=== PATIENT | male | born 1960 | race Caucasian/White ===

== ENCOUNTER 2019-04-23 14:38 | Emergency (ER) | payer OTHER, SELFPAY ==
[2019-04-23 14:41] VITALS: BP 154/104; PULSE 109; RESP 16; TEMP 37.1; O2SAT 97; BMI 34.8
--- NOTE | 2019-04-23 14:55 | CT_ITS ---
STUDY: CT ABDOMEN AND PELVIS WITH CONTRAST REASON FOR EXAM: Male, 58 years old. PT STATED LEFT SIDE PAIN RADIATION DOSAGE (If Supplied By Facility): CTDIvol = ( 17.02 ) mGy, DLP = ( 1579.19 ) mGycm TECHNIQUE: Transaxial images were obtained from the dome of the diaphragm to the symphysis pubis without oral contrast. IV 100mL Isovue-300 was administered. Sagittal and coronal images were reconstructed. Individualized dose optimization techniques were used for this CT. COMPARISON: None. FINDINGS: The visualized lung bases are unremarkable. The visualized portions of the heart are within normal limits. Normal liver. Normal gallbladder and extrahepatic biliary system. Normal spleen. Normal pancreas. Normal bilateral adrenal glands. Normal right kidney. Normal left kidney. Normal visualized stomach. Normal small intestine. There is diverticulosis, with thickening of the colon wall, and pericolonic inflammation changes consistent with acute diverticulitis. The appendix is visualized and appears normal. Normal abdominal aorta. Normal inferior vena cava. Normal retroperitoneum. Normal urinary bladder. Normal abdominal wall. Levoscoliosis of the lumbar spine with degenerative disc disease. CT/Abdomen/Pelvis W IV Cont ONLY IMPRESSION: Diverticulitis the proximal sigmoid colon without abscess or perforation. Electronically Signed: Lucio Sun MD at 16:45 EST Tel , Service support ,
--- NOTE | 2019-04-23 15:02 | ED.VIS.GEN ---
History of Present Illness Chief Complaint: Abd Pain Informant: Patient Onset: Yesterday Context: Gradual Onset Timing: Continuous Current Severity: Moderate Maximum Severity: Moderate Narrative: Patient is an otherwise healthy male who presents to the emergency department with left lower quadrant pain. He states pain began last night. He states it felt like a dull ache in his left lower quadrant. Overnight throughout the morning, the pain is worsened. He states if he bends or twists, the patient is more significant. He denies fever but does admit to chills. He is been moving his bowels without issue. He denies any other systemic complaints. He states he never had pain like this before. He has no prior history of abdominal surgery. He is otherwise been in his normal state of health. Prior similar symptoms: No Recent Illness/Hospitalization: No Past Medical History - Allergies and Home Meds Allergies/Adverse Reactions: Allergies No Known Allergies Allergy (Verified 04/23/19 14:40) Primary Care Physician: Pawel Juares MD [NON-STAFF] - Prior records reviewed: Yes Past Medical History: None Surgical History: no surgical history Smoking Status: Never smoker Review of Systems General: Reports: Chills. Denies: Fever, Sweats Eyes: Denies: Visual changes - bilaterally, Diplopia ENT: Denies: Rhinorrhea, Sore throat Cardiovascular: Denies: Chest pain, Palpitations Respiratory: Denies: Dyspnea, Cough, Dyspnea on exertion Gastrointestinal: Reports: Abdominal pain. Denies: Nausea, Vomiting, Diarrhea, Melena, Hematochezia Genitourinary: Denies: Dysuria, Hematuria, Frequency Musculoskeletal: Denies: Back pain, Extremity Pain Skin: Denies: Rash, Wounds Neurological: Denies: Headache, Weakness, Numbness Physical Exam Vital Signs/Narrative: Vital Signs Temp Pulse Resp BP Pulse Ox 04/23/19 14:41 98.8 F 109 H 16 154/104 H 97 Inital Vital Signs reviewed: Yes General: Well nourished, Well developed, No Acute Distress Head: Normocephalic, Atraumatic Eyes: Perrl, EOMI ENT: Moist mucous membranes, No rhinorrhea Neck: Supple, Nontender Cardiovascular: Regular rate, Regular rhythm, No murmurs Respiratory: No distress, CTA bilaterally, Chest nontender Abdomen: Soft, Nondistended, Normal bowel sounds, Tender. Negative for: Guarding, Rebound tenderness, Hyperactive bowel sounds Back: Nontender, Normal Inspection Extremities: Nontender, No edema Skin: Normal color, No rash Neurological: Alert, Oriented x3, Cranial nerves II-XII grossly intact, Normal Strength, Normal Sensation Psychological: Normal affect, Normal Mood Diagnostic/Tx/Re-eval Clinical Impression(s) from Imaging Studies Abdomen/Pelvis CT 04/23/19 14:55 IMPRESSION: Diverticulitis the proximal sigmoid colon without abscess or perforation. Electronically Signed: Lucio Sun MD at 16:45 EST Tel , Service support , - Medical Decision Making Laboratory Results 04/23/19 15:15: WBC 20.9 H, RBC 5.36, Hgb 15.4, Hct 46.2, MCV 86.2, MCH 28.7, MCHC 33.3, RDW Std Deviation 44.0 H, RDW Coeff of Inga 14.0, Plt Count 308, MPV 10.3, Immature Gran % (Auto) 0.500, Neut % (Auto) 83.7 H, Lymph % (Auto) 8.0 L, [place] % (Auto) 7.5, Eos % (Auto) 0.0, Baso % (Auto) 0.3, Absolute Neuts (auto) 17.5 H, Absolute Lymphs (auto) 1.67, Nucleated RBC % 0, Differential Comment SCANNED 04/23/19 15:15: Sodium 134 L, Potassium 3.7, Chloride 102, Carbon Dioxide 26.0, Anion Gap 6, BUN 26 H, Creatinine 1.13, Estim Creat Clear Calc 74.04, Est GFR (MDRD) Af Amer 85, Est GFR (MDRD) Non-Af 70, BUN/Creatinine Ratio 23.0 H, Glucose 120 H, Calcium 9.0, Total Bilirubin 1.30 H, AST 14 L, ALT 28, Alkaline Phosphatase 84, Total Protein 8.4 H, Albumin 4.2, Globulin 4.2, Albumin/Globulin Ratio 1.0 The patient presents to the emergency department left lower quadrant pain. He also admits to chills. IV was established. He declined any analgesics but was given Toradol with some improvement. Screening labs do show leukocytosis. Patient is afebrile with normal heart rate. Patient underwent CT imaging which does demonstrate diverticulitis without perforation or abscess. I did discuss options with him. He states he is feeling fine. He wants to attempt outpatient therapy. I do feel that this is reasonable. The patient is given a dose of IV Zosyn will be continued on Augmentin stool softeners. He is comfortable with this plan of care. He was also counseled to be reevaluated within the next 24 hours or if the symptoms worsen in any way to return to the emergency department. He will be discharged home. Impression 1. Acute diverticulitis ED Disposition - Plan for ED Patient: Instructions: Diverticulitis Prescriptions: Amox/Clavulanate Tablet [Augmentin Tablet] 875 mg PO Q12H #20 tab Prescription Printed Docusate Sodium [Colace] 100 mg PO DAILY #20 cap Prescription Printed Referrals: Pawel Juares MD [NON-STAFF] - 1 Day for another exam
[2019-04-23] MEDS: Ketorolac 30 MG/ML Syringe 15 MG IV (15:15)
[2019-04-23] MEDS: 0.9% Normal Saline 1,000 ML 1000 ML IV (15:18)
[2019-04-23 15:33] LABS: Absolute Lymphocyte Count 1.67 X10^3/uL (0.83-4.51); Absolute Neutrophil Count 17.5 X10^3/uL (2.0-7.7); Basophil# 0.06 X10^3/uL; Basophil% 0.3 % (0-1); Hematocrit 46.2 % (40-54); Hemoglobin 15.4 g/dL (13.0-16.5); Lymphocyte # 1.67 X10^3/ul (4.0); Mean Corp Hgb Conc 33.3 g/dL (32-36); Mean Corpuscular Hgb 28.7 pg (27.0-32.0); Mean Corpuscular Volume 86.2 fL (80-94); Mean Platelet Vol. 10.3 fl (6.2-12.0); Monocyte# 1.56 X10^3/uL; Monocyte% 7.5 % (0-10); NRBC Flagged by Analyzer 0 % (0-5); Neutrophil # 17.47 X10^3/uL (2.7-7.7); Neutrophil % 83.7 % (47-70); POSITIVE DIFFERENTIAL YES; Platelet Count 308 K/mm3 (150-450); Red Blood Count 5.36 M/mm3 (4.6-6.2); White Blood Count 20.9 K/mm3 (4.4-11.0)
[2019-04-23 15:36] LABS: Differential Indicated SCAN CRITERIA MET
[2019-04-23 15:58] LABS: Differential Comment SCANNED
[2019-04-23 16:19] LABS: AST(SGOT) 14 U/L (15-37); Alanine Aminotransfer ALT/SGPT 28 U/L (16-61); Albumin, Serum 4.2 g/dL (3.2-5.0); Alkaline Phosphatase 84 U/L (45-117); Anion Gap 6 (5-15); BUN 26 mg/dL (7-18); Chloride 102 mmol/L (98-107); Creatinine, Serum 1.13 mg/dL (0.70-1.30); EST Glomerular Filtration Rate 70 mL/min (>60); Est Glom Filt Rate - Afr Amer 85 mL/min (>60); Estimated Creatinine Clearance 74.04 ml/min; Globulin 4.2 g/dL (2.2-4.2); Glucose 120 mg/dL (74-106); Potassium 3.7 mmol/L (3.5-5.1); Protein, Total 8.4 g/dL (6.4-8.2); Sodium Level 134 mmol/L (136-145)
[2019-04-23 16:39] VITALS: BP 149/79; PULSE 94; RESP 16; O2SAT 98
[2019-04-23 17:03] LABS: Bacteria 0 SEEN /hpf (None Seen); Mucous, Urine 0 SEEN /hpf (<or=2+)
[2019-04-23 17:05] LABS: Glucose, Dipstick Normal (Normal); Ketone-Dipstick Negative (Negative); Leukocyte Esterase-Dipstick Negative /ul (Negative); Nitrite-Dipstick Negative (Negative); Occult Blood-Urine 10 /ul (Negative); Protein-Dipstick Negative (Negative); Urine Bilirubin Dipstick Negative (Negative); Urine Clarity Clear (Clear); Urine Urobilinogen Normal (Normal)
[2019-04-23 17:06] LABS: Color, Urine YELLOW (Yellow)
[2019-04-23 17:12] LABS: Squamous Epithelial Cells - UA 0-5 SEEN /hpf (0-5)
[2019-04-23 17:13] LABS: Transitional Epithelial - Ur 0-5 SEEN /hpf (0-5); White Blood Cells 0-5 SEEN /hpf (0-5)
[2019-04-23 17:14] LABS: Red Blood Cells-Urine 0-5 SEEN /hpf (0-5)
[2019-04-23 18:15] VITALS: BP 140/89; PULSE 87; RESP 16; TEMP 36.7; O2SAT 99
== END 2019-04-23 18:25 | disposition home or self-care (01) ==
LOC: ED 15:27
PROVIDERS: Emergency Provider Emergency Medicine
DX: K57.32 Diverticulitis of large intestine without perforation or abscess without bleeding (principal)
CPT/HCPCS: 74177; 80053; 81001; 85025; 96361; 96365; 96375; 99283; J7030; Q9967; A4216

== ENCOUNTER → 2019-06-05 09:28 | Outpatient (CLI) | payer OTHER, SELFPAY ==
[2019-06-05 12:27] LABS: Absolute Lymphocyte Count 2.69 X10^3/uL (0.83-4.51); Absolute Neutrophil Count 4.9 X10^3/uL (2.0-7.7); Basophil# 0.06 X10^3/uL; Basophil% 0.7 % (0-1); Eosinophil# 0.39 X10^3/uL; Eosinophils% 4.4 % (0-5); Hematocrit 47.3 % (40-54); Lymphocyte # 2.69 X10^3/ul (4.0); Lymphocyte % 30.5 % (19-41); Mean Corp Hgb Conc 33.8 g/dL (32-36); Mean Corpuscular Hgb 29.3 pg (27.0-32.0); Mean Corpuscular Volume 86.5 fL (80-94); Mean Platelet Vol. 10.7 fl (6.2-12.0); Monocyte# 0.72 X10^3/uL; Monocyte% 8.2 % (0-10); NRBC Flagged by Analyzer 0 % (0-5); Neutrophil # 4.93 X10^3/uL (2.7-7.7); Platelet Count 333 K/mm3 (150-450); RBC Distribution Width CV 14.1 % (11.6-14.6); RBC Distribution Width SD 45.1 fl (35.1-43.9); Red Blood Count 5.47 M/mm3 (4.6-6.2); White Blood Count 8.8 K/mm3 (4.4-11.0)
[2019-06-05 12:30] LABS: ALB/GLOB Ratio 1.2 RATIO (0.9-2.4); AST(SGOT) 25 U/L (15-37); Alanine Aminotransfer ALT/SGPT 42 U/L (16-61); Albumin, Serum 4.4 g/dL (3.2-5.0); Alkaline Phosphatase 90 U/L (45-117); Anion Gap 9 (5-15); BUN 28 mg/dL (7-18); BUN/Creat Ratio 25.7 RATIO (10-20); Calcium,Total 8.8 mg/dL (8.5-10.1); Chloride 103 mmol/L (98-107); Cholesterol 215 mg/dL (200); Creatinine, Serum 1.09 mg/dL (0.70-1.30); EST Glomerular Filtration Rate 73 mL/min (>60); Est Glom Filt Rate - Afr Amer 89 mL/min (>60); Globulin 3.8 g/dL (2.2-4.2); Glucose 97 mg/dL (74-106); High Density Lipoprotein 41 mg/dL; Magnesium 2.3 mg/dL (1.6-2.6); Potassium 4.1 mmol/L (3.5-5.1); Protein, Total 8.2 g/dL (6.4-8.2); Sodium Level 138 mmol/L (136-145); Thyroid Stim Hormone (TSH) 2.01 uIU/mL (0.358-3.74); Triglycerides 120 mg/dL; Very Low Density Lipoprotein 24 mg/dL (5-40)
== END ==
PROVIDERS: PCP Family Medicine; Visit Provider Family Medicine
DX: I49.9 Cardiac arrhythmia, unspecified (principal); K57.92 Diverticulitis of intestine, part unspecified, without perforation or abscess without bleeding; R17 Unspecified jaundice
CPT/HCPCS: 36415; 80053; 80061; 83735; 84439; 84443; 85025

== ENCOUNTER 2019-12-19 15:41 | Inpatient (IN) | payer OTHER, SELFPAY ==
[2019-12-19] VITALS (9 sets, daily range): BP systolic 138–163; BP diastolic 72–88; PULSE 91–99; RESP 16–18; TEMP 36.6–37.3; O2SAT 92–100; BMI 36.6
--- NOTE | 2019-12-19 14:12 | PCM.HP.BLA ---
History and Physical Date of Admission: 12/19/19 [facility] [address] [place], [place] [id number] OFFICE VISIT Date of Service: 12/19/19 MR#: [id number] Acct: [id number] Name: EDDIE KLINE Rep #: [id number] : 1960 Provider: Dr. Mirza Jama MD Age/Sex: 59/M Location: [facility] Status: Signed Intake Vital Signs 12/19/19 Height 5 ft 10 in 12/19/19 Weight: 255 lb 7 oz 12/19/19 BMI 36.6 12/19/19 BP 141/83 H 12/19/19 Blood Pressure Location Rt brachial 12/19/19 Position Sitting 12/19/19 Respiration 20 H 12/19/19 Pulse 90 12/19/19 Pulse Source NIBP 12/19/19 Temp 97.5 F L 12/19/19 Temp Source Temporal 12/19/19 Pulse Oximetry (%) 96 12/19/19 Oxygen Delivery Method room air 12/19/19 BMI 34.8 Intake Visit Reasons: Diverticulitis flare Chief Complaint: RLQ pain Maintenance Helper Required: No Is patient in pain?: No Allergies No Known Allergies Allergy (Verified 12/19/19 12:38) Medications Loratadine 10 mg PO DAILY 04/23/19 [History Confirmed 12/19/19] Naproxen Sodium [Aleve] 220 mg PO DAILY 04/23/19 [History Confirmed 12/19/19] lactobacillus combination no.9 4 billion cell capsule 4,000 mmu cells PO DAILY 06/19/19 [History Confirmed 12/19/19] valacyclovir 1 gram tablet 1,000 mg PO Q12H PRN 06/19/19 [History Confirmed 12/19/19] PFSH Medical History Arthritis (Acute) PVC (premature ventricular contraction) (Acute) Cervical radicular pain (Acute) Diverticulitis (Acute) Surgical History History of arthroscopy of both knees (Acute) Family History Son Heart disease Social History (Updated 12/19/19 @ 13:[address] Mirza Jama MD) Smoking Status: Never smoker second hand exposure: No alcohol intake: current alcohol intake frequency: holidays/special occasions only Alcohol type: beer substance use type: does not use caffeine: Yes what type of physical activity do you participate in: none frequency: does not exercise HPI HPI HPI: EDDIE KLINE, is a 59 M who presents to the office today for HPI HPI Surgical H&P: Yes HPI: EDDIE KLINE, is a 59 M who presents to the office today for Evaluation of right lower quadrant abdominal pain. Patient states that he started to develop some right sided abdominal pain that got quite severe to the point where he took some Percocet at home went to bed and now he has localized tenderness at McBurney's point. He is not complaining of any fevers nausea or vomiting. He has had episodes of diverticulitis in the past initially thought that this was a another episode. ROS General General: Yes appetite and fatigue; no weight change, colon cancer, breast cancer or weakness HEENT HEENT: No difficulty swallowing, eye injury, eye surgery, swollen glands or hoarseness Endo Endocrine: No thyroid disease, diabetes mellitus, thyroid cancer, Hair loss, heat intolerance or cold intolerance Cardio Cardiovascular: No murmur, pacemaker, heart disease, atrial fibrillation, high blood pressure, heart attack, heart stent, palpitations, shortness of breat with exertion or chest pain Psych Psychiatric: No depression, anxiety or hearing voices Resp Respiratory: No shortness of breath, No sleep apnea, No cough, No COPD, No asthma, No emphysema, No wheezing Gastro Gastrointestinal: Yes abdominal pain, No nausea or vomiting, No diarrhea, Yes constipation, No blood in stool, No acid reflux, No hemorrhoids, No ulcers, No gallbladder problem, No black,tarry stools Anjum Hematologic: No blood thinners, No blood disorders, No bleeding, No anemia, No blood clots Neuro Neurologic: No weakness Exam Const General: no acute distress, well developed, well hydrated Orientation: oriented to person, oriented to place, oriented to time [facility] Head: normocephalic, atraumatic Ears: external ears normal Mouth: moist mucous membranes Eyes Sclera: sclerae normal Pupils: normal by confrontation Neck Neck: no lymphadenopathy noted Neck mass: No Thyroid: thyroid normal, symmetrical Chest Chest palpation & inspection: normal inspection of the chest Resp Effort & Inspection: normal respiratory effort Auscultation: clear to auscultation bilaterally Percussion: percussion normal Cardio Rate: regular rate Rhythm: regular rhythm Heart Sounds: no murmurs GI Palpation: soft, no hepatosplenomegaly, no masses, tender in the RLQ and at McBurney's point Rectal Exam: other Other: Rectal exam deferred. Extrem General: normal to inspection, no clubbing, cyanosis or edema Assessment & Plan Problems 1. Acute appendicitis with localized peritonitis, unspecified whether abscess present, unspecified whether gangrene present, unspecified whether perforation present K35.30 Plan My plan is to perform a laparoscopic appendectomy. Risk benefits to include bleeding infection possible delayed abscess formation which could require further surgery have been reviewed with the patient. Patient also understands that he may need to have a drain placed if this is ruptured which I do not think that it is. We reviewed the pre-operative plans with the patient. Risks and benefits of the procedure were fully explained, including but not limited to infection, neurovascular injury, continued pain, arthritis, stiffness, need for further surgery, re-injury, DVT, PE, general risks of anesthesia, and loss of the limb or life. The patient understands all the risks and does wish to proceed with written consent. Coding Level of Care Code Off vis,est,level 3 Diagnoses Acute appendicitis with localized peritonitis, unspecified whether abscess present, unspecified whether gangrene present, unspecified whether perforation present K35.30 ??Acute appendicitis type: with localized peritonitis ??Appendicitis gangrene presence: unspecified whether gangrene present ??Appendicitis perforation presence: unspecified whether perforation present ??Appendicitis abscess presence: unspecified whether abscess present Comment Modifier 57 12/19/19 1305 <Electronically signed by Mirza Jama MD> Date Mirza Jama MD Cosigner Signature: Date (if applicable) CC: Dr. Pawel Juares MD ~
[2019-12-19] MEDS: Lactated Ringers 1,000 ML 100 ML IV ×2 (14:23→16:30)
--- NOTE | 2019-12-19 14:36 | EKG12_ITS ---
Test Reason : PREOP Blood Pressure : / mmHG Vent. Rate : 083 BPM Atrial Rate : 083 BPM P-R Int : 166 ms QRS Dur : 102 ms QT Int : 386 ms P-R-T Axes : 052 -21 036 degrees QTc Int : 453 ms Sinus rhythm with occasional Premature ventricular complexes Otherwise normal ECG No previous ECGs available Confirmed by ROSIE CLARK, ANITHA ([id number]), editor city CELESTINE RIOJAS ([id number]) on 12/25/2019 11:44:14 AM Referred By: Mirza Jama Confirmed By:DANUTA VELEZ MD
[2019-12-19 15:05] LABS: Absolute Lymphocyte Count 1.27 X10^3/uL (0.83-4.51); Absolute Neutrophil Count 16.7 X10^3/uL (2.0-7.7); Basophil# 0.05 X10^3/uL; Basophil% 0.3 % (0-1); Eosinophil# 0.01 X10^3/uL; Eosinophils% 0.1 % (0-5); Hematocrit 43.7 % (40-54); Hemoglobin 14.7 g/dL (13.0-16.5); Lymphocyte # 1.27 X10^3/ul (4.0); Lymphocyte % 6.6 % (19-41); Mean Corp Hgb Conc 33.6 g/dL (32-36); Mean Corpuscular Hgb 29.8 pg (27.0-32.0); Mean Corpuscular Volume 88.6 fL (80-94); Monocyte# 1.07 X10^3/uL; Monocyte% 5.6 % (0-10); NRBC Flagged by Analyzer 0 % (0-5); Neutrophil # 16.74 X10^3/uL (2.7-7.7); Platelet Count 288 K/mm3 (150-450); RBC Distribution Width CV 14.2 % (11.6-14.6); RBC Distribution Width SD 45.9 fl (35.1-43.9); Red Blood Count 4.93 M/mm3 (4.6-6.2); White Blood Count 19.2 K/mm3 (4.4-11.0)
[2019-12-19 15:22] LABS: Anion Gap 6 (5-15); BUN 18 mg/dL (7-18); Calcium,Total 9.1 mg/dL (8.5-10.1); Chloride 101 mmol/L (98-107); EST Glomerular Filtration Rate 81 mL/min (>60); Est Glom Filt Rate - Afr Amer 98 mL/min (>60); Glucose 99 mg/dL (74-106); Potassium 3.4 mmol/L (3.5-5.1); Sodium Level 136 mmol/L (136-145)
--- NOTE | 2019-12-19 15:39 | PCM.OPRPT ---
Problem List (1) Acute appendicitis Status: Acute Qualifiers: Acute appendicitis type: with localized peritonitis Appendicitis gangrene presence: without gangrene Appendicitis perforation presence: without perforation Appendicitis abscess presence: without abscess Qualified Code(s): K35.30 - Acute appendicitis with localized peritonitis, without perforation or gangrene Report of Operation Date of Procedure: 12/19/19 Pre-Operative Diagnosis: Acute appendicitis Post-Operative Diagnosis: Same Surgery/Procedure Performed:: Laparoscopic appendectomy Type of Anesthesia:: General Anesthesiologist: Jack Cook Specimen's removed: Appendix Drains: 15 round Vernon-Doyle Estimated Blood Loss (mL): < 25 cc Description of Procedure: Patient was brought into the operating room. Placed in the supine position. Under excellent general trach intubation abdomen was sterilely prepped and draped in usual fashion. Local was injected infraumbilically dissection was carried down to the fascia the fascia grasped with a [place] varies needle was placed inside the abdomen the abdomen was insufflated to 15 torr. A 10/12 trocar was placed without difficulty. Suprapubic #5 trocar was placed and a left lower quadrant #5 trocar was placed both of these under direct visualization without injury to underlying structures. Purulent material was identified in the right lower quadrant I dissected the small intestines free from the right lower quadrant the appendix was resting up against the sigmoid colon which was actually plastered to the right pelvic wall. I dissected this free with the Enseal. I came down on the mesoappendix with the Enseal I had excellent hemostasis I transected the base of the appendix with a 45 linear cutter. I had excellent hemostasis placed a specimen in a specimen bag and I delivered through the umbilical port. I reinflated the abdomen I inspected the sigmoid colon it was abnormally plastered to the right pelvic sidewall. There was no pus coming from it it seems somewhat firm but the anterior aspect was very pliable and soft I did not think that it was appropriate for me to try to dissect further back there because I was not prepared to do a sigmoid colon resection on him if I were to get into the sigmoid colon itself.. I am really not sure whether or not the appendix caused inflammation of the colon or if the colon because the inflammation of the appendix. At this point I thought the best thing to do was irrigate out the area and place a drain into the pelvis area. I placed the trocar in the right upper quadrant I brought the drain in through the left lower quadrant and brought it out through the right upper quadrant. I sutured it to the skin with a 3-0 nylon. I placed a second 3-0 nylon on the skin to close this defect completely. I placed it at the base of where the appendix was and down to where the inflamed area of the cecum was located. Once again I inspected I saw no stool or undrained abscesses I removed the trochars under direct visualization. Fascia the umbilical port was closed with a [id number] stitch of 0 Vicryl. Skin incisions were closed with subcuticular stitches of 4-0 Monocryl. Steri-Strips were applied sterile dressings were applied and the patient tolerated the procedure well. I am going to keep him on a clear liquid diet. I am going to obtain a CAT scan of his abdomen and pelvis with IV and p.o. contrast tomorrow. Will remain on IV antibiotics. - Admit VTE Documentation VTE Present on Admission: No VTE Mechan Device Prophylaxis: SCD's VTE Pharm Prophylaxis ordered?: No Reason prophylaxis not ordered:: Treatment Not Indicated [id number]: [id number] Laparoscopy appendectomy
--- NOTE | 2019-12-19 16:20 | APP_PTH ---
PATIENT: EDDIE KLINE LOC: [facility] U#:[id number] AGE/SX: 59/M ROOM: MS318 RE12/19/[address]: Dr. Mirza Jama MD : 1960 BED: 1 DIS: 12/24/2019 SPEC #: [id number] RECD: 12/20/19 07:28 STATUS: TAMMY REQ #: [id number] KRYSTA: 12/19/19 16:[address]: Mirza Jama DEPT: SURGICAL PATHOLOGY RECD BY: Randall Brand ENTERED: 12/20/19 07:59 SP TYPE: APPENDIX OTHR DR: Dr. Pawel Juares MD Tissues: Appendix, NOS Procedures: Surgery Specimen Level III HEADER OPERATION: Laparoscopic appendectomy PRE-OP DIAGNOSIS: Acute appendicitis TISSUE SUBMITTED: Appendix MICROSCOPIC DIAGNOSIS Appendix, appendectomy: Acute periappendicitis. See comment. ANALIA:richardson 12/23/19 COMMENT The entire appendix is examined. The acute inflammation predominantly is noted in the periappendiceal adipose tissue and adjacent muscularis propria of appendix. Luminal and mucosal inflammation is not seen. Clinical correlation and appropriate follow up are necessary. Case has been reviewed in consultation with Dr. Romeo who concurs with the above diagnosis. IDC:AM MICROSCOPIC DESCRIPTION Slides are reviewed. GROSS DESCRIPTION Received in fixative is one container labeled with the patient's name and designated appendix. The specimen consists of an L-shaped appendix measuring 5 cm in length and up to 0.7 cm in diameter. The attached periappendiceal adipose tissue measures up to 1.5 cm in width. The serosa is congested. No obvious perforation is identified. The lumen does not contain any fecalith. The entire appendix is submitted in two cassettes as follows: 1 - tip and proximal portion, 2 - rest of the appendix. / SJ:rg 12/20/19 TC:2 CPT: 50475
[2019-12-19] MEDS: Bupivacaine Mpf 0.5% 30 ML VIAL (16:36)
[2019-12-19] MEDS: 0.9% Saline Lock 10 ML Syringe IV (22:06)
[2019-12-20 02:00] VITALS: BP 133/71; PULSE 75; RESP 16; TEMP 36.6; O2SAT 96
[2019-12-20] MEDS: oxyCODONE 5 MG Tablet PO (02:13)
[2019-12-20 05:54] VITALS: BP 120/63; PULSE 65; RESP 16; TEMP 36.9; O2SAT 95
[2019-12-20 06:56] LABS: Absolute Lymphocyte Count 1.02 X10^3/uL (0.83-4.51); Absolute Neutrophil Count 17.7 X10^3/uL (2.0-7.7); Basophil# 0.02 X10^3/uL; Basophil% 0.1 % (0-1); Hematocrit 43.5 % (40-54); Hemoglobin 14.4 g/dL (13.0-16.5); Lymphocyte # 1.02 X10^3/ul (4.0); Lymphocyte % 5.2 % (19-41); Mean Corp Hgb Conc 33.1 g/dL (32-36); Mean Corpuscular Hgb 29.4 pg (27.0-32.0); Mean Corpuscular Volume 88.8 fL (80-94); Mean Platelet Vol. 10.7 fl (6.2-12.0); Monocyte# 0.68 X10^3/uL; Monocyte% 3.5 % (0-10); NRBC Flagged by Analyzer 0 % (0-5); Neutrophil # 17.72 X10^3/uL (2.7-7.7); Neutrophil % 90.7 % (47-70); POSITIVE MORPHOLOGY YES; Platelet Count 349 K/mm3 (150-450); RBC Distribution Width CV 14.4 % (11.6-14.6); RBC Distribution Width SD 46.7 fl (35.1-43.9); White Blood Count 19.5 K/mm3 (4.4-11.0)
[2019-12-20 06:58] LABS: Differential Indicated SCAN CRITERIA MET
[2019-12-20 07:22] LABS: Anion Gap 8 (5-15); BUN 19 mg/dL (7-18); BUN/Creat Ratio 18.1 RATIO (10-20); Calcium,Total 9.1 mg/dL (8.5-10.1); Chloride 105 mmol/L (98-107); Creatinine, Serum 1.05 mg/dL (0.70-1.30); EST Glomerular Filtration Rate 76 mL/min (>60); Est Glom Filt Rate - Afr Amer 92 mL/min (>60); Estimated Creatinine Clearance 76.28 ml/min; Glucose 126 mg/dL (74-106); Potassium 3.9 mmol/L (3.5-5.1); Sodium Level 138 mmol/L (136-145)
[2019-12-20 07:43] VITALS: BP 131/77; PULSE 75; RESP 18; TEMP 36.6; O2SAT 95
--- NOTE | 2019-12-20 08:30 | CT_ITS ---
STUDY: CT ABDOMEN AND PELVIS WITH CONTRAST REASON FOR EXAM: Male, 59 years old. APPENDECTOMY YESTERDAY. DRAIN IN PLACE RADIATION DOSAGE (If Supplied By Facility): CTDIvol = ( 11.38 ) mGy, DLP = ( 1433.68 ) mGycm TECHNIQUE: Transaxial images were obtained from the dome of the diaphragm to the symphysis pubis without oral contrast. 100mL Isovue-300 was administered. Sagittal and coronal images were reconstructed. Individualized dose optimization techniques were used for this CT. COMPARISON: April 23, 2019. FINDINGS: There is lower lung consolidation. The visualized portions of the heart are within normal limits. There is hepatomegaly with diffuse hepatic enlargement. Normal gallbladder and extrahepatic biliary system. Normal spleen. Normal pancreas. Normal bilateral adrenal glands. Normal right kidney. Normal left kidney. Normal visualized stomach. Mild fluid and gaseous distention of small intestine. There are multiple colonic diverticula consistent with diverticulosis. There are surgical clips in the region of the appendix consistent with a prior appendectomy. There is a surgical drain in the abdomen. There is no fluid collection. There is mild infiltrative change. There is mild free intraperitoneal air in the abdomen. Normal abdominal aorta. Normal inferior vena cava. Normal retroperitoneum. Normal urinary bladder. Normal abdominal wall. There is levoscoliosis with degenerative change of the spine. There is sacroiliac spurring and partial ankylosis. CT/Abdomen/Pelvis WITH Contrast IMPRESSION: Status post appendectomy. There is drain in place. No abscess or fluid collection. Pneumoperitoneum consistent with recent postoperative status. Small bowel distention with fluid and air suggesting ileus. Colonic diverticulosis. Lower lung atelectasis or infiltrates. Electronically Signed: Clinton Jung MD at 10:28 EDT , Service support ,
[2019-12-20] MEDS: 0.9% Saline Lock 10 ML Syringe IV (10:28)
--- NOTE | 2019-12-20 11:24 | PN.SURG_ITS ---
Patient Problems: Active and Suspected Problems (Last Reviewed 12/19/19 @ 13:[address] Mirza Jama MD) Acute appendicitis (Acute) Subjective: Patient is feeling significantly better today. Has appropriate incisional pain. Has passed some slight flatus but no bowel movements he is not experiencing any nausea or vomiting. Objective: Dressings are dry. Fluid in ZIGGY drain is serous in nature. - Physical Exam Vitals/I&O's: Vital Signs Temp Pulse Resp BP Pulse Ox 97.8 F 75 18 131/77 H 95 12/20/19 07:43 12/20/19 07:43 12/20/19 07:43 12/20/19 07:43 12/20/19 07:43 Oxygen Flow Rate (L/min) 2 Oxygen Delivery Method Room Air Weight: 255 lb Body Mass Index (BMI) 36.6 Intake and Output for Last 24 Hours 12/18/19 12/19/19 12/20/19 23:59 23:59 23:59 Intake Total 1350.34 / 1650.34 1180.83 / 1180.83 Output Total 210 / 1445 1635 / 1635 Balance 1140.34 / 205.34 -454.17 / -454.17 Laboratory Results 12/19/19 14:57: WBC 19.2 H, RBC 4.93, Hgb 14.7, Hct 43.7, MCV 88.6, MCH 29.8, M CHC 33.6, RDW Std Deviation 45.9 H, RDW Coeff of Inga 14.2, Plt Count 288, MPV 10.0, Immature Gran % (Auto) 0.400, Neut % (Auto) 87.0 H, Lymph % (Auto) 6.6 L, [place] % (Auto) 5.6, Eos % (Auto) 0.1, Baso % (Auto) 0.3, Absolute Neuts (auto) 16.7 H, Absolute Lymphs (auto) 1.27, Nucleated RBC % 0 12/19/19 14:57: Sodium 136, Potassium 3.4 L, Chloride 101, Carbon Dioxide 29.0, Anion Gap 6, BUN 18, Creatinine 1.00, Estim Creat Clear Calc 80.10, Est GFR ( RD) Af Amer 98, Est GFR (MDRD) Non-Af 81, BUN/Creatinine Ratio 18.0, Glucose 99, Calcium 9.1 10/09/20 05:53: WBC 19.5 H, RBC 4.90, Hgb 14.4, Hct 43.5, MCV 88.8, MCH 29.4, MCHC 33.1, RDW Std Deviation 46.7 H, RDW Coeff of Inga 14.4, Plt Count 349, MPV 10.7, Immature Gran % (Auto) 0.500, Neut % (Auto) 90.7 H, Lymph % (Auto) 5.2 L, [place] % (Auto) 3.5, Eos % (Auto) 0.0, Baso % (Auto) 0.1, Absolute Neuts (auto) 17.7 H, Absolute Lymphs (auto) 1.02, Nucleated RBC % 0 12/20/19 05:53: Sodium 138, Potassium 3.9, Chloride 105, Carbon Dioxide 25.0, Anion Gap 8, BUN 19 H, Creatinine 1.05, Estim Creat Clear Calc 76.28, Est GFR (MDRD) Af Amer 92, Est GFR (MDRD) Non-Af 76, BUN/Creatinine Ratio 18.1, Glucose 126 H, Calcium 9.1 Current Medications Hydromorphone HCl (Dilaudid Inj) 0.5 - 1 mg IV Q2H PRN PRN PRN Reason: Pain Score 1-10 Piperacillin Sod/Tazobactam (Sod 3.375 gm/ Sodium Chloride) 50 mls @ 12.5 mls/hr IV Q8 [facility] Last Infusion: 12/20/19 10:29 Dose: 12.5 mls/hr Documented by: Sodium Chloride () 250 mls @ 15 mls/hr IV .[id number] PRN PRN Reason: Saline Flush Sodium Chloride () 250 mls @ 15 mls/hr IV .[id number] PRN PRN Reason: Additional IVPB Infusion Potassium Chloride/Sodium Chloride () 1,000 mls @ 100 mls/hr IV .Q10H [facility] Last Infusion: 12/20/19 06:01 Dose: 0 mls/hr Documented by: Ondansetron HCl (Zofran) 4 mg IV Q8H PRN PRN PRN Reason: NAUSEA Oxycodone HCl (Oxyir) 5 - 10 mg PO Q4H PRN PRN PRN Reason: Pain Score 1-10 Last Admin: 12/20/19 02:13 Dose: 5 mg Documented by: Sodium Chloride () 10 - 40 ml IV UD PRN PRN Reason: SALINE FLUSH Last Admin: 12/20/19 10:28 Dose: 10 ml Documented by: Medical Necessity - Tobacco Use Smoking Status: Never smoker Assessment/Plan All Active Problems (Last Reviewed 12/19/19 @ 13:[address] Mirza Jama MD) Acute appendicitis (Acute) Arthritis (Acute) PVC (premature ventricular contraction) (Acute) Cervical radicular pain (Acute) Diverticulitis (Acute) Postoperative day #1 White count really has not come down much with less than a full day of IV antibiotics. We will continue the IV antibiotics. We will leave the drain in place. Will encourage the patient to ambulate. And chew gum. We will see the patient tomorrow morning likely remove his drain. The CAT scan that I obtained showed only diverticulosis no signs of diverticulitis and no signs of any undrained abscesses. ZIGGY drain appears to be in appropriate place and the swelling of the small intestine that is identified is pretty appropriate for what I saw during his case. Hopefully will show continued improvement with IV antibiotics.
--- NOTE | 2019-12-20 13:39 | CASEMGMT ---
RN CM Assessment. Intro role of CM to patient in room. The patient is awake, alert and able to participate in assessment. He states he is independent, has been in [facility] visiting with his son who is hospitalized. He spoke at length regarding his son's condition. the patient plans to return home with family support. PCP: Dr. Pawel Juares Specialist: Dr. Jama Pharmacy: [facility] Retail [facility] [place]: , Rhianna Robert Living arrangements: Lives independently with his . No care needs identified. HHC/SNF: none Transportation: drives, or can drive Patient's dc goals: home on dc DC PLAN: Home on discharge. No needs identified. RN CM let patiient know to contac cm if concerns or needs re: dc arise. Padmaja DON RN ACM
[2019-12-20 14:07] VITALS: BP 137/81; PULSE 74; RESP 18; TEMP 36.8; O2SAT 95
[2019-12-20 20:29] VITALS: BP 139/80; PULSE 65; RESP 16; TEMP 36.8; O2SAT 96
[2019-12-21 02:31] VITALS: BP 135/70; PULSE 71; RESP 16; TEMP 36.8; O2SAT 100
[2019-12-21] MEDS: oxyCODONE 5 MG Tablet PO (07:26)
[2019-12-21 07:34] LABS: Absolute Lymphocyte Count 1.87 X10^3/uL (0.83-4.51); Absolute Neutrophil Count 15.1 X10^3/uL (2.0-7.7); Basophil# 0.03 X10^3/uL; Basophil% 0.2 % (0-1); Eosinophil# 0.15 X10^3/uL; Eosinophils% 0.8 % (0-5); Hematocrit 45.5 % (40-54); Hemoglobin 14.7 g/dL (13.0-16.5); Lymphocyte # 1.87 X10^3/ul (4.0); Lymphocyte % 10.1 % (19-41); Mean Corp Hgb Conc 32.3 g/dL (32-36); Mean Corpuscular Hgb 28.6 pg (27.0-32.0); Mean Corpuscular Volume 88.5 fL (80-94); Mean Platelet Vol. 10.6 fl (6.2-12.0); Monocyte# 1.32 X10^3/uL; Monocyte% 7.1 % (0-10); NRBC Flagged by Analyzer 0 % (0-5); Neutrophil # 15.06 X10^3/uL (2.7-7.7); Neutrophil % 81.2 % (47-70); Platelet Count 397 K/mm3 (150-450); RBC Distribution Width CV 14.5 % (11.6-14.6); RBC Distribution Width SD 47.2 fl (35.1-43.9); Red Blood Count 5.14 M/mm3 (4.6-6.2); White Blood Count 18.5 K/mm3 (4.4-11.0)
[2019-12-21 07:52] LABS: Anion Gap 9 (5-15); BUN 27 mg/dL (7-18); BUN/Creat Ratio 26.7 RATIO (10-20); Calcium,Total 8.7 mg/dL (8.5-10.1); Chloride 107 mmol/L (98-107); Creatinine, Serum 1.01 mg/dL (0.70-1.30); EST Glomerular Filtration Rate 80 mL/min (>60); Est Glom Filt Rate - Afr Amer 97 mL/min (>60); Glucose 89 mg/dL (74-106); Potassium 3.8 mmol/L (3.5-5.1); Sodium Level 140 mmol/L (136-145)
[2019-12-21 08:15] VITALS: BP 137/76; PULSE 68; RESP 16; TEMP 36.6; O2SAT 97
--- NOTE | 2019-12-21 08:20 | PN.SURG_ITS ---
Patient Problems: Active and Suspected Problems (Last Reviewed 12/19/19 @ 13:[address] Mirza Jama MD) Acute appendicitis (Acute) Subjective: Patient's pain is slowly improving. He has had small amounts of flatus but no bowel movements as of yet. He is complaining of significant reflux Objective: ZIGGY drain is putting out a lot. All yellow a serous nature power press tender somewhat in the right lower quadrant. Very hypoactive bowel sounds - Physical Exam Vitals/I&O's: Vital Signs Temp Pulse Resp BP Pulse Ox 98.3 F 71 16 135/70 H 100 12/21/19 02:31 12/21/19 02:31 12/21/19 02:31 12/21/19 02:31 12/21/19 02:31 Oxygen Flow Rate (L/min) 2 Oxygen Delivery Method Nasal Cannula Weight: 255 lb Body Mass Index (BMI) 36.6 Intake and Output for Last 24 Hours 12/19/19 12/20/19 12/21/19 23:59 23:59 23:59 Intake Total 1350.34 / 1650.34 2948.33 / 2948.33 433.33 / 433.33 Output Total 210 / 1445 2875 / 3075 770 / 770 Balance 1140.34 / 205.34 73.33 / -126.67 -336.67 / -336.67 Laboratory Results 12/21/19 06:28: WBC 18.5 H, RBC 5.14, Hgb 14.7, Hct 45.5, MCV 88.5, MCH 28.6, MCHC 32.3, RDW Std Deviation 47.2 H, RDW Coeff of Inga 14.5, Plt Count 397, MPV 10.6, Immature Gran % (Auto) 0.600, Neut % (Auto) 81.2 H, Lymph % (Auto) 10.1 L, [place] % (Auto) 7.1, Eos % (Auto) 0.8, Baso % (Auto) 0.2, Absolute Neuts (auto) 15.1 H, Absolute Lymphs (auto) 1.87, Nucleated RBC % 0 12/21/19 06:28: Sodium 140, Potassium 3.8, Chloride 107, Carbon Dioxide 24.0, Anion Gap 9, BUN 27 H, Creatinine 1.01, Estim Creat Clear Calc 79.30, Est GFR (MDRD) Af Amer 97, Est GFR (MDRD) Non-Af 80, BUN/Creatinine Ratio 26.7 H, Glucose 89, Calcium 8.7 Current Medications Acetaminophen (Tylenol) 650 mg PO Q6H PRN PRN PRN Reason: Pain Score 1-10 Al Hydroxide/Mg Hydroxide (Mylanta Ii) 30 ml PO Q6H PRN PRN PRN Reason: INDIGESTION Docusate Sodium (Colace) 200 mg PO BID [facility] Hydromorphone HCl (Dilaudid Inj) 0.5 - 1 mg IV Q2H PRN PRN PRN Reason: Pain Score 1-10 Piperacillin Sod/Tazobactam (Sod 3.375 gm/ Sodium Chloride) 50 mls @ 12.5 mls/hr IV Q8 [facility] Last Admin: 12/21/19 05:12 Dose: 12.5 mls/hr Documented by: Sodium Chloride () 250 mls @ 15 mls/hr IV .[id number] PRN PRN Reason: Saline Flush Sodium Chloride () 250 mls @ 15 mls/hr IV .[id number] PRN PRN Reason: Additional IVPB Infusion Potassium Chloride/Sodium Chloride () 1,000 mls @ 100 mls/hr IV .Q10H [facility] Last Infusion: 12/21/19 05:12 Dose: 0 mls/hr Documented by: Ondansetron HCl (Zofran) 4 mg IV Q8H PRN PRN PRN Reason: NAUSEA Oxycodone HCl (Oxyir) 5 - 10 mg PO Q4H PRN PRN PRN Reason: Pain Score 1-10 Last Admin: 12/21/19 07:26 Dose: 5 mg Documented by: Pantoprazole Sodium (Protonix) 40 mg PO DAILY [facility] Sodium Chloride () 10 - 40 ml IV UD PRN PRN Reason: SALINE FLUSH Last Admin: 12/20/19 10:28 Dose: 10 ml Documented by: Medical Necessity - Tobacco Use Smoking Status: Never smoker Assessment/Plan All Active Problems (Last Reviewed 12/19/19 @ 13:[address] Mirza Jama MD) Acute appendicitis (Acute) Arthritis (Acute) PVC (premature ventricular contraction) (Acute) Cervical radicular pain (Acute) Diverticulitis (Acute) White count has not budged much. Not ready to go home today needs more IV antibiotics and a tincture more time before I will be able to send him home. I will see him again tomorrow I will leave the drain in again tonight and will make a determination if he will be ready to go home by tomorrow.
[2019-12-21] MEDS: Docusate Sodium 100 MG Capsule 200 MG PO ×2 (08:26→22:13)
[2019-12-21] MEDS: Pantoprazole Sodium 40 MG Tablet PO (08:26)
[2019-12-21 14:15] VITALS: BP 145/86; PULSE 73; RESP 16; TEMP 36.4; O2SAT 97
[2019-12-21] MEDS: Acetaminophen 325 MG Tablet 650 MG PO (17:29)
[2019-12-21 20:17] VITALS: BP 152/70; PULSE 82; RESP 16; TEMP 36.9; O2SAT 94
[2019-12-22] MEDS: Acetaminophen 325 MG Tablet 650 MG PO ×3 (01:20→20:05)
[2019-12-22 02:22] VITALS: BP 136/77; PULSE 74; RESP 18; TEMP 36.9; O2SAT 95
[2019-12-22 08:15] VITALS: BP 137/93; PULSE 80; RESP 18; TEMP 36.7; O2SAT 97
[2019-12-22] MEDS: Pantoprazole Sodium 40 MG Tablet PO (08:52)
[2019-12-22] MEDS: Docusate Sodium 100 MG Capsule 200 MG PO ×2 (08:52→21:17)
--- NOTE | 2019-12-22 10:29 | PCM.PN.SRG ---
Patient Problems: Active and Suspected Problems (Last Reviewed 12/19/19 @ 13:[address] Mirza Jama MD) Acute appendicitis (Acute) Subjective: Patient had one small bowel movement really is not that hungry yet. Objective: Dressings are dry. I remove the drain today. - Physical Exam Vitals/I&O's: Vital Signs Temp Pulse Resp BP Pulse Ox 98.0 F 80 18 137/93 H 97 12/22/19 08:15 12/22/19 08:15 12/22/19 08:15 12/22/19 08:15 12/22/19 08:15 Oxygen Flow Rate (L/min) 2 Oxygen Delivery Method Room Air Weight: 255 lb 1.197 oz Body Mass Index (BMI) 36.6 Intake and Output for Last 24 Hours 12/20/19 12/21/19 12/22/19 23:59 23:59 23:59 Intake Total 2948.33 / 2948.33 1787.50 / 1787.50 2733.58 / 2733.58 Output Total 2875 / 3075 1010 / 1010 390 / 390 Balance 73.33 / -126.67 777.50 / 777.50 2343.58 / 2343.58 Current Medications Acetaminophen (Tylenol) 650 mg PO Q6H PRN PRN PRN Reason: Pain Score 1-10 Last Admin: 12/22/19 08:51 Dose: 650 mg Documented by: Al Hydroxide/Mg Hydroxide (Mylanta Ii) 30 ml PO Q6H PRN PRN PRN Reason: INDIGESTION Docusate Sodium (Colace) 200 mg PO BID [facility] Last Admin: 12/22/19 08:52 Dose: 200 mg Documented by: Hydromorphone HCl (Dilaudid Inj) 0.5 - 1 mg IV Q2H PRN PRN PRN Reason: Pain Score 1-10 Piperacillin Sod/Tazobactam (Sod 3.375 gm/ Sodium Chloride) 50 mls @ 12.5 mls/hr IV Q8 [facility] Last Infusion: 12/22/19 09:19 Dose: Infused Documented by: Sodium Chloride () 250 mls @ 15 mls/hr IV .[id number] PRN PRN Reason: Saline Flush Last Infusion: 12/22/19 05:31 Dose: 0 mls/hr Documented by: Sodium Chloride () 250 mls @ 15 mls/hr IV .[id number] PRN PRN Reason: Additional IVPB Infusion Potassium Chloride/Sodium Chloride () 1,000 mls @ 100 mls/hr IV .Q10H [facility] Last Admin: 12/22/19 10:05 Dose: 100 mls/hr Documented by: Ondansetron HCl (Zofran) 4 mg IV Q8H PRN PRN PRN Reason: NAUSEA Oxycodone HCl (Oxyir) 5 - 10 mg PO Q4H PRN PRN PRN Reason: Pain Score 1-10 Last Admin: 12/21/19 07:26 Dose: 5 mg Documented by: Pantoprazole Sodium (Protonix) 40 mg PO DAILY [facility] Last Admin: 12/22/19 08:52 Dose: 40 mg Documented by: Sodium Chloride () 10 - 40 ml IV UD PRN PRN Reason: SALINE FLUSH Last Admin: 12/20/19 10:28 Dose: 10 ml Documented by: Medical Necessity - Tobacco Use Smoking Status: Never smoker Assessment/Plan All Active Problems (Last Reviewed 12/19/19 @ 13:[address] Mirza Jama MD) Acute appendicitis (Acute) Arthritis (Acute) PVC (premature ventricular contraction) (Acute) Cervical radicular pain (Acute) Diverticulitis (Acute) Postop day 3 status post ruptured appendix Waiting on labs this morning. Really do not think he is ready to get home just as of yet. We will more than likely keep him another day and hopefully be able to discharge him tomorrow.
[2019-12-22 10:46] LABS: Absolute Lymphocyte Count 1.64 X10^3/uL (0.83-4.51); Absolute Neutrophil Count 14.8 X10^3/uL (2.0-7.7); Basophil# 0.08 X10^3/uL; Basophil% 0.4 % (0-1); Eosinophil# 0.38 X10^3/uL; Eosinophils% 2.1 % (0-5); Hematocrit 45.4 % (40-54); Hemoglobin 14.9 g/dL (13.0-16.5); Lymphocyte # 1.64 X10^3/ul (4.0); Lymphocyte % 8.9 % (19-41); Mean Corp Hgb Conc 32.8 g/dL (32-36); Mean Corpuscular Hgb 29.4 pg (27.0-32.0); Mean Corpuscular Volume 89.7 fL (80-94); Mean Platelet Vol. 10.1 fl (6.2-12.0); Monocyte# 1.56 X10^3/uL; Monocyte% 8.4 % (0-10); NRBC Flagged by Analyzer 0 % (0-5); Neutrophil # 14.76 X10^3/uL (2.7-7.7); Neutrophil % 79.7 % (47-70); POSITIVE DIFFERENTIAL YES; Platelet Count 375 K/mm3 (150-450); RBC Distribution Width CV 14.6 % (11.6-14.6); RBC Distribution Width SD 47.8 fl (35.1-43.9); Red Blood Count 5.06 M/mm3 (4.6-6.2); White Blood Count 18.5 K/mm3 (4.4-11.0)
[2019-12-22 10:49] LABS: Differential Indicated SCAN CRITERIA MET
[2019-12-22 10:57] LABS: Anion Gap 6 (5-15); BUN 19 mg/dL (7-18); BUN/Creat Ratio 19.8 RATIO (10-20); Calcium,Total 8.2 mg/dL (8.5-10.1); Chloride 105 mmol/L (98-107); Creatinine, Serum 0.96 mg/dL (0.70-1.30); EST Glomerular Filtration Rate 84 mL/min (>60); Est Glom Filt Rate - Afr Amer 102 mL/min (>60); Estimated Creatinine Clearance 83.43 ml/min; Glucose 120 mg/dL (74-106); Potassium 3.5 mmol/L (3.5-5.1); Sodium Level 135 mmol/L (136-145)
--- NOTE | 2019-12-22 11:19 | NURSING ---
LATE ENTRY - ZIGGY DRAIN R ABD REMOVED PER .
[2019-12-22 11:27] LABS: Differential Comment SCANNED
[2019-12-22 13:50] VITALS: BP 135/71; PULSE 82; RESP 18; TEMP 36.9; O2SAT 96
[2019-12-22] MEDS: oxyCODONE 5 MG Tablet PO ×2 (18:15→22:14)
[2019-12-22 20:00] VITALS: BP 152/78; PULSE 87; RESP 18; TEMP 37.1; O2SAT 97
[2019-12-23 02:00] VITALS: BP 154/77; PULSE 79; RESP 18; TEMP 36.9; O2SAT 95
[2019-12-23] MEDS: oxyCODONE 5 MG Tablet PO ×3 (02:14→20:25)
[2019-12-23 08:00] VITALS: BP 136/71; PULSE 65; RESP 18; TEMP 36.4; O2SAT 98
[2019-12-23 08:05] LABS: Absolute Neutrophil Count 12.1 X10^3/uL (2.0-7.7); Basophil# 0.07 X10^3/uL; Basophil% 0.4 % (0-1); Eosinophil# 0.66 X10^3/uL; Eosinophils% 3.9 % (0-5); Hematocrit 42.1 % (40-54); Hemoglobin 13.8 g/dL (13.0-16.5); Lymphocyte % 14.2 % (19-41); Mean Corp Hgb Conc 32.8 g/dL (32-36); Mean Corpuscular Hgb 29.4 pg (27.0-32.0); Mean Corpuscular Volume 89.6 fL (80-94); Mean Platelet Vol. 10.2 fl (6.2-12.0); Monocyte# 1.52 X10^3/uL; NRBC Flagged by Analyzer 0 % (0-5); Neutrophil # 12.11 X10^3/uL (2.7-7.7); Neutrophil % 71.8 % (47-70); POSITIVE DIFFERENTIAL YES; Platelet Count 376 K/mm3 (150-450); RBC Distribution Width CV 14.5 % (11.6-14.6); RBC Distribution Width SD 47.9 fl (35.1-43.9); White Blood Count 16.9 K/mm3 (4.4-11.0)
[2019-12-23 08:24] LABS: Anion Gap 5 (5-15); BUN 17 mg/dL (7-18); BUN/Creat Ratio 19.9 RATIO (10-20); Calcium,Total 8.3 mg/dL (8.5-10.1); Chloride 108 mmol/L (98-107); Creatinine, Serum 0.85 mg/dL (0.70-1.30); EST Glomerular Filtration Rate 97 mL/min (>60); Est Glom Filt Rate - Afr Amer 117 mL/min (>60); Estimated Creatinine Clearance 94.23 ml/min; Glucose 91 mg/dL (74-106); Potassium 3.7 mmol/L (3.5-5.1); Sodium Level 138 mmol/L (136-145)
[2019-12-23 08:38] LABS: Differential Indicated SCAN CRITERIA MET
[2019-12-23] MEDS: Pantoprazole Sodium 40 MG Tablet PO (08:42)
[2019-12-23] MEDS: Docusate Sodium 100 MG Capsule 200 MG PO ×2 (08:43→21:36)
[2019-12-23 08:52] LABS: Differential Comment SCANNED
--- NOTE | 2019-12-23 10:44 | PN.SURG_ITS ---
Patient Problems: Active and Suspected Problems (Last Reviewed 12/19/19 @ 13:[address] Mirza Jama MD) Acute appendicitis (Acute) Subjective: Patient denies abdominal discomfort, fever, nausea, vomiting. He notes yesterday that his left knee filled with fluid. He notes having to take IV pain medication for the pain in the knee. He states he has a history of knee aspirations by Dr. Ovalles. He notes less pressure on the knee today and feels improved. His white count continues to be elevated. He was switched to a different antibiotic yesterday. He is urinating well and having bowel movements. - Physical Exam Vitals/I&O's: Vital Signs Temp Pulse Resp BP Pulse Ox 97.6 F L 65 18 136/71 H 98 12/23/19 08:00 12/23/19 08:00 12/23/19 08:00 12/23/19 08:00 12/23/19 08:00 Oxygen Flow Rate (L/min) 2 Oxygen Delivery Method Room Air Weight: 255 lb 1.197 oz Body Mass Index (BMI) 36.6 Intake and Output for Last 24 Hours 12/21/19 12/22/19 12/23/19 23:59 23:59 23:59 Intake Total 1787.50 / 1787.50 5309.91 / 5309.91 1164.25 / 1164.25 Output Total 1010 / 1010 740 / 740 400 / 400 Balance 777.50 / 777.50 4569.91 / 4569.91 764.25 / 764.25 General: Alert, Oriented x3, Cooperative Abdomen: Soft, Non Tender, Obese, - - Incisions c/d/i. No erythema or infection noted. ZIGGY drain site intact. No drainage noted. Extremities: - - Left knee- swollen, tender with palpation. No calf tenderness. Laboratory Results 12/22/19 10:34: WBC 18.5 H, RBC 5.06, Hgb 14.9, Hct 45.4, MCV 89.7, MCH 29.4, MCHC 32.8, RDW Std Deviation 47.8 H, RDW Coeff of Inga 14.6, Plt Count 375, MPV 10.1, Immature Gran % (Auto) 0.500, Neut % (Auto) 79.7 H, Lymph % (Auto) 8.9 L, [place] % (Auto) 8.4, Eos % (Auto) 2.1, Baso % (Auto) 0.4, Absolute Neuts (auto) 14.8 H, Absolute Lymphs (auto) 1.64, Nucleated RBC % 0, Differential Comment SCANNED, Diff Path Review [facility] 12/22/19 10:34: Sodium 135 L, Potassium 3.5, Chloride 105, Carbon Dioxide 24.0, Anion Gap 6, BUN 19 H, Creatinine 0.96, Estim Creat Clear Calc 83.43, Est GFR (MDRD) Af Amer 102, Est GFR (MDRD) Non-Af 84, BUN/Creatinine Ratio 19.8, Glucose 120 H, Calcium 8.2 L 12/23/19 07:35: WBC 16.9 H, RBC 4.70, Hgb 13.8, Hct 42.1, MCV 89.6, MCH 29.4, MCHC 32.8, RDW Std Deviation 47.9 H, RDW Coeff of Inga 14.5, Plt Count 376, MPV 10.2, Immature Gran % (Auto) 0.700, Neut % (Auto) 71.8 H, Lymph % (Auto) 14.2 L, [place] % (Auto) 9.0, Eos % (Auto) 3.9, Baso % (Auto) 0.4, Absolute Neuts (auto) 12.1 H, Absolute Lymphs (auto) 2.40, Nucleated RBC % 0, Differential Comment SCANNED, Diff Path Review [facility] 12/23/19 07:35: Sodium 138, Potassium 3.7, Chloride 108 H, Carbon Dioxide 25.0, Anion Gap 5, BUN 17, Creatinine 0.85, Estim Creat Clear Calc 94.23, Est GFR (MDRD) Af Amer 117, Est GFR (MDRD) Non-Af 97, BUN/Creatinine Ratio 19.9, Glucose 91, Calcium 8.3 L Current Medications Acetaminophen (Tylenol) 650 mg PO Q6H PRN PRN PRN Reason: Pain Score 1-10 Last Admin: 12/22/19 20:05 Dose: 650 mg Documented by: Al Hydroxide/Mg Hydroxide (Mylanta Ii) 30 ml PO Q6H PRN PRN PRN Reason: INDIGESTION Docusate Sodium (Colace) 200 mg PO BID [facility] Last Admin: 12/23/19 08:43 Dose: 200 mg Documented by: Hydromorphone HCl (Dilaudid Inj) 0.5 - 1 mg IV Q2H PRN PRN PRN Reason: Pain Score 1-10 Sodium Chloride () 250 mls @ 15 mls/hr IV .[id number] PRN PRN Reason: Saline Flush Last Infusion: 12/23/19 02:18 Dose: Infused Documented by: Sodium Chloride () 250 mls @ 15 mls/hr IV .[id number] PRN PRN Reason: Additional IVPB Infusion Potassium Chloride/Sodium Chloride () 1,000 mls @ 100 mls/hr IV .Q10H [facility] Last Admin: 12/23/19 05:03 Dose: 100 mls/hr Documented by: Meropenem 1 gm/ Sodium (Chloride) 120 mls @ 97 mls/hr IV Q8 [facility] Last Infusion: 12/23/19 06:51 Dose: Infused Documented by: Ondansetron HCl (Zofran) 4 mg IV Q8H PRN PRN PRN Reason: NAUSEA Oxycodone HCl (Oxyir) 5 - 10 mg PO Q4H PRN PRN PRN Reason: Pain Score 1-10 Last Admin: 12/23/19 02:14 Dose: 10 mg Documented by: Pantoprazole Sodium (Protonix) 40 mg PO DAILY [facility] Last Admin: 12/23/19 08:42 Dose: 40 mg Documented by: Sodium Chloride () 10 - 40 ml IV UD PRN PRN Reason: SALINE FLUSH Last Admin: 12/20/19 10:28 Dose: 10 ml Documented by: Medical Necessity - Tobacco Use Smoking Status: Never smoker Assessment/Plan All Active Problems (Last Reviewed 12/19/19 @ 13:[address] Mirza Jama MD) Acute appendicitis (Acute) Arthritis (Acute) PVC (premature ventricular contraction) (Acute) Cervical radicular pain (Acute) Diverticulitis (Acute) I am following this patient in conjunction with Dr. Jama - Will discuss ortho referral inpatient versus outpatient - Continued increase in WBC - ?Infectious disease consult - Probable discharge tomorrow with oral antibiotics Inpatient E&M: 70768 Subs Hosp L1 - No charge/post-op
[2019-12-23 12:05] LABS: Pathologist Review Reviewed
[2019-12-23 14:00] VITALS: BP 152/71; PULSE 82; RESP 18; TEMP 37.4; O2SAT 96
--- NOTE | 2019-12-23 14:11 | PCM.HP.ID ---
Problem List (1) Acute appendicitis Status: Acute Qualifiers: Acute appendicitis type: with localized peritonitis Appendicitis gangrene presence: without gangrene Appendicitis perforation presence: without perforation Appendicitis abscess presence: without abscess Qualified Code(s): K35.30 - Acute appendicitis with localized peritonitis, without perforation or gangrene Reason for Consult: leukocytosis Consulted by: Dr. Jama History of Present Illness: The patient is a 59 year old M, presented 12/19/19 with several days of progressive RLQ pain. Pain became severe, sent to hospital, taken to OR 12/19/[address] Jama for lap appy for appendicitis. Since surgery, feeling ok, no fever, had 2 BM yesterday. Minimal abd pain. Does have L knee swelling, pain which has happened in the past and required aspiration sometime steroids. No n/v/d. No cough or SOB. Abd drain removed yesterday. No issues with incisions. Son recently with prolonged hospital stay for prosthetic valve endocarditis complicated by cdiff and stroke. Pt slept in hospital chair for a month. Due to persistent leukocytosis, zosyn changed to meropenem 12/21. Full ROS performed and neg except as noted above. - Medical History Surgical History: reviewed Allergies/Adverse Reactions: Allergies No Known Allergies Allergy (Verified 12/19/19 13:52) Home Medications: Ambulatory Orders Medication Instructions Recorded Loratadine 10 mg PO DAILY 04/23/19 Naproxen Sodium [Aleve] 220 mg PO DAILY 04/23/19 - Social History Tobacco Use: non-smoker Vital Signs Temp Pulse Resp BP Pulse Ox 97.6 F L 65 18 136/71 H 98 12/23/19 08:00 12/23/19 08:00 12/23/19 08:00 12/23/19 08:00 12/23/19 08:00 Oxygen Flow Rate (L/min) 2 Oxygen Delivery Method Room Air Weight: 115.7 kg Body Mass Index (BMI) 36.6 Laboratory Tests Past 24 Hrs 12/22/19 12/23/19 12/23/19 10:34 07:35 07:35 WBC 16.9 H RBC 4.70 Hgb 13.8 Hct 42.1 MCV 89.6 MCH 29.4 MCHC 32.8 RDW Std Deviation 47.9 H RDW Coeff of Inga 14.5 Plt Count 376 MPV 10.2 Immature Gran % (Auto) 0.700 Neut % (Auto) 71.8 H Lymph % (Auto) 14.2 L [place] % (Auto) 9.0 Eos % (Auto) 3.9 Baso % (Auto) 0.4 Absolute Neuts (auto) 12.1 H Absolute Lymphs (auto) 2.40 Nucleated RBC % 0 Differential Comment SCANNED Diff Path Review Reviewed July foll Sodium 138 Potassium 3.7 Chloride 108 H Carbon Dioxide 25.0 Anion Gap 5 BUN 17 Creatinine 0.85 Estim Creat Clear Calc 94.23 Est GFR (MDRD) Af Amer 117 Est GFR (MDRD) Non-Af 97 BUN/Creatinine Ratio 19.9 Glucose 91 Calcium 8.3 L - Other Studies Radiology: [] reviewed Other Studies: [] Route of nutrition/ use of supplements: [] Nutritional Intake: [] IV Site: [] Leos Catheter: [] - Physical Exam General: Alert, Oriented x3, Cooperative, No apparent distress HEENT: Atraumatic, PERRLA, EOMI Neck: Supple, No Nodes Lungs: Clear to auscultation, Normal air movement Cardiovascular: Regular rate, Regular Rhythm, No murmurs Abdomen: Soft, Non Tender, Non-Distended Extremities: No edema Skin: No rashes, Incision - abd incisions with no redness or drainage IV Site: Peripheral, without redness Musculoskeletal: - - L knee with some warmth, swelling, tenderness Neurological: Cranial nerves II-XII grossly intact - Assessment/Plan Antibiotics: [] Assessment/Plan: [] Active and Suspected Problems (Last Reviewed 12/19/19 @ 13:[address] Mirza Jama MD) Acute appendicitis (Acute) Now s/p OR lap appy 12/19/[address] Jama. Has had persistent leukocytosis since the surgery. CT 12/19 showed no residual abscess or inflammation. Zosyn changed to meropenem 12/21. Wbc slightly improved today. Pt clinically stable and feeling ok ever since the surgery. It is hard to tell if the meropenem is making a difference or not. Overall low suspicion of residual infection in his abd at this point but difficult to rule out completely. Wbc may be related to his resolving abd infection, trauma/stress from the surgery, and pain/inflammation from his knee. If knee worsens, would get ortho eval. If wbc continues to improve and he is still feeling well overall, agree with plan for home with po abx in next 1-2 days, likely cipro/flagyl. Will follow, thank you, d/w Dr. Jama yesterday.
[2019-12-23] MEDS: Acetaminophen 325 MG Tablet 650 MG PO (14:15)
--- NOTE | 2019-12-23 15:32 | RAD_ITS ---
STUDY: X-RAY - RIGHT KNEE REASON FOR EXAM: Male, 59 years old. KNEE PAIN TECHNIQUE: 3 view(s) of the knee. COMPARISON: 06/17/2013 FINDINGS: Normal visualized distal femur. Normal visualized proximal tibia and fibula. Normal proximal tibiofibular articulation. Degenerative spurring or increasing narrowing of the medial femorotibial compartment. Degenerative spurring at the lateral femorotibial compartment. Degenerative spurring and narrowing at the patellofemoral articulation. Moderate effusion with calcifications. The soft tissue structures are unremarkable. RAD/Knee 3 Views IMPRESSION: Increasing degenerative changes of the knee. Moderate effusion. Electronically Signed: Alvaro Lowery DO at 23:16 EDT Tel [phone], Service support ,
--- NOTE | 2019-12-23 15:35 | RAD_ITS ---
STUDY: X-RAY - LEFT KNEE REASON FOR EXAM: Male, 59 years old. KNEE PAIN TECHNIQUE: 3 view(s) of the knee. COMPARISON: 06/17/2013 FINDINGS: Normal visualized distal femur. Normal visualized proximal tibia and fibula. Normal proximal tibiofibular articulation. Degenerative spurring with increasing narrowing at the medial femorotibial compartment. Degenerative spurring with increasing narrowing lateral femorotibial compartment. The lateral shifting of the tibia is noted in relation to the femur. Degenerative spurring at the patellofemoral articulation. Large effusion is noted. The soft tissue structures are unremarkable. RAD/Knee 3 Views IMPRESSION: Degenerative change with increasing joint space narrowing. Large effusion of the knee. Electronically Signed: Alvaro Lowery DO at 16:09 EDT Tel [phone], Service support ,
--- NOTE | 2019-12-23 17:11 | PCM.CONS.GEN ---
Reason for Consult Date of Consultation: 12/23/19 Reason for Consultation: b/l knee pain History of Present Illness: The patient is a 59 year old M severe bilateral knee DJD and obesity recently admitted for ruptured appendicitis with elevated white blood cell count patient states his knee symptoms have not changed acutely recently, pain has been getting severe again it has not changed in quality. Has some limitations with ambulation and with range of motion secondary to pain which is ongoing Past Medical History Medical History: Medical History (Last Reviewed 12/19/19 @ 13:[address] Mirza Jama MD) Arthritis (Acute) M19.90 PVC (premature ventricular contraction) (Acute) I49.3 Cervical radicular pain (Acute) M54.12 Diverticulitis (Acute) K57.92 Allergies No Known Allergies Allergy (Verified 12/19/19 13:52) Home Medications: Ambulatory Orders Medication Instructions Recorded Loratadine 10 mg PO DAILY 04/23/19 Naproxen Sodium [Aleve] 220 mg PO DAILY 04/23/19 Surgical History: Surgical History (Last Reviewed 12/19/19 @ 13:[address] Mirza Jama MD) History of arthroscopy of both knees Z98.890 Surgical History: no surgical history, - - History of bilateral knee arthroscopy Smoking Status: Never smoker Patient Problems: Active and Suspected Problems (Last Reviewed 12/19/19 @ 13:[address] Mirza Jama MD) Acute appendicitis (Acute) - Physical Exam Vitals/I&O's: Vital Signs Temp Pulse Resp BP Pulse Ox 99.4 F H 82 18 152/71 H 96 12/23/19 14:00 12/23/19 14:00 12/23/19 14:00 12/23/19 14:00 12/23/19 14:00 Oxygen Flow Rate (L/min) 2 Oxygen Delivery Method Room Air Weight: 255 lb 1.197 oz Body Mass Index (BMI) 36.6 Intake and Output for Last 24 Hours 12/21/19 12/22/19 12/23/19 23:59 23:59 23:59 Intake Total 1787.50 / 1787.50 5309.91 / 5309.91 2284.25 / 2284.25 Output Total 1010 / 1010 740 / 740 400 / 400 Balance 777.50 / 777.50 4569.91 / 4569.91 1884.25 / 1884.25 General: Alert, Oriented x3, Cooperative, No apparent distress Extremities: - - Bilateral knee joint effusions there is no erythema or increased warmth he does have a limited range of motion of the knees however he does have a active arc of motion about 30 degrees without pain. Straight or collateral instability no open wounds no sign of cellulitis or abscess Laboratory Results 12/22/19 10:34: Diff Path Review Reviewed 12/23/19 07:35: WBC 16.9 H, RBC 4.70, Hgb 13.8, Hct 42.1, MCV 89.6, MCH 29.4, MCHC 32.8, RDW Std Deviation 47.9 H, RDW Coeff of Inga 14.5, Plt Count 376, MPV 10.2, Immature Gran % (Auto) 0.700, Neut % (Auto) 71.8 H, Lymph % (Auto) 14.2 L, [place] % (Auto) 9.0, Eos % (Auto) 3.9, Baso % (Auto) 0.4, Absolute Neuts (auto) 12.1 H, Absolute Lymphs (auto) 2.40, Nucleated RBC % 0, Differential Comment SCANNED, Diff Path Review May 12/23/19 07:35: Sodium 138, Potassium 3.7, Chloride 108 H, Carbon Dioxide 25.0, Anion Gap 5, BUN 17, Creatinine 0.85, Estim Creat Clear Calc 94.23, Est GFR (MDRD) Af Amer 117, Est GFR (MDRD) Non-Af 97, BUN/Creatinine Ratio 19.9, Glucose 91, Calcium 8.3 L Current Medications Acetaminophen (Tylenol) 650 mg PO Q6H PRN PRN PRN Reason: Pain Score 1-10 Last Admin: 12/23/19 14:15 Dose: 650 mg Documented by: Al Hydroxide/Mg Hydroxide (Mylanta Ii) 30 ml PO Q6H PRN PRN PRN Reason: INDIGESTION Docusate Sodium (Colace) 200 mg PO BID [facility] Last Admin: 12/23/19 08:43 Dose: 200 mg Documented by: Hydromorphone HCl (Dilaudid Inj) 0.5 - 1 mg IV Q2H PRN PRN PRN Reason: Pain Score 1-10 Sodium Chloride () 250 mls @ 15 mls/hr IV .[id number] PRN PRN Reason: Saline Flush Last Infusion: 12/23/19 02:18 Dose: Infused Documented by: Sodium Chloride () 250 mls @ 15 mls/hr IV .[id number] PRN PRN Reason: Additional IVPB Infusion Potassium Chloride/Sodium Chloride () 1,000 mls @ 100 mls/hr IV .Q10H [facility] Last Admin: 12/23/19 14:31 Dose: 100 mls/hr Documented by: Meropenem 1 gm/ Sodium (Chloride) 120 mls @ 97 mls/hr IV Q8 [facility] Last Infusion: 12/23/19 15:30 Dose: Infused Documented by: Ondansetron HCl (Zofran) 4 mg IV Q8H PRN PRN PRN Reason: NAUSEA Oxycodone HCl (Oxyir) 5 - 10 mg PO Q4H PRN PRN PRN Reason: Pain Score 1-10 Last Admin: 12/23/19 16:24 Dose: 10 mg Documented by: Pantoprazole Sodium (Protonix) 40 mg PO DAILY [facility] Last Admin: 12/23/19 08:42 Dose: 40 mg Documented by: Sodium Chloride () 10 - 40 ml IV UD PRN PRN Reason: SALINE FLUSH Last Admin: 12/20/19 10:28 Dose: 10 ml Documented by: Assessment/Plan All Active Problems (Last Reviewed 12/19/19 @ 13:[address] Mirza Jama MD) Acute appendicitis (Acute) Arthritis (Acute) PVC (premature ventricular contraction) (Acute) Cervical radicular pain (Acute) Diverticulitis (Acute) b/l knee severe tricompartmental knee with varus deformity knee effusions b/l Aspirated 165 cc of slightly cloudy yellow synovial fluid left knee and 90cc right knee. Does not have appearance or odor of infection, consistant with arthritic flare. fluid sent for synovial fluid analysis/cx including crystals in light if his recent elevated WBC however low suspicion of infection. bonnie wraps/ice applied.
[2019-12-23 17:26] LABS: Pathologist Comment May follow
[2019-12-23 17:31] LABS: Pathologist Comment May follow
[2019-12-23 17:56] LABS: Synovial Fld Mononuclear WBC % 7.8 %; Synovial Fld Polynuclear WBC % 92.2 %
[2019-12-23 18:10] LABS: Synovial Fld Mononuclear WBC % 16.5 %; Synovial Fld Polynuclear WBC # 2.788 10^3/uL; Synovial Fld Polynuclear WBC % 83.5 %
[2019-12-23 18:58] LABS: RBC /Synovial Fluid 0.003 10^6/uL (0)
[2019-12-23 20:00] VITALS: BP 139/73; PULSE 87; RESP 18; TEMP 37.3; O2SAT 96
[2019-12-23 20:24] LABS: Lymph 6 %; Neutrophil 92 % (0-25); Other Cell /Synovial Fluid 2 %
[2019-12-23 20:25] LABS: Lymph 1 %; Monocyte /Synovial Fluid 8 %; Neutrophil 88 % (0-25); Other Cell /Synovial Fluid 3 %
[2019-12-23 20:26] LABS: AUTO B FLUID DILUENT BKGD CT WBC <0.1 RBC <0.01 (W<.1,R<.01); Appearance /Synovial Fluid Cloudy (CLEAR); Color / Synovial Fluid Yellow (Pale Yellow); Source / Synovial Fluid LEFT KNEE; Source- Body Fluid SYNOVIAL; Synovial Fld Mononuclear WBC # 1.072 10^3/ul
[2019-12-23 20:27] LABS: AUTO B FLUID DILUENT BKGD CT WBC <0.1 RBC <0.01 (W<.1,R<.01); Appearance /Synovial Fluid Sl Cl (CLEAR); Color / Synovial Fluid Yellow (Pale Yellow); Source / Synovial Fluid RIGHT KNEE; Source- Body Fluid SYNOVIAL
[2019-12-23 20:27] LABS: Body Fluid QC Type(s) BF1Q,BF2Q
[2019-12-23 20:28] LABS: Body Fluid QC Type(s) BF1Q,BF2Q; RBC /Synovial Fluid 79 /mm3 (0)
[2019-12-24 02:00] VITALS: BP 152/86; PULSE 83; RESP 18; TEMP 36.4; O2SAT 97
[2019-12-24] MEDS: Acetaminophen 325 MG Tablet 650 MG PO ×2 (02:35→10:21)
[2019-12-24 06:55] LABS: Absolute Neutrophil Count 14.1 X10^3/uL (2.0-7.7); Basophil# 0.06 X10^3/uL; Basophil% 0.3 % (0-1); Eosinophil# 0.43 X10^3/uL; Eosinophils% 2.4 % (0-5); Hematocrit 42.9 % (40-54); Lymphocyte % 10.7 % (19-41); Mean Corp Hgb Conc 32.6 g/dL (32-36); Mean Corpuscular Hgb 29.1 pg (27.0-32.0); Mean Corpuscular Volume 89.2 fL (80-94); Mean Platelet Vol. 9.8 fl (6.2-12.0); Monocyte# 1.23 X10^3/uL; Monocyte% 6.9 % (0-10); NRBC Flagged by Analyzer 0 % (0-5); Neutrophil # 14.07 X10^3/uL (2.7-7.7); Neutrophil % 78.9 % (47-70); Platelet Count 417 K/mm3 (150-450); RBC Distribution Width CV 14.5 % (11.6-14.6); RBC Distribution Width SD 47.6 fl (35.1-43.9); Red Blood Count 4.81 M/mm3 (4.6-6.2); White Blood Count 17.8 K/mm3 (4.4-11.0)
[2019-12-24 07:39] LABS: Anion Gap 7 (5-15); BUN 13 mg/dL (7-18); BUN/Creat Ratio 15.6 RATIO (10-20); Calcium,Total 8.4 mg/dL (8.5-10.1); Chloride 102 mmol/L (98-107); Creatinine, Serum 0.83 mg/dL (0.70-1.30); EST Glomerular Filtration Rate 100 mL/min (>60); Est Glom Filt Rate - Afr Amer 121 mL/min (>60); Glucose 99 mg/dL (74-106); Potassium 3.8 mmol/L (3.5-5.1); Sodium Level 134 mmol/L (136-145)
[2019-12-24 08:00] VITALS: BP 139/74; PULSE 87; RESP 18; TEMP 36.8; O2SAT 97
--- NOTE | 2019-12-24 10:17 | PN.ID_ITS ---
Patient Problems: Active and Suspected Problems (Last Reviewed 12/19/19 @ 13:[address] Mirza Jama MD) Acute appendicitis (Acute) Subjective: Knee tapped, no fever, no abd pain - Physical Exam Vitals/I&O's: Vital Signs Temp Pulse Resp BP Pulse Ox 97.5 F L 83 18 152/86 H 97 12/24/19 02:00 12/24/19 02:00 12/24/19 02:00 12/24/19 02:00 12/24/19 02:00 Oxygen Flow Rate (L/min) 2 Oxygen Delivery Method Room Air Weight: 115.7 kg Body Mass Index (BMI) 36.6 Intake and Output for Last 24 Hours 12/22/19 12/23/19 12/24/19 23:59 23:59 23:59 Intake Total 5309.91 / 5309.91 2284.25 / 2284.25 2810 / 2810 Output Total 740 / 740 400 / 400 1000 / 1000 Balance 4569.91 / 4569.91 1884.25 / 1884.25 1810 / 1810 General: Alert, Cooperative, No apparent distress Lungs: Clear to auscultation, Normal air movement Cardiovascular: Regular rate, Regular Rhythm Abdomen: Soft, Non Tender, Non-Distended Skin: No rashes Musculoskeletal: - - knee swelling Microbiology Past 72 Hours 12/23/19 17:08 Fluid - Synovial (joint) Gram Stain - Final 12/23/19 17:00 Fluid - Synovial (joint) Gram Stain - Final Laboratory Results 12/22/19 10:34: Diff Path Review Reviewed 12/23/19 17:00: Synovial Glucose Pending 12/23/19 17:00: Fluid Crystals SEE PATH REV, Fluid Crystal Source SYNOVIAL, Fl Crystal Path Review Will follow, Synovial Source RIGHT KNEE, Synovial Color Yellow, Synovial Appearance Sl Cl, Synovial WBC 3.3380 H, Synovial RBC 79 H, Synovial Tot Cell Ct 3.3500 H, Synov Polynuclear WBCs 2.788, Synov Mononuclear WBCs 0.550, Synovial Neutrophils 88 H, Synovial Lymphocytes 1, Synovial Monocytes 8, Synovial Other Cells 3, Synovial Polynuclear % 83.5, Synovial Mononuclear % 16.5, Synovial Path Comment May follow 12/23/19 17:00: Synovial Glucose Pending 12/23/19 17:05: Fluid Crystals SEE PATH REV, Fluid Crystal Source SYNOVIAL, Fl Crystal Path Review Will follow, Synovial Source LEFT KNEE, Synovial Color Yellow, Synovial Appearance Cloudy, Synovial WBC 13.7160 H, Synovial RBC 0.003 H , Synovial Tot Cell Ct 13.7440 H, Synov Polynuclear WBCs 12.644, Synov Mononuclear WBCs 1.072, Synovial Neutrophils 92 H, Synovial Lymphocytes 6, Synovial Other Cells 2, Synovial Polynuclear % 92.2, Synovial Mononuclear % 7.8, Synovial Path Comment May follow 12/24/19 06:40: WBC 17.8 H, RBC 4.81, Hgb 14.0, Hct 42.9, MCV 89.2, MCH 29.1, MCHC 32.6, RDW Std Deviation 47.6 H, RDW Coeff of Inga 14.5, Plt Count 417, MPV 9.8, Immature Gran % (Auto) 0.800, Neut % (Auto) 78.9 H, Lymph % (Auto) 10.7 L, [place] % (Auto) 6.9, Eos % (Auto) 2.4, Baso % (Auto) 0.3, Absolute Neuts (auto) 14.1 H, Absolute Lymphs (auto) 1.90, Nucleated RBC % 0 12/24/19 06:40: Sodium 134 L, Potassium 3.8, Chloride 102, Carbon Dioxide 25.0, Anion Gap 7, BUN 13, Creatinine 0.83, Estim Creat Clear Calc 96.50, Est GFR (MDRD) Af Amer 121, Est GFR (MDRD) Non-Af 100, BUN/Creatinine Ratio 15.6, Glucose 99, Calcium 8.4 L Current Medications Acetaminophen (Tylenol) 650 mg PO Q6H PRN PRN PRN Reason: Pain Score 1-10 Last Admin: 12/24/19 02:35 Dose: 650 mg Documented by: Al Hydroxide/Mg Hydroxide (Mylanta Ii) 30 ml PO Q6H PRN PRN PRN Reason: INDIGESTION Docusate Sodium (Colace) 200 mg PO BID [facility] Last Admin: 12/23/19 21:36 Dose: 200 mg Documented by: Hydromorphone HCl (Dilaudid Inj) 0.5 - 1 mg IV Q2H PRN PRN PRN Reason: Pain Score 1-10 Sodium Chloride () 250 mls @ 15 mls/hr IV .[id number] PRN PRN Reason: Saline Flush Last Infusion: 12/23/19 02:18 Dose: Infused Documented by: Sodium Chloride () 250 mls @ 15 mls/hr IV .[id number] PRN PRN Reason: Additional IVPB Infusion Potassium Chloride/Sodium Chloride () 1,000 mls @ 100 mls/hr IV .Q10H [facility] Last Infusion: 12/24/19 10:13 Dose: Infused Documented by: Meropenem 1 gm/ Sodium (Chloride) 120 mls @ 97 mls/hr IV Q8 [facility] Last Infusion: 12/24/19 09:36 Dose: Infused Documented by: Ondansetron HCl (Zofran) 4 mg IV Q8H PRN PRN PRN Reason: NAUSEA Oxycodone HCl (Oxyir) 5 - 10 mg PO Q4H PRN PRN PRN Reason: Pain Score 1-10 Last Admin: 12/23/19 20:25 Dose: 10 mg Documented by: Pantoprazole Sodium (Protonix) 40 mg PO DAILY [facility] Last Admin: 12/23/19 08:42 Dose: 40 mg Documented by: Sodium Chloride () 10 - 40 ml IV UD PRN PRN Reason: SALINE FLUSH Last Admin: 12/20/19 10:28 Dose: 10 ml Documented by: Medical Necessity - Tobacco Use Smoking Status: Never smoker Route of nutrition/ use of supplements: [] Nutritional Intake: [] IV Site: [] Leos Catheter: [] - Assessment/Plan Antibiotics: [] Assessment/Plan: [] Active and Suspected Problems (Last Reviewed 12/19/19 @ 13:[address] Mirza Jama MD) Acute appendicitis (Acute) Now s/p OR lap appy 12/19/[address] Jama. Has had persistent leukocytosis since the surgery. CT 12/19 showed no residual abscess or inflammation. Zosyn changed to meropenem 12/21. Wbc slightly worse today. Pt clinically stable and feeling ok ever since the surgery. It is hard to tell if the meropenem is making a difference or not. Overall low suspicion of residual infection in his abd at this point but difficult to rule out completely. Wbc may be related to his resolving abd infection, trauma/stress from the surgery, and pain/inflammation from his knee. Ortho has seen, aspiration done which showed purulence but neg gram stain. Ok for home from ID perspective with short course po cipro/flagyl. Will follow, d/w primary team
[2019-12-24] MEDS: Docusate Sodium 100 MG Capsule 200 MG PO (10:19)
[2019-12-24] MEDS: Pantoprazole Sodium 40 MG Tablet PO (10:19)
--- NOTE | 2019-12-24 10:33 | DCINST_ITS ---
Discharge Diet: Light diet - advance as tolerated Discharge Activity: May not drive while taking narcotic pain medications. May shower in (days): 1 Call your doctor if your incision/area has: Continuous Slow Oozing, Sudden Increased Bleeding, Increased Pain/ Swelling, Increased Redness, Foul Smelling Discharge Call your doctor if you observe: Fever of 101 or Higher Suture Line Care: Avoid Pulling/Pushing, Avoid Pinching/Bending Cleanse incision/area with: Soap & Water Additional Dressing/Incision Instructions:: Keep dressing clean and dry. Remove dressing in 2 days. Leave steri strips for 1 week. May protect with a gauze bandaid. Medications to take at Discharge Loratadine 10 mg PO DAILY 04/23/19 Naproxen Sodium [Aleve] 220 mg PO DAILY 04/23/19 Ciprofloxacin [Cipro] 500 mg PO BID #6 tab 12/24/19 Metronidazole [Flagyl] 500 mg PO TID #9 tab 12/24/19 Oxycodone [Oxyir] 10 mg PO Q6H PRN PRN 3 Days #18 tab 12/24/19 Allergies/Adverse Reactions: Allergies No Known Allergies Allergy (Verified 12/19/19 13:52) The following prescriptions were given: Ciprofloxacin [Cipro] 500 mg PO BID #6 tab Transmission Status: Received by [facility] Metronidazole [Flagyl] 500 mg PO TID #9 tab Transmission Status: Received by [facility] Oxycodone [Oxyir] 10 mg PO Q6H PRN PRN 3 Days #18 tab PRN Reason: Pain Score 1-10 Transmission Status: Received by [facility] Primary Care Physician: Pawel Juares MD [Primary Care Provider] - Test Results: Test results from this visit will be discussed in further detail at your follow- up appointment, if applicable. Please Follow Up With: Natalie Craven PA-C - [phone] When: 10 days Proposed Discharge Date: 12/24/19
--- NOTE | 2019-12-24 10:35 | DS.PCM_ITS ---
Discharge Date and Diagnosis - Problem List Patient Problems: Active and Suspected Problems (Last Reviewed 12/19/19 @ 13:[address] Mirza Jama MD) Acute appendicitis (Acute) Date of Admission: 12/19/19 Date of Discharge: 12/24/19 - Primary Discharge Diagnosis Acute Problems: Active Problems (Last Reviewed 12/19/19 @ 13:[address] Mirza Jama MD) Acute appendicitis (Acute) Hospital Course and Treatment Operations: appendectomy Summary of Care Provided: The patient is a 59 year old M who presented with severe abdominal pain, positive McBurney's point. Dr. Jama performed a laparoscopic appendectomy with ZIGGY drain placement on 12/19/19. Patient tolerated the procedure well. Patient had a ruptured appendicitis. CT scan of the abdomen/pelvis was obtained POD #1 which demonstrated no residual fluid/abscess collection. Patient had ZIGGY drain removed on 12/21. Patient was noted to have elevated WBC and was switched form Zosyn to Meropenem on Monday. ID was consulted and recommended continued oral antibiotics at discharge. Patient also noted swelling of left knee with a history of knee aspirations. Ortho was consulted and performed bilateral knee aspirations on 12/23/19. Purulent fluid was noted and sent for analysis. Upon discharge, patient denies abdominal pain, nausea, vomiting, fever. He notes good appetite. Urinating well and having normal bowel movements. Patient notes soreness of knees bilaterally. Patient will be sent home on oral antibiotics and small course of pain medication. Patient Problems: Active and Suspected Problems (Last Reviewed 12/19/19 @ 13:[address] Mirza Jama MD) Acute appendicitis (Acute) - Physical Exam Vitals/I&O's: Vital Signs Temp Pulse Resp BP Pulse Ox 98.2 F 87 18 139/74 H 97 12/24/19 08:00 12/24/19 08:00 12/24/19 08:00 12/24/19 08:00 12/24/19 08:00 Oxygen Flow Rate (L/min) 2 Oxygen Delivery Method Room Air Weight: 255 lb 1.197 oz Body Mass Index (BMI) 36.6 Intake and Output for Last 24 Hours 12/22/19 12/23/19 12/24/19 23:59 23:59 23:59 Intake Total 5309.91 / 5309.91 2284.25 / 2284.25 2810 / 2810 Output Total 740 / 740 400 / 400 1000 / 1000 Balance 4569.91 / 4569.91 1884.25 / 1884.25 1810 / 1810 General: Alert, Oriented x3, Cooperative Abdomen: Bowel Sounds Present, Soft, Non Tender, Obese, - - Incisions c/d/i. No erythema or infection noted. Microbiology Past 72 Hours 12/23/19 17:08 Fluid - Synovial (joint) Gram Stain - Final 12/23/19 17:00 Fluid - Synovial (joint) Gram Stain - Final Laboratory Results 12/22/19 10:34: Diff Path Review Reviewed 12/23/19 17:00: Synovial Glucose Pending 12/23/19 17:00: Fluid Crystals SEE PATH REV, Fluid Crystal Source SYNOVIAL, Fl Crystal Path Review Will follow, Synovial Source RIGHT KNEE, Synovial Color Yellow, Synovial Appearance Sl Cl, Synovial WBC 3.3380 H, Synovial RBC 79 H, Synovial Tot Cell Ct 3.3500 H, Synov Polynuclear WBCs 2.788, Synov Mononuclear WBCs 0.550, Synovial Neutrophils 88 H, Synovial Lymphocytes 1, Synovial Monocytes 8, Synovial Other Cells 3, Synovial Polynuclear % 83.5, Synovial Mononuclear % 16.5, Synovial Path Comment May follow 12/23/19 17:00: Synovial Glucose Pending 12/23/19 17:05: Fluid Crystals SEE PATH REV, Fluid Crystal Source SYNOVIAL, Fl Crystal Path Review Will follow, Synovial Source LEFT KNEE, Synovial Color Yellow, Synovial Appearance Cloudy, Synovial WBC 13.7160 H, Synovial RBC 0.003 H , Synovial Tot Cell Ct 13.7440 H, Synov Polynuclear WBCs 12.644, Synov Mononuclear WBCs 1.072, Synovial Neutrophils 92 H, Synovial Lymphocytes 6, Synovial Other Cells 2, Synovial Polynuclear % 92.2, Synovial Mononuclear % 7.8, Synovial Path Comment May follow 12/24/19 06:40: WBC 17.8 H, RBC 4.81, Hgb 14.0, Hct 42.9, MCV 89.2, MCH 29.1, MCHC 32.6, RDW Std Deviation 47.6 H, RDW Coeff of Inga 14.5, Plt Count 417, MPV 9.8, Immature Gran % (Auto) 0.800, Neut % (Auto) 78.9 H, Lymph % (Auto) 10.7 L, [place] % (Auto) 6.9, Eos % (Auto) 2.4, Baso % (Auto) 0.3, Absolute Neuts (auto) 14.1 H, Absolute Lymphs (auto) 1.90, Nucleated RBC % 0 12/24/19 06:40: Sodium 134 L, Potassium 3.8, Chloride 102, Carbon Dioxide 25.0, Anion Gap 7, BUN 13, Creatinine 0.83, Estim Creat Clear Calc 96.50, Est GFR (MDRD) Af Amer 121, Est GFR (MDRD) Non-Af 100, BUN/Creatinine Ratio 15.6, Glucose 99, Calcium 8.4 L Current Medications Acetaminophen (Tylenol) 650 mg PO Q6H PRN PRN PRN Reason: Pain Score 1-10 Last Admin: 12/24/19 10:21 Dose: 650 mg Documented by: Al Hydroxide/Mg Hydroxide (Mylanta Ii) 30 ml PO Q6H PRN PRN PRN Reason: INDIGESTION Docusate Sodium (Colace) 200 mg PO BID [facility] Last Admin: 12/24/19 10:19 Dose: 200 mg Documented by: Hydromorphone HCl (Dilaudid Inj) 0.5 - 1 mg IV Q2H PRN PRN PRN Reason: Pain Score 1-10 Sodium Chloride () 250 mls @ 15 mls/hr IV .[id number] PRN PRN Reason: Saline Flush Last Infusion: 12/23/19 02:18 Dose: Infused Documented by: Sodium Chloride () 250 mls @ 15 mls/hr IV .[id number] PRN PRN Reason: Additional IVPB Infusion Potassium Chloride/Sodium Chloride () 1,000 mls @ 100 mls/hr IV .Q10H [facility] Last Infusion: 12/24/19 10:13 Dose: Infused Documented by: Meropenem 1 gm/ Sodium (Chloride) 120 mls @ 97 mls/hr IV Q8 [facility] Last Infusion: 12/24/19 09:36 Dose: Infused Documented by: Ondansetron HCl (Zofran) 4 mg IV Q8H PRN PRN PRN Reason: NAUSEA Oxycodone HCl (Oxyir) 5 - 10 mg PO Q4H PRN PRN PRN Reason: Pain Score 1-10 Last Admin: 12/23/19 20:25 Dose: 10 mg Documented by: Pantoprazole Sodium (Protonix) 40 mg PO DAILY [facility] Last Admin: 12/24/19 10:19 Dose: 40 mg Documented by: Sodium Chloride () 10 - 40 ml IV UD PRN PRN Reason: SALINE FLUSH Last Admin: 12/20/19 10:28 Dose: 10 ml Documented by: Discharge Diet: Light diet - advance as tolerated Discharge Activity: May not drive while taking narcotic pain medications. May shower in (days): 1 Call your doctor if your incision/area has: Continuous Slow Oozing, Sudden Increased Bleeding, Increased Pain/ Swelling, Increased Redness, Foul Smelling Discharge Call your doctor if you observe: Fever of 101 or Higher Suture Line Care: Avoid Pulling/Pushing, Avoid Pinching/Bending Cleanse incision/area with: Soap & Water Additional Dressing/Incision Instructions:: Keep dressing clean and dry. Remove dressing in 2 days. Leave steri strips for 1 week. May protect with a gauze bandaid. Home Medications: Medications to take at Discharge Loratadine 10 mg PO DAILY 04/23/19 Naproxen Sodium [Aleve] 220 mg PO DAILY 04/23/19 Ciprofloxacin [Cipro] 500 mg PO BID #6 tab 12/24/19 Metronidazole [Flagyl] 500 mg PO TID #9 tab 12/24/19 Oxycodone [Oxyir] 10 mg PO Q6H PRN PRN 3 Days #18 tab 12/24/19 Following Prescriptions Were Given to Patient: Ciprofloxacin [Cipro] 500 mg PO BID #6 tab Transmission Status: Received by [facility] Metronidazole [Flagyl] 500 mg PO TID #9 tab Transmission Status: Received by [facility] Oxycodone [Oxyir] 10 mg PO Q6H PRN PRN 3 Days #18 tab PRN Reason: Pain Score 1-10 Transmission Status: Received by [facility] Primary Care Physician: Pawel Juares MD [Primary Care Provider] - Please Follow Up With: Natalie Craven PA-C - [phone] When: 10 days Medical Necessity - Tobacco Use Smoking Status: Never smoker Meaningful Use Info Meaningful Use Diagnoses (Choose all that apply): None applicable Inpatient E&M: 87322 Disch Hosp - No charge
--- NOTE | 2019-12-24 13:34 | PHA.DC.MC ---
Pharmacy Service has performed discharge medication reconciliation and counseling for this patient. The patient was counseled on the following discharge medications and changes in medications for homegoing were reviewed. 1. OXYCODONE 2. CIPRO 3. FLAGYL The Reason for Use, instructions for use, and potential side effects were reviewed for all new medications. The patient's questions regarding all of their medications were answered. The patient was able to verbally demonstrate an understanding of their discharge medications. Home Medications Loratadine 10 mg PO DAILY 04/23/19 Naproxen Sodium [Aleve] 220 mg PO DAILY 04/23/19 Ciprofloxacin [Cipro] 500 mg PO BID #6 tab 12/24/19 Metronidazole [Flagyl] 500 mg PO TID #9 tab 12/24/19 Oxycodone [Oxyir] 10 mg PO Q6H PRN PRN 3 Days #18 tab 12/24/19 The patient's discharge medication list was reviewed for discrepancies and discrepancies were resolved.
--- NOTE | 2019-12-24 13:36 | PCM.PN.SRG ---
Patient Problems: Active and Suspected Problems (Last Reviewed 12/19/19 @ 13:[address] Mirza Jama MD) Acute appendicitis (Acute) Subjective: Patient still having some abdominal discomfort passing flatus not having a whole lot of bowel movements as of yet but really has not been pushing his p.o. intake much. Knees feel much better since having them drained yesterday. This fluid was sent off for culture. Abdominal discomfort is improving. Objective: Abdomen is distended dressings are dry no rebound guarding or peritoneal signs - Physical Exam Vitals/I&O's: Vital Signs Temp Pulse Resp BP Pulse Ox 98.2 F 87 18 139/74 H 97 12/24/19 08:00 12/24/19 08:00 12/24/19 08:00 12/24/19 08:00 12/24/19 08:00 Oxygen Flow Rate (L/min) 2 Oxygen Delivery Method Room Air Weight: 255 lb 1.197 oz Body Mass Index (BMI) 36.6 Intake and Output for Last 24 Hours 12/22/19 12/23/19 12/24/19 23:59 23:59 23:59 Intake Total 5309.91 / 5309.91 2284.25 / 2284.25 2810 / 2810 Output Total 740 / 740 400 / 400 1000 / 1000 Balance 4569.91 / 4569.91 1884.25 / 1884.25 1810 / 1810 Microbiology Past 72 Hours 12/23/19 17:00 Fluid - Synovial (joint) Gram Stain - Final 12/23/19 17:00 Fluid - Synovial (joint) Body Fluid Culture - Preliminary No growth-Final to follow 12/23/19 17:08 Fluid - Synovial (joint) Gram Stain - Final 12/23/19 17:08 Fluid - Synovial (joint) Body Fluid Culture - Preliminary No growth-Final to follow Laboratory Results 12/23/19 17:00: Synovial Glucose Pending 12/23/19 17:00: Fluid Crystals SEE PATH REV, Fluid Crystal Source SYNOVIAL, Fl Crystal Path Review Will follow, Synovial Source RIGHT KNEE, Synovial Color Yellow, Synovial Appearance Sl Cl, Synovial WBC 3.3380 H, Synovial RBC 79 H, Synovial Tot Cell Ct 3.3500 H, Synov Polynuclear WBCs 2.788, Synov Mononuclear WBCs 0.550, Synovial Neutrophils 88 H, Synovial Lymphocytes 1, Synovial Monocytes 8, Synovial Other Cells 3, Synovial Polynuclear % 83.5, Synovial Mononuclear % 16.5, Synovial Path Comment May follow 12/23/19 17:00: Synovial Glucose Pending 12/23/19 17:05: Fluid Crystals SEE PATH REV, Fluid Crystal Source SYNOVIAL, Fl Crystal Path Review Will follow, Synovial Source LEFT KNEE, Synovial Color Yellow, Synovial Appearance Cloudy, Synovial WBC 13.7160 H, Synovial RBC 0.003 H, Synovial Tot Cell Ct 13.7440 H, Synov Polynuclear WBCs 12.644, Synov Mononuclear WBCs 1.072, Synovial Neutrophils 92 H, Synovial Lymphocytes 6, Synovial Other Cells 2, Synovial Polynuclear % 92.2, Synovial Mononuclear % 7.8, Synovial Path Comment May follow 12/24/19 06:40: WBC 17.8 H, RBC 4.81, Hgb 14.0, Hct 42.9, MCV 89.2, MCH 29.1, MCHC 32.6, RDW Std Deviation 47.6 H, RDW Coeff of Inga 14.5, Plt Count 417, MPV 9.8, Immature Gran % (Auto) 0.800, Neut % (Auto) 78.9 H, Lymph % (Auto) 10.7 L, [place] % (Auto) 6.9, Eos % (Auto) 2.4, Baso % (Auto) 0.3, Absolute Neuts (auto) 14.1 H, Absolute Lymphs (auto) 1.90, Nucleated RBC % 0 12/24/19 06:40: Sodium 134 L, Potassium 3.8, Chloride 102, Carbon Dioxide 25.0, Anion Gap 7, BUN 13, Creatinine 0.83, Estim Creat Clear Calc 96.50, Est GFR (MDRD) Af Amer 121, Est GFR (MDRD) Non-Af 100, BUN/Creatinine Ratio 15.6, Glucose 99, Calcium 8.4 L Current Medications Acetaminophen (Tylenol) 650 mg PO Q6H PRN PRN PRN Reason: Pain Score 1-10 Last Admin: 12/24/19 10:21 Dose: 650 mg Documented by: Al Hydroxide/Mg Hydroxide (Mylanta Ii) 30 ml PO Q6H PRN PRN PRN Reason: INDIGESTION Docusate Sodium (Colace) 200 mg PO BID [facility] Last Admin: 12/24/19 10:19 Dose: 200 mg Documented by: Hydromorphone HCl (Dilaudid Inj) 0.5 - 1 mg IV Q2H PRN PRN PRN Reason: Pain Score 1-10 Sodium Chloride () 250 mls @ 15 mls/hr IV .[id number] PRN PRN Reason: Saline Flush Last Infusion: 12/23/19 02:18 Dose: Infused Documented by: Sodium Chloride () 250 mls @ 15 mls/hr IV .[id number] PRN PRN Reason: Additional IVPB Infusion Potassium Chloride/Sodium Chloride () 1,000 mls @ 100 mls/hr IV .Q10H [facility] Last Infusion: 12/24/19 10:13 Dose: Infused Documented by: Meropenem 1 gm/ Sodium (Chloride) 120 mls @ 97 mls/hr IV Q8 [facility] Last Infusion: 12/24/19 09:36 Dose: Infused Documented by: Ondansetron HCl (Zofran) 4 mg IV Q8H PRN PRN PRN Reason: NAUSEA Oxycodone HCl (Oxyir) 5 - 10 mg PO Q4H PRN PRN PRN Reason: Pain Score 1-10 Last Admin: 12/23/19 20:25 Dose: 10 mg Documented by: Pantoprazole Sodium (Protonix) 40 mg PO DAILY [facility] Last Admin: 12/24/19 10:19 Dose: 40 mg Documented by: Sodium Chloride () 10 - 40 ml IV UD PRN PRN Reason: SALINE FLUSH Last Admin: 12/20/19 10:28 Dose: 10 ml Documented by: Medical Necessity - Tobacco Use Smoking Status: Never smoker Assessment/Plan All Active Problems (Last Reviewed 12/19/19 @ 13:[address] Mirza Jama MD) Acute appendicitis (Acute) Arthritis (Acute) PVC (premature ventricular contraction) (Acute) Cervical radicular pain (Acute) Diverticulitis (Acute) I think is probably in to be okay to go home today we will put him on Cipro and Flagyl for a full 10 days. Hopefully just getting out of the hospital will make things improve for him. He certainly is under significant amount of stress right now and staying here and being cooped up in the hospital has not helped that one bit.
[2019-12-24 13:41] LABS: Pathologist Review Reviewed
[2019-12-24 13:41] LABS: Pathologist Review Reviewed
[2019-12-24 13:43] LABS: Pathologist Review Reviewed
[2019-12-24 14:15] VITALS: BP 140/76; PULSE 85; RESP 18; TEMP 36.7; O2SAT 96
--- NOTE | 2019-12-24 14:26 | PCM.PN.ORT ---
Patient Problems: Active and Suspected Problems (Last Reviewed 12/19/19 @ 13:[address] Mirza Jama MD) Acute appendicitis (Acute) - Physical Exam Vitals/I&O's: Vital Signs Temp Pulse Resp BP Pulse Ox 98.2 F 87 18 139/74 H 97 12/24/19 08:00 12/24/19 08:00 12/24/19 08:00 12/24/19 08:00 12/24/19 08:00 Oxygen Flow Rate (L/min) 2 Oxygen Delivery Method Room Air Weight: 255 lb 1.197 oz Body Mass Index (BMI) 36.6 Intake and Output for Last 24 Hours 12/22/19 12/23/19 12/24/19 23:59 23:59 23:59 Intake Total 5309.91 / 5309.91 2284.25 / 2284.25 2810 / 2810 Output Total 740 / 740 400 / 400 1000 / 1000 Balance 4569.91 / 4569.91 1884.25 / 1884.25 1810 / 1810 Microbiology Past 72 Hours 12/23/19 17:00 Fluid - Synovial (joint) Gram Stain - Final 12/23/19 17:00 Fluid - Synovial (joint) Body Fluid Culture - Preliminary No growth-Final to follow 12/23/19 17:08 Fluid - Synovial (joint) Gram Stain - Final 12/23/19 17:08 Fluid - Synovial (joint) Body Fluid Culture - Preliminary No growth-Final to follow Laboratory Results 12/23/19 07:35: Diff Path Review Reviewed 12/23/19 17:00: Synovial Glucose Pending 12/23/19 17:00: Fluid Crystals SEE PATH REV, Fluid Crystal Source SYNOVIAL, Fl Crystal Path Review Reviewed, Synovial Source RIGHT KNEE, Synovial Color Yellow, Synovial Appearance Sl Cl, Synovial WBC 3.3380 H, Synovial RBC 79 H, Synovial Tot Cell Ct 3.3500 H, Synov Polynuclear WBCs 2.788, Synov Mononuclear WBCs 0.550, Synovial Neutrophils 88 H, Synovial Lymphocytes 1, Synovial Monocytes 8, Synovial Other Cells 3, Synovial Polynuclear % 83.5, Synovial Mononuclear % 16.5, Synovial Path Comment May follow 12/23/19 17:00: Synovial Glucose Pending 12/23/19 17:05: Fluid Crystals SEE PATH REV, Fluid Crystal Source SYNOVIAL, Fl Crystal Path Review Reviewed, Synovial Source LEFT KNEE, Synovial Color Yellow, Synovial Appearance Cloudy, Synovial WBC 13.7160 H, Synovial RBC 0.003 H, Synovial Tot Cell Ct 13.7440 H, Synov Polynuclear WBCs 12.644, Synov Mononuclear WBCs 1.072, Synovial Neutrophils 92 H, Synovial Lymphocytes 6, Synovial Other Cells 2, Synovial Polynuclear % 92.2, Synovial Mononuclear % 7.8, Synovial Path Comment May follow 12/24/19 06:40: WBC 17.8 H, RBC 4.81, Hgb 14.0, Hct 42.9, MCV 89.2, MCH 29.1, MCHC 32.6, RDW Std Deviation 47.6 H, RDW Coeff of Inga 14.5, Plt Count 417, MPV 9.8, Immature Gran % (Auto) 0.800, Neut % (Auto) 78.9 H, Lymph % (Auto) 10.7 L, [place] % (Auto) 6.9, Eos % (Auto) 2.4, Baso % (Auto) 0.3, Absolute Neuts (auto) 14.1 H, Absolute Lymphs (auto) 1.90, Nucleated RBC % 0 12/24/19 06:40: Sodium 134 L, Potassium 3.8, Chloride 102, Carbon Dioxide 25.0, Anion Gap 7, BUN 13, Creatinine 0.83, Estim Creat Clear Calc 96.50, Est GFR (MDRD) Af Amer 121, Est GFR (MDRD) Non-Af 100, BUN/Creatinine Ratio 15.6, Glucose 99, Calcium 8.4 L Current Medications Acetaminophen (Tylenol) 650 mg PO Q6H PRN PRN PRN Reason: Pain Score 1-10 Last Admin: 12/24/19 10:21 Dose: 650 mg Documented by: Al Hydroxide/Mg Hydroxide (Mylanta Ii) 30 ml PO Q6H PRN PRN PRN Reason: INDIGESTION Docusate Sodium (Colace) 200 mg PO BID [facility] Last Admin: 12/24/19 10:19 Dose: 200 mg Documented by: Hydromorphone HCl (Dilaudid Inj) 0.5 - 1 mg IV Q2H PRN PRN PRN Reason: Pain Score 1-10 Sodium Chloride () 250 mls @ 15 mls/hr IV .[id number] PRN PRN Reason: Saline Flush Last Infusion: 12/23/19 02:18 Dose: Infused Documented by: Sodium Chloride () 250 mls @ 15 mls/hr IV .[id number] PRN PRN Reason: Additional IVPB Infusion Potassium Chloride/Sodium Chloride () 1,000 mls @ 100 mls/hr IV .Q10H [facility] Last Infusion: 12/24/19 10:13 Dose: Infused Documented by: Meropenem 1 gm/ Sodium (Chloride) 120 mls @ 97 mls/hr IV Q8 [facility] Last Infusion: 12/24/19 09:36 Dose: Infused Documented by: Ondansetron HCl (Zofran) 4 mg IV Q8H PRN PRN PRN Reason: NAUSEA Oxycodone HCl (Oxyir) 5 - 10 mg PO Q4H PRN PRN PRN Reason: Pain Score 1-10 Last Admin: 12/23/19 20:25 Dose: 10 mg Documented by: Pantoprazole Sodium (Protonix) 40 mg PO DAILY [facility] Last Admin: 12/24/19 10:19 Dose: 40 mg Documented by: Sodium Chloride () 10 - 40 ml IV UD PRN PRN Reason: SALINE FLUSH Last Admin: 12/20/19 10:28 Dose: 10 ml Documented by: Medical Necessity - Tobacco Use Smoking Status: Never smoker Assessment/Plan All Active Problems (Last Reviewed 12/19/19 @ 13:[address] Mirza Jama MD) Acute appendicitis (Acute) Arthritis (Acute) PVC (premature ventricular contraction) (Acute) Cervical radicular pain (Acute) Diverticulitis (Acute) synovial fluid analaysis reviewed does not indicate infection severe djd will knee arthroplasty at some point may have steroid as outpt when current medical issues are resolved.
[2019-12-25 12:53] LABS: GLUCOSE, SYNOVIAL FLUID 91 mg/dL (.)
[2019-12-25 13:21] LABS: PROTEIN, SYNOVIAL FLUID 3.1 g/dL (.)
[2019-12-25 13:25] LABS: GLUCOSE, SYNOVIAL FLUID 34 mg/dL (.)
[2019-12-25 13:29] LABS: PROTEIN, SYNOVIAL FLUID 3.9 g/dL (.)
== END 2019-12-24 15:40 | disposition home or self-care (01) | DRG 340 ==
LOC: MS3 12-20 06:29
PROVIDERS: Orthopaedic Surgery; Admitting Provider Surgery; PCP Family Medicine; Referring Provider Surgery; Visit Provider Surgery
PROC: 0DTJ4ZZ Resection of Appendix, Percutaneous Endoscopic Approach (ICD-10-PCS; CPT 44970; principal; 2019-12-19 16:00)
DX: K35.32 Acute appendicitis with perforation, localized peritonitis, and gangrene, without abscess (principal); E66.9 Obesity, unspecified; Z68.36 Body mass index [BMI] 36.0-36.9, adult; M25.462 Effusion, left knee; M25.461 Effusion, right knee; M17.0 Bilateral primary osteoarthritis of knee
CPT/HCPCS: 36415; 73562; 74177; 80048; 82945; 84157; 85025; 87070; 87075; 87205; 88304; 89050; 89051; 89060; 93005; 99251; J2185; J7040; J7050; J7120; Q9967; 90686; A4216; C1760; G0463; J2405

== ENCOUNTER 2020-01-01 17:14 | Inpatient (IN) | payer OTHER, SELFPAY ==
[2019-12-19 18:25] VITALS: BMI 36.6
--- NOTE | 2020-01-01 14:07 | CT_ITS ---
STUDY: CT ABDOMEN AND PELVIS WITH CONTRAST REASON FOR EXAM: Male, 59 years old. APPENDECTOMY 12/18, DISCOMFORT SINCE, NO N/V/D/C. RADIATION DOSAGE (If Supplied By Facility): CTDIvol = ( 31.79 ) mGy, DLP = ( 1220.96 ) mGycm TECHNIQUE: Transaxial images were obtained from the dome of the diaphragm to the symphysis pubis without oral contrast. Oral and amp; IV Gastrografin and amp; 100mL Isovue-300 was administered. Sagittal and coronal images were reconstructed. Individualized dose optimization techniques were used for this CT. COMPARISON: 12/20/2019 FINDINGS: Some bibasilar discoid atelectasis. The visualized portions of the heart are within normal limits. Bubbles of pneumoperitoneum consistent with recent abdominal surgery. Normal liver. Normal gallbladder and extrahepatic biliary system. Normal spleen. Normal pancreas. Normal bilateral adrenal glands. Normal right kidney. Normal left kidney. Normal visualized stomach. Normal small intestine. There are multiple colonic diverticula consistent with diverticulosis. There are surgical clips in the region of the appendix consistent with a prior appendectomy. 3 x 5 cm fluid collection within enhancing wall in the right paracolic gutter just inferior to the liver worrisome for an abscess. Furthermore, at the site of appendectomy in the right lower quadrant there is a 4.5 x 6.0 cm fluid collection with an air-fluid level consistent with an abscess. Other areas of gas are seen in the adjacent mesentery. Normal abdominal aorta. Normal inferior vena cava. Normal retroperitoneum. Normal urinary bladder. Normal abdominal wall. Normal osseous structures. CT/Abdomen/Pelvis WITH Contrast IMPRESSION: Recent appendectomy with 2 abscesses, one at the site of the appendectomy and another in the right paracolic gutter just inferior to the liver. Electronically Signed: Lucio Sun MD at 16:59 EDT Tel , Service support ,
--- NOTE | 2020-01-01 17:09 | PCM.HP.STD ---
Problem List (1) Pelvic abscess in male Status: Acute History of Present Illness Date of Admission: 01/01/20 Patient is status post a laparoscopic appendectomy completed on 12/19/2019. He had a rather long hospital course and his white count really never dipped down below 16,000 and initially was 18,000 when I initially took him to surgery he had a lot of periappendix inflammation which I thought was going to be just a ruptured appendix however the pathology report does not show a ruptured appendix it just showed acute periappendicitis. During that hospitalization I repeated a CAT scan which did not show any signs of diverticulitis just postinflammatory changes from his surgery. He was subsequently sent home on Cipro and Flagyl. During his hospitalization he developed acute inflammation of his knees. He had both of his knees tapped and they grew out no organisms. Today he presents back to the office complaining of severe left knee pain with inability to walk very much at all. He was told by his orthopedic doctor that he did not want to inject him with a steroid until we make sure that there is no intra-abdominal process going on. CAT scan was obtained which showed a fluid collection in the right hemipelvis area. I do not have the official reading as of this documentation but it certainly looks like a pelvic abscess probably secondary to his appendectomy. Past Medical History Medical History: Medical History (Last Reviewed 01/01/20 @ 17:[address] Mirza Jama MD) Acute appendicitis (Acute) K35.80 Arthritis (Acute) M19.90 PVC (premature ventricular contraction) (Acute) I49.3 Cervical radicular pain (Acute) M54.12 Diverticulitis (Acute) K57.92 Allergies No Known Allergies Allergy (Verified 01/01/20 13:22) Home Medications: Ambulatory Orders Medication Instructions Recorded Loratadine 10 mg PO DAILY 04/23/19 Naproxen Sodium [Aleve] 220 mg PO DAILY 04/23/19 Ciprofloxacin [Cipro] 500 mg PO BID #6 tab 12/24/19 Metronidazole [Flagyl] 500 mg PO TID #9 tab 12/24/19 Surgical History: Surgical History (Last Reviewed 01/01/20 @ 17:[address] Mirza Jama MD) History of arthroscopy of both knees Z98.890 History of laparoscopic cholecystectomy Onset Date: ~12/19/19 Z90.49 Surgical History: no surgical history, - - History of bilateral knee arthroscopy Smoking Status: Never smoker Review of Systems Constitutional: Denies: Chills, Fever, Weight Change Cardiovascular: Denies: Chest Pain, Chest Pressure, Chest Tightness, Palpitations Respiratory: Denies: Cough, Hemoptysis, Shortness of breath at rest, Shortness of breath upon exertion, Wheezing Gastrointestinal: Reports: Abdominal Pain. Denies: Diarrhea, Melena, Vomiting Musculoskeletal: Reports: Joint swelling, Joint Tenderness VTE Information - Inpt Only VTE Present on Admission: No VTE Mechan Device Prophylaxis: SCD's VTE Pharm Prophylaxis ordered?: No Reason prophylaxis not ordered:: Treatment Not Indicated - Physical Exam Vitals/I&O's: Body Mass Index (BMI) 36.6 General: Alert, Oriented x3 Lungs: Clear to auscultation Cardiovascular: Regular rate, Regular Rhythm, No murmurs Abdomen: Soft, Tender - Patient has some slight tenderness on the right lower quadrant but no rebound guarding or peritoneal signs are identified. Extremities: Tenderness - Patient is experiencing left knee tenderness Assessment/Plan All Active Problems (Last Reviewed 01/01/20 @ 13:25 by Rhianna Monroe) Pelvic abscess in male (Acute) Acute appendicitis (Acute) Arthritis (Acute) PVC (premature ventricular contraction) (Acute) Cervical radicular pain (Acute) Diverticulitis (Acute) I am going to admit the patient to the hospital. I am going to have Dr. Mcconnell place a drain in this pelvis tomorrow and send the fluid off for Gram stain culture and sensitivity.
[2020-01-01 17:12] VITALS: BMI 35.4
[2020-01-01 17:26] VITALS: BP 131/66; PULSE 77; RESP 18; TEMP 37.2; O2SAT 99
[2020-01-01 18:24] LABS: International Normalized Ratio 1.1
[2020-01-01] MEDS: 0.9% Normal Saline 1,000 ML 100 ML IV (18:41)
[2020-01-01 22:10] VITALS: BP 110/66; PULSE 81; RESP 16; TEMP 37.5; O2SAT 97
[2020-01-01] MEDS: Ciprofloxacin 400 MG/200 ML BAG 200 MG IV (22:10)
[2020-01-01] MEDS: metroNIDAZOLE 500 MG/100 ML BAG 100 MG IV (23:03)
[2020-01-02] VITALS (28 sets, daily range): BP systolic 95–137; BP diastolic 58–80; PULSE 60–81; RESP 14–19; TEMP 36.3–37.4; O2SAT 95–100; BMI 35.4
[2020-01-02] MEDS: 0.9% Normal Saline 1,000 ML 100 ML IV ×2 (04:24→18:11)
[2020-01-02] MEDS: metroNIDAZOLE 500 MG/100 ML BAG 100 MG IV ×2 (05:32→14:30)
[2020-01-02 07:12] LABS: Absolute Neutrophil Count 16.4 X10^3/uL (2.0-7.7); Basophil# 0.06 X10^3/uL; Basophil% 0.3 % (0-1); Eosinophil# 0.19 X10^3/uL; Hematocrit 40.6 % (40-54); Hemoglobin 13.1 g/dL (13.0-16.5); Lymphocyte % 6.6 % (19-41); Mean Corp Hgb Conc 32.3 g/dL (32-36); Mean Corpuscular Hgb 28.7 pg (27.0-32.0); Mean Platelet Vol. 9.4 fl (6.2-12.0); Monocyte# 1.62 X10^3/uL; Monocyte% 8.2 % (0-10); NRBC Flagged by Analyzer 0 % (0-5); Neutrophil # 16.38 X10^3/uL (2.7-7.7); Neutrophil % 83.1 % (47-70); POSITIVE DIFFERENTIAL YES; Platelet Count 737 K/mm3 (150-450); RBC Distribution Width CV 14.4 % (11.6-14.6); Red Blood Count 4.56 M/mm3 (4.6-6.2); White Blood Count 19.7 K/mm3 (4.4-11.0)
[2020-01-02 07:17] LABS: Differential Indicated SCAN CRITERIA MET
[2020-01-02 07:34] LABS: Anion Gap 6 (5-15); BUN 15 mg/dL (7-18); Calcium,Total 8.6 mg/dL (8.5-10.1); Chloride 102 mmol/L (98-107); Creatinine, Serum 0.79 mg/dL (0.70-1.30); EST Glomerular Filtration Rate 106 mL/min (>60); Est Glom Filt Rate - Afr Amer 129 mL/min (>60); Estimated Creatinine Clearance 101.39 ml/min; Glucose 101 mg/dL (74-106); Potassium 3.9 mmol/L (3.5-5.1); Sodium Level 135 mmol/L (136-145)
[2020-01-02] MEDS: Midazolam 2 MG/2 ML Syringe IV (10:01)
[2020-01-02] MEDS: fentaNYL 100 MCG/2 ML Ampul IV (10:03)
--- NOTE | 2020-01-02 11:00 | CT_ITS ---
PROCEDURE: CT DIRECTED ABSCESS DRAINAGE, PERITONEAL DATE OF EXAMINATION: 01/02/2020 INDICATION: Male, 59 years old. Right lower quadrant abscess PHYSICIAN: Mahin Sevilla M.D. CONSENT: Written informed consent was obtained having explained the risks, benefits and alternatives in detail with the patient who accepted the risks and agreed to proceed. Laboratory review and clinical assessment was performed. CONSCIOUS SEDATION PROTOCOL: The Drugs used were: 2 mg Versed, IV., and 50 mcg Fentanyl, IV. The sedation time was: 12 minutes. Conscious sedation was started at 10:01 AM and terminated at 10:13 AM. The conscious sedation protocol was independently monitored. RADIATION DOSAGE (If Supplied By Facility): CTDIvol = ( 19 ) mGy, DLP = ( 1044.39 ) mGycm. Individualized dose optimization techniques were utilized. TECHNIQUE: CT sections were made through the abdomen and pelvis revealing an abscess in the right lower quadrant. The skin surface was prepped and draped in a sterile fashion. Puncture of this collection was performed initially with a 8.5 Swedish catheter and fluid was aspirated. Drainage catheter was then inserted into the collection and formed into position. Additional fluid was aspirated for a total of approximately 35 cc of purulent fluid. The catheter was sutured into position to allow for continued drainage. Followup CT sections reveals good position of the catheter. CT/Abscess/Fistula/Sinus Tract IMPRESSION: 1. CT directed drainage of a fluid collection using CT image guidance and image documentation as described. 2. Conscious Sedation protocol utilized with independent monitoring Electronically Signed: Mahin Sevilla, at 11:11 EDT , Service support ,
[2020-01-02] MEDS: Ciprofloxacin 400 MG/200 ML BAG 200 MG IV (11:09)
[2020-01-02] MEDS: Loratadine 10 MG Tablet PO (11:15)
[2020-01-02] MEDS: Naproxen 250 MG Tablet PO (11:15)
--- NOTE | 2020-01-02 11:44 | PN.SURG_ITS ---
Patient Problems: Active and Suspected Problems (Last Reviewed 01/01/20 @ 17:[address] Mirza Jama MD) Pelvic abscess in male (Acute) Subjective: Patient had a successful drainage of his abscess in the right lower quadrant. However there is a significant amount of air above his liver and in the draining process explosive amount of air came out. Objective: Abdomen is soft tender in the right lower quadrant where the drain is located no rebound guarding or peritoneal signs are identified. - Physical Exam Vitals/I&O's: Vital Signs Temp Pulse Resp BP Pulse Ox 99.3 F H 72 18 121/62 H 97 01/02/20 11:31 01/02/20 11:31 01/02/20 11:31 01/02/20 11:31 01/02/20 11:31 Oxygen Delivery Method [3] Room Air Oxygen Delivery Method [2] Room Air Oxygen Delivery Method [1 ( Room Air Initial Baseline)] Oxygen Delivery Method Room Air Weight: 247 lb Body Mass Index (BMI) 35.4 Intake and Output for Last 24 Hours 12/31/19 01/01/20 01/02/20 23:59 23:59 23:59 Intake Total 600 / 600 1685.84 / 1685.84 Output Total 600 / 600 900 / 900 Balance 0 / 0 785.84 / 785.84 Laboratory Results 01/01/20 17:51: PT 14.0, INR 1.1 01/02/20 06:35: WBC 19.7 H, RBC 4.56 L, Hgb 13.1, Hct 40.6, MCV 89.0, MCH 28.7, MCHC 32.3, RDW Std Deviation 47.0 H, RDW Coeff of Inga 14.4, Plt Count 737 H, MPV 9.4, Immature Gran % (Auto) 0.800, Neut % (Auto) 83.1 H, Lymph % (Auto) 6.6 L, [place] % (Auto) 8.2, Eos % (Auto) 1.0, Baso % (Auto) 0.3, Absolute Neuts (auto) 16.4 H, Absolute Lymphs (auto) 1.30, Nucleated RBC % 0, Diff Path Review July01/02/20 06:35: Sodium 135 L, Potassium 3.9, Chloride 102, Carbon Dioxide 27.0, Anion Gap 6, BUN 15, Creatinine 0.79, Estim Creat Clear Calc 101.39, Est GFR (MDRD) Af Amer 129, Est GFR (MDRD) Non-Af 106, BUN/Creatinine Ratio 19.0, Glucose 101, Calcium 8.6 Current Medications Acetaminophen (Acetaminophen 325 Mg Tablet) 650 mg PO Q6H PRN PRN PRN Reason: Pain Score 1-10 Hydromorphone HCl (Hydromorphone 0.5 Mg/0.5 Ml Syringe) 0.5 - 1 mg IV Q2H PRN PRN PRN Reason: Pain Score 1-10 Sodium Chloride () 1,000 mls @ 100 mls/hr IV .Q10H [facility] Last Infusion: 01/02/20 09:15 Dose: 0 mls/hr Documented by: Ciprofloxacin (Cipro) 400 mg in 200 mls @ 200 mls/hr IV Q12 [facility] Last Admin: 01/02/20 11:09 Dose: 200 mls/hr Documented by: Metronidazole (Flagyl) 500 mg in 100 mls @ 100 mls/hr IV Q8 [facility] Last Infusion: 01/02/20 06:33 Dose: Infused Documented by: Sodium Chloride () 250 mls @ 15 mls/hr IV .[id number] PRN PRN Reason: Saline Flush Sodium Chloride () 250 mls @ 15 mls/hr IV .[id number] PRN PRN Reason: Additional IVPB Infusion Sodium Chloride () 500 mls @ 0 mls/hr IV .Q0M [facility] Stop: 01/02/20 23:59 Last Infusion: 01/02/20 11:09 Dose: Infused Documented by: Loratadine (Loratadine 10 Mg Tablet) 10 mg PO DAILY [facility] Last Admin: 01/02/20 11:15 Dose: 10 mg Documented by: Naproxen (Naproxen 250 Mg Tablet) 250 mg PO DAILY [facility] Last Admin: 01/02/20 11:15 Dose: 250 mg Documented by: Ondansetron HCl (Ondansetron 4 Mg/2 Ml Vial) 4 mg IV Q8H PRN PRN PRN Reason: NAUSEA Oxycodone HCl (Oxycodone 5 Mg Tablet) 5 - 10 mg PO Q4H PRN PRN PRN Reason: Pain Score 6-10 Sodium Chloride (0.9% Saline Lock 10 Ml Syringe) 10 - 40 ml IV UD PRN PRN Reason: SALINE FLUSH Medical Necessity - Tobacco Use Smoking Status: Never smoker Assessment/Plan All Active Problems (Last Reviewed 01/01/20 @ 17:[address] Mirza Jama MD) Pelvic abscess in male (Acute) Acute appendicitis (Acute) Arthritis (Acute) PVC (premature ventricular contraction) (Acute) Cervical radicular pain (Acute) Diverticulitis (Acute) I do not feel comfortable that with the explosive amount of air it has to be coming from a hole in some viscous either he has a suture line leak or perforation of diverticulitis but I do not think he is going to get better with just a small drain and I think it were going to have to take him back to surgery and perform an exploratory laparoscopy. I explained to him that he may need to have a laparotomy he could even have to have a colostomy depending on what I find. We reviewed general risk of surgery to include bleeding possible recurrent infections possible injury to surrounding structures possible need for colostomy patient understands these risk all of his questions asked were answered he is willing to proceed.
--- NOTE | 2020-01-02 14:05 | COL_PTH ---
PATIENT: EDDIE KLINE LOC: [facility]3 U#:[id number] AGE/SX: 59/M ROOM: [facility]316 RE01/01/[address]: Dr. Mirza Jama MD : 1960 BED: 1 DIS: 01/07/2020 SPEC #: [id number] RECD: 01/02/20 16:16 STATUS: TAMMY PETTY #: [id number] KRYSTA: 01/02/20 14:[address]: Mirza Jama DEPT: SURGICAL PATHOLOGY RECD BY: Lisa Oates ENTERED: 01/03/20 07:42 SP TYPE: COLON OTHR DR: Dr. Pawel Juares MD Tissues: A - Colon, NOS B - Colon, NOS Procedures: Surgery Specimen Level V HEADER OPERATION: Exploratory laparoscopy, converted to laparotomy, right hemicolectomy PRE-OP DIAGNOSIS: Pelvic abscess TISSUE SUBMITTED: A - Right colon and terminal ileum, B - Sigmoid colon MICROSCOPIC DIAGNOSIS A. Right colon and terminal ileum, right hemicolectomy: Serosal fibrosis, fibrinoid deposition, vascular congestion and chronic and acute inflammation. Four out of four lymph nodes with no pathologic change. See comment. B. Sigmoid colon, segmental colectomy: Nonruptured diverticular disease of colon. Focal serosal fibrosis, fibrinoid deposition, vascular congestion, acute and chronic inflammation and fat necrosis. See comment. AM:richardson 01/07/20 COMMENT A. The process involves the serosal surfaces of the large and small bowel that predominantly involves the segment of small bowel. The findings are consistent with pelvic/abdominal abscess. Clinical correlation is suggested. B. The findings are consistent with pelvic/abdominal abscess. Clinical correlation is suggested. Case has been reviewed in consultation with Dr. Brooks who concurs with the above diagnosis. IDC:ANALIA MICROSCOPIC DESCRIPTION Slides are reviewed. GROSS DESCRIPTION A - Received in fixative is one container labeled with the patient's name and designated right colon and terminal ileum. The specimen consists of a right hemicolectomy specimen consisting of cecum with ascending colon and large segment of small intestine. Both resection margins are stapled. The serosal surface of both small intestine and large intestine is covered with alfonso, purulent exudate. The cecum with ascending colon measures 12 cm in length and segment of small intestine measures 27 cm in length. The appendix is not identified. Also present in the container is a detached segment of adipose tissue measuring 7 x 5 x 1 cm. No mucosal lesion is identified. The lumen contains small amount of fecal material. More dictation will follow after overnight fixation. / SJ: 01/03/20 No mucosal lesions are identified. Employee Training Specialist sections are submitted in nine cassettes as follows: 1?- mucosal margins of excision, 2 - ileocecal valve, 3 & 4 - small bowel, 5-7 - large bowel, 8 & 9 - veterans service representative lymph nodes. / AM: 01/06/20 B - Received in fixative is one container labeled with the patient's name and designated sigmoid colon. The specimen consists of a segment of colon with attached pericolonic adipose tissue measuring 12 cm in length. Both resection margins are stapled. Sections reveal multiple diverticula. No mucosal lesion is identified. Also present in the container are two pieces of adipose tissue measuring 9 x 3 x 4 cm and 6 x 3.5 x 1 cm. Sections do not reveal any mass lesion. A focal area is covered with alfonso, purulent exudate. Sections will be submitted after fixation. / : 01/03/20 TC: Sections reveal multiple diverticula. Focal diverticula appear to be ruptured. Sections of the pericolonic adipose tissue do not reveal obviously enlarged lymph nodes. Employee Training Specialist sections are submitted in six cassettes as follows: 1 - resection margin, 2-4 - diverticula, 5 & 6 - pericolonic adipose tissue. / : 01/06/20 TC:2 CPT: 78599 x2
[2020-01-02] MEDS: Bupivacaine Mpf 0.5% 30 ML VIAL (15:49)
--- NOTE | 2020-01-02 16:26 | OP.PCM_ITS ---
Problem List (1) Pelvic abscess in male Status: Acute Report of Operation Date of Procedure: 01/02/20 Pre-Operative Diagnosis: Pelvic abscess Post-Operative Diagnosis: Same Surgery/Procedure Performed:: Exploratory laparotomy. Right hemicolectomy. Sigmoid colectomy and end colostomy (Ugarte's procedure) Type of Anesthesia:: General Anesthesiologist: Jack Cook Specimen's removed: 1. Right colon and terminal ileum. 2. Sigmoid colon Estimated Blood Loss (mL): 150 cc Fluids Replaced: 1100 cc lr Description of Procedure: Patient was brought into the operating room. Placed in the supine position. Under excellent general trach intubation Leos catheter was placed and the abdomen was sterilely prepped draped in usual fashion. I injected local above the umbilicus, made an incision and dissected down to the fascia. Varies needle was placed inside the abdomen. The abdomen was insufflated to 15 torr. A #5 trocar was placed using a Visiport. In the left lower quadrant previous incision another #5 trochars placed under direct visualization patient had dense adhesions and I thought it was best to place a GelPort in to facilitate my dissection. I made an incision below the umbilicus dissected down through the fascia and into the intra-abdominal cavity without difficulty. I placed the GelPort into the abdominal cavity and reinflated the abdomen. Using my left hand I tried to do blunt dissection to free up these adhesions but it became renuka y tenuous and I quickly realized that this was not a safe thing to do. I made a determination that I needed to open him up so that I can better free up all of the intestine. At length and my lower midline incision. I started to dissect the small bowel off of the sigmoid colon. In doing this the blood supply to the terminal ileum was compromised. I made a determination that I needed to lengthen my incision so that I could better mobilize all the small intestine as well as the right colon. It took quite a bit of dissecting to get the terminal ileum off of the sigmoid colon it was densely adherent in the pelvis. The sigmoid colon itself was densely adhered to the right pelvic sidewall. During this part of the dissection and mobilizing everything we did run into several intraloop abscesses as well as an abscess that went up the right lateral sidewall towards the liver. I inspected my staple line and it was intact it was not leaking here. And although the small intestine and the terminal ileum was significantly inflamed I did not see any holes here but it was clear that the blood supply in the mesenteric rent in this area really made this area tenuous and I really did not feel comfortable leaving this in place. I decided at this point that it was best that I remove this and part of this cecum and right colon. And do a limited right hemicolectomy here. White line of Toldt was mobilized using the LigaSure impact. I transected the transverse colon proximally with a 75 linear cutter. I came down to the small intestine to a piece of this tissue that was good viable with a good blood supply and transected this as well. I used a 75 linear cutter here as well I then came along the mesentery staying very close to the colon and terminal ileum and then sent this off to pathology for permanent sectioning. I brought the small intestine up to the transverse colon and created a [id number] functional end-to-end anastomosis with a 75 linear cutter and then closing the enterotomy with a 60 stapler. I used 3 3.0 silks to achieve good hemostasis. I touch the anastomosis with some Betadine as well. I brought a piece of omentum down over this anastomosis and sutured it all around the anastomosis using 3.0 silks. I then placed this anastomosis in the right upper quadrant. Out the way of my other dissection. I had an excellent anastomosis widely patent. I now had another dilemma the sigmoid colon itself had some serosal injuries and diverticuli were visibly identified and very thin-walled the entire sigmoid colon itself was extremely thick but I did not see any obvious holes but once again I agonized with what I was going to do with this sigmoid colon. I had lengthy discussions with my partner who was helping me in the in I thought the best thing to do was remove this and give him an end colostomy. I was able to dissect and mobilize distal to the sigmoid colon I created a hole in the mesentery and was able to get a 30 stapler across this and cut the sigmoid colon off of the rectum. I used the LigaSure impact to come up and take the mesentery without difficulty and I had excellent hemostasis. I transected the sigmoid colon near the descending colon with a 75 linear cutter I then mobilized the rest of the descending colon taking down the inferior mesenteric vessels so that I could bring this up and create a end colostomy without difficulty. I placed a suture of 0 Prolene on the rectal stump and sutured it to the left lateral sidewall and left a long tail so that it would be visualized. We then irrigated with 2 L of warm irrigation there were no undrained abscesses. All of the remaining intestine in the abdomen was viable. I had excellent hemostasis. I made a hole in the skin in the left lower quadrant I dissected down using el ectrocautery to the fascia cruciate incision was made and I opened the fascia up in and accompanied at least for my fingers. I brought the descending colon up sutured to the underlying surfaces with 2 sutures of 0 Vicryl. The stoma that came up was viable and pink. I got an accurate needle and sponge count. I closed the peritoneum with 0 Vicryl. And then I closed the fascia with #1 PDS. Cut the staple line off of the descending colon I matured the stoma using 3-0 Vicryl. The stoma was viable and pink. Midline was irrigated is brought together with deep dermal stitches with 3-0 Vicryl in a running 4-0 Monocryl. Other small #5 trocar sites were closed with 4-0 Monocryl. Sterile dressings were applied stoma appliance was applied. Patient was extubated and sent to the recovery room in satisfactory condition. He made approximately 200 cc of urine throughout the procedure he got about 1100 cc of crystalloid. In the end I feel that this was the best operation that I could give him so that we would not leave any questionable intestines that would cause problems such as leaking or further infection or abscess. - Admit VTE Documentation VTE Present on Admission: No VTE Mechan Device Prophylaxis: SCD's VTE Pharm Prophylaxis ordered?: No Reason prophylaxis not ordered:: Treatment Not Indicated [id number]: Other Procedure See Notes - [id number], [id number]
[2020-01-02] MEDS: HYDROmorphone PCA 0.2 MG/ML 100 ML BAG 20 MG IV (17:45)
[2020-01-02] MEDS: 0.9% Saline Lock 10 ML Syringe IV (17:50)
[2020-01-03] VITALS (21 sets, daily range): BP systolic 109–131; BP diastolic 60–83; PULSE 55–75; RESP 14–18; TEMP 36.4–37; O2SAT 95–99
[2020-01-03] MEDS: 0.9% Normal Saline 1,000 ML 100 ML IV (05:13)
[2020-01-03 07:28] LABS: Absolute Lymphocyte Count 1.01 X10^3/uL (0.83-4.51); Absolute Neutrophil Count 16.5 X10^3/uL (2.0-7.7); Basophil# 0.03 X10^3/uL; Basophil% 0.2 % (0-1); Hematocrit 42.1 % (40-54); Hemoglobin 13.3 g/dL (13.0-16.5); Lymphocyte # 1.01 X10^3/ul (4.0); Lymphocyte % 5.2 % (19-41); Mean Corp Hgb Conc 31.6 g/dL (32-36); Mean Corpuscular Hgb 28.2 pg (27.0-32.0); Mean Corpuscular Volume 89.4 fL (80-94); Mean Platelet Vol. 9.5 fl (6.2-12.0); Monocyte# 1.61 X10^3/uL; Monocyte% 8.3 % (0-10); NRBC Flagged by Analyzer 0 % (0-5); Neutrophil # 16.53 X10^3/uL (2.7-7.7); Neutrophil % 85.7 % (47-70); POSITIVE COUNT YES; POSITIVE DIFFERENTIAL YES; RBC Distribution Width CV 14.3 % (11.6-14.6); RBC Distribution Width SD 47.2 fl (35.1-43.9); Red Blood Count 4.71 M/mm3 (4.6-6.2); White Blood Count 19.3 K/mm3 (4.4-11.0)
[2020-01-03 07:31] LABS: Differential Indicated SCAN CRITERIA MET
[2020-01-03 07:33] LABS: Platelet Count 772 K/mm3 (150-450)
[2020-01-03 07:54] LABS: Anion Gap 6 (5-15); BUN 26 mg/dL (7-18); Calcium,Total 8.7 mg/dL (8.5-10.1); Chloride 104 mmol/L (98-107); Differential Comment SCANNED; EST Glomerular Filtration Rate 81 mL/min (>60); Est Glom Filt Rate - Afr Amer 98 mL/min (>60); Glucose 142 mg/dL (74-106); Platelet Estimate MKD INC (ADEQ); Potassium 4.4 mmol/L (3.5-5.1); Sodium Level 137 mmol/L (136-145)
--- NOTE | 2020-01-03 08:52 | NURSING ---
LATE ENTRY - 0744 - DR AGUILAR LOPEZ TO NOTIFY HIM OF PLATELETS THIS AM 772. NO NEW ORDERS @ THIS TIME.
--- NOTE | 2020-01-03 10:33 | PN.SURG_ITS ---
Patient Problems: Active and Suspected Problems (Last Reviewed 01/01/20 @ 17:[address] Mirza Jama MD) Pelvic abscess in male (Acute) Subjective: Pain is controlled with his SLITTER CUT OFF OPERATOR pump. He has not had any air out of his colostomy bag as of yet. Remarkably the patient is not complaining of any knee pain now. Objective: Dressings are dry. Serous fluid from ZIGGY drain. Stoma is pink and viable and starting to sweat. No air in the colostomy bag. - Physical Exam Vitals/I&O's: Vital Signs Temp Pulse Resp BP Pulse Ox 97.8 F 70 18 122/82 H 96 01/03/20 08:20 01/03/20 08:20 01/03/20 08:20 01/03/20 08:20 01/03/20 08:20 Oxygen Flow Rate (L/min) 2 Oxygen Delivery Method [3] Room Air Oxygen Delivery Method [2] Room Air Oxygen Delivery Method [1 ( Room Air Initial Baseline)] Oxygen Delivery Method Room Air Weight: 246 lb 15.989 oz Body Mass Index (BMI) 35.4 Intake and Output for Last 24 Hours 01/01/20 01/02/20 01/03/20 23:59 23:59 23:59 Intake Total 600 / 600 2187.51 / 2187.51 1161.67 / 1161.67 Output Total 600 / 600 1395 / 1395 285 / 285 Balance 0 / 0 792.51 / 792.51 876.67 / 876.67 Microbiology Past 72 Hours 01/02/20 10:49 Wound Abcess - Abdominal Gram Stain - Final Laboratory Results 01/03/20 06:55: WBC 19.3 H, RBC 4.71, Hgb 13.3, Hct 42.1, MCV 89.4, MCH 28.2, MCHC 31.6 L, RDW Std Deviation 47.2 H, RDW Coeff of Inga 14.3, Plt Count 772 H*, MPV 9.5, Immature Gran % (Auto) 0.600, Neut % (Auto) 85.7 H, Lymph % (Auto) 5.2 L, Cross % (Auto) 8.3, Eos % (Auto) 0.0, Baso % (Auto) 0.2, Absolute Neuts (auto) 16.5 H, Absolute Lymphs (auto) 1.01, Nucleated RBC % 0, Differential Comment SCANNED, Diff Path Review May foll, Platelet Estimate [employer] 01/03/20 06:55: Sodium 137, Potassium 4.4, Chloride 104, Carbon Dioxide 27.0, Anion Gap 6, BUN 26 H, Creatinine 1.00, Estim Creat Clear Calc 80.10, Est GFR (MDRD) Af Amer 98, Est GFR (MDRD) Non-Af 81, BUN/Creatinine Ratio 26.0 H, Glucose 142 H, Calcium 8.7 Current Medications Acetaminophen (Acetaminophen 325 Mg Tablet) 650 mg PO Q6H PRN PRN PRN Reason: Pain Score 1-10 Bisacodyl (Bisacodyl 10 Mg Suppository) 10 mg RECTAL .X1 PRN PRN PRN Reason: See label comments Bisacodyl (Bisacodyl 5 Mg Tablet) 10 mg PO .X1 PRN PRN PRN Reason: See label comments Diphenhydramine HCl (Diphenhydramine 50 Mg/Ml Syringe) 12.5 - 25 mg IV Q6H PRN PRN PRN Reason: ITCHING Diphenhydramine HCl (Diphenhydramine 25 Mg Capsule) 12.5 - 25 mg PO Q6H PRN PRN PRN Reason: Pruritis Enoxaparin Sodium (Enoxaparin 40 Mg/0.4 Ml Syringe) 40 mg SC DAILY [facility] Hydromorphone HCl (Hydromorphone 0.5 Mg/0.5 Ml Syringe) 0.5 - 1 mg IV Q2H PRN PRN PRN Reason: Pain Score 1-10 Hydromorphone HCl (Hydromorphone Tafe Teacher 0.2 Mg/Ml 100 Ml Bag) 20 mg IV UD OLIVER; Protocol Last Admin: 01/02/20 17:45 Dose: 20 mg Documented by: Sodium Chloride () 1,000 mls @ 100 mls/hr IV .Q10H OLIVER Last Infusion: 01/03/20 06:40 Dose: 100 mls/hr Documented by: Sodium Chloride () 250 mls @ 15 mls/hr IV .[id number] PRN PRN Reason: Saline Flush Sodium Chloride () 250 mls @ 15 mls/hr IV .[id number] PRN PRN Reason: Additional IVPB Infusion Meropenem 2 gm/ Sodium (Chloride) 140 mls @ 97 mls/hr IV Q8 [facility] Last Infusion: 01/03/20 06:40 Dose: Infused Documented by: Sodium Chloride () 1,000 mls @ 150 mls/hr IV .[id number] [facility] Loratadine (Loratadine 10 Mg Tablet) 10 mg PO DAILY [facility] Last Admin: 01/03/20 08:34 Dose: Not Given Documented by: Naloxone HCl (Naloxone 0.4 Mg/Ml Syringe) 0.02 mg IV Q1M PRN PRN Reason: RR <10 and pt unresponsive Naproxen (Naproxen 250 Mg Tablet) 250 mg PO DAILY [facility] Last Admin: 01/03/20 08:34 Dose: Not Given Documented by: Ondansetron HCl (Ondansetron 4 Mg/2 Ml Vial) 4 mg IV Q8H PRN PRN PRN Reason: NAUSEA Oxycodone HCl (Oxycodone 5 Mg Tablet) 5 - 10 mg PO Q4H PRN PRN PRN Reason: Pain Score 6-10 Senna/Docusate Sodium (Senna/Docusate Sodium 1 Tablet) 2 tablet PO QHS [facility] Last Admin: 01/02/20 20:18 Dose: Not Given Documented by: Sodium Chloride (0.9% Saline Lock 10 Ml Syringe) 10 - 40 ml IV UD PRN PRN Reason: SALINE FLUSH Last Admin: 01/02/20 17:50 Dose: 10 ml Documented by: Medical Necessity - Tobacco Use Smoking Status: Never smoker Assessment/Plan All Active Problems (Last Reviewed 01/01/20 @ 17:[address] Mirza Jama MD) Pelvic abscess in male (Acute) Acute appendicitis (Acute) Arthritis (Acute) PVC (premature ventricular contraction) (Acute) Cervical radicular pain (Acute) Diverticulitis (Acute) Postoperative day #1 Sat down with patient explained the operation and the thought process of not finding any obvious holes necessitating removal of both the terminal ileum and right colon as well as sigmoid colon. White count is still elevated. Have consulted infectious disease. Gram stain from drainage came back with mixed saida most of it gram-positive cocci 4+.
[2020-01-03] MEDS: 0.9% Normal Saline 1,000 ML 999 ML IV (10:40)
[2020-01-03] MEDS: Enoxaparin 40 MG/0.4 ML Syringe SC (10:40)
--- NOTE | 2020-01-03 11:20 | CASEMGMT ---
HARRIETT CHERRY Face to Face with patient for initial transition planning/care coordination assessment. HARRIETT CHERRY introduced self and role at [facility]. Patient lying in bed, alert and oriented, at bedside. Patient willing to participate in assessment and is able to answer all questions appropriately. Care providers, pharmacy, and demographics verified. Patient wishes to discharge home with HHC through [facility]. Patient states he has no further needs or concerns at this time. CM to follow for discharge planning needs that may arise. PCP: Mor Specialists: Wiley surgeon Preferred Pharmacy: [facility] Retail Insurance: [facility] Prescription Benefit: yes Living Will/HPOA: yes, Rhianna Robert LNOK: Living Arrangements: Patient lives with in a 2 story home with option for bed and bath on the first floor. Patient was independent at home prior to hospitalization. Transportation: self/ DME/HHC: Patient has walker at home. Denies previous HHC. Patient will need HHC at discharge for ostomy teaching and prefers [facility]. HARRIETT CHERRY sent [facility] referral to review. Disposition Plan: Patient to discharge home with HHC, family support, and follow-up plans in place. Dea MERRILL, RN, CM
[2020-01-03] MEDS: 0.9% Normal Saline 1,000 ML 150 ML IV ×2 (12:02→18:41)
[2020-01-03 13:54] LABS: Pathologist Review Reviewed
--- NOTE | 2020-01-03 16:39 | PCM.HP.ID ---
Problem List (1) Pelvic abscess in male Status: Acute Reason for Consult: intra abd abscess Consulted by: Dr. Jama History of Present Illness: The patient is a 59 year old M who had lap appy by Dr. Jama 12/19/19, post op course complicated by persistent leukocytosis and knee inflammation. Discharged on cipro/flagyl, was feeling better every day at home, no n/v/d, no abd pain. Some sweats at home. Had surgery followup, repeat CT showed worsening, admitted and taken to OR 01/[address] Jama for colon resection and drainage of abscesses. On walker, feeling better. Full ROS performed and neg except as noted above. - Medical History Surgical History: reviewed Allergies/Adverse Reactions: Allergies No Known Allergies Allergy (Verified 01/01/20 13:22) Home Medications: Ambulatory Orders Medication Instructions Recorded Loratadine 10 mg PO DAILY PRN PRN 04/23/19 Naproxen Sodium [Aleve] 220 mg PO DAILY 04/23/19 Docusate Sodium [Colace] 100 mg PO BID 01/01/20 Oxycodone HCl 5 - 10 mg PO Q6H PRN PRN 01/01/20 - Social History Tobacco Use: non-smoker Vital Signs Temp Pulse Resp BP Pulse Ox 97.6 F L 75 18 120/60 97 01/03/20 15:00 01/03/20 15:00 01/03/20 15:00 01/03/20 15:00 01/03/20 15:00 Oxygen Flow Rate (L/min) 2 Oxygen Delivery Method [3] Room Air Oxygen Delivery Method [2] Room Air Oxygen Delivery Method [1 ( Room Air Initial Baseline)] Oxygen Delivery Method Nasal Cannula Weight: 112.037 kg Body Mass Index (BMI) 35.4 Microbiology Past 72 Hours 01/02/20 10:49 Gram Stain - Final Wound Abcess - Abdominal Wound Culture - Preliminary Alpha Hemolytic Streptococcus Gram positive organism Gram negative zach Laboratory Tests Past 24 Hrs 01/02/20 01/03/20 01/03/20 06:35 06:55 06:55 WBC 19.3 H RBC 4.71 Hgb 13.3 Hct 42.1 MCV 89.4 MCH 28.2 MCHC 31.6 L RDW Std Deviation 47.2 H RDW Coeff of Inga 14.3 Plt Count 772 H* MPV 9.5 Immature Gran % (Auto) 0.600 Neut % (Auto) 85.7 H Lymph % (Auto) 5.2 L [place] % (Auto) 8.3 Eos % (Auto) 0.0 Baso % (Auto) 0.2 Absolute Neuts (auto) 16.5 H Absolute Lymphs (auto) 1.01 Nucleated RBC % 0 Differential Comment SCANNED Diff Path Review Reviewed July foll Platelet Estimate [employer] Sodium 137 Potassium 4.4 Chloride 104 Carbon Dioxide 27.0 Anion Gap 6 BUN 26 H Creatinine 1.00 Estim Creat Clear Calc 80.10 Est GFR (MDRD) Af Amer 98 Est GFR (MDRD) Non-Af 81 BUN/Creatinine Ratio 26.0 H Glucose 142 H Calcium 8.7 - Other Studies Radiology: [] reviewed Other Studies: [] Route of nutrition/ use of supplements: [] Nutritional Intake: [] IV Site: [] Leos Catheter: [] - Physical Exam General: Alert, Oriented x3, Cooperative, No apparent distress HEENT: Atraumatic, PERRLA, EOMI Neck: Supple, No Nodes Lungs: Clear to auscultation, Normal air movement Cardiovascular: Regular rate, Regular Rhythm Abdomen: Soft, Non-Distended, Tender - mild soreness Extremities: No edema Skin: No rashes, Rash Present IV Site: Peripheral, without redness Musculoskeletal: No Tenderness to Palpation of Joints or Extremities Neurological: Cranial nerves II-XII grossly intact - Assessment/Plan Antibiotics: [] Assessment/Plan: [] Active and Suspected Problems (Last Reviewed 01/01/20 @ 17:[address] Mirza Jama MD) Pelvic abscess in male (Acute) Now s/p 01/02/20 R hemicolectomy, sigmoid colectomy, and colostomy placement by Dr. Jama. On meropenem, spoke with micro lab. Surg cx gram stain with heavy GPC, identified as alpha strep. Cx also with GNR and gram positive organism. Cont meropenem. Now that he has good source control, likely will be able to stop abx on post-op day 3 or 4. Will follow cx results. Will follow, thank you, d/w Dr. Jama.
[2020-01-03] MEDS: HYDROmorphone PCA 0.2 MG/ML 100 ML BAG 20 MG IV (18:40)
[2020-01-04] VITALS (14 sets, daily range): BP systolic 106–127; BP diastolic 59–70; PULSE 68–75; RESP 16–18; TEMP 36.3–37; O2SAT 90–98
--- NOTE | 2020-01-04 00:54 | NURSING ---
pt's furnace tapper assessment showed 92 attempts. this rn discussed pain control with pt and pt reported that his pain is under control and that when he is attempting a dose he is pushing the button numerous times at once. this rn educated pt to only press the dose once for one administration.
[2020-01-04] MEDS: 0.9% Normal Saline 1,000 ML 150 ML IV ×3 (03:15→20:24)
--- NOTE | 2020-01-04 07:42 | PN.SURG_ITS ---
Patient Problems: Active and Suspected Problems (Last Reviewed 01/01/20 @ 17:[address] Mirza Jama MD) Pelvic abscess in male (Acute) Subjective: Patient is comfortable - Physical Exam Vitals/I&O's: Vital Signs Temp Pulse Resp BP Pulse Ox 98 F 70 18 106/59 L 96 01/04/20 05:16 01/04/20 05:16 01/04/20 07:12 01/04/20 05:16 01/04/20 07:16 Oxygen Flow Rate (L/min) 2 Oxygen Delivery Method [3] Room Air Oxygen Delivery Method [2] Room Air Oxygen Delivery Method [1 ( Room Air Initial Baseline)] Oxygen Delivery Method Nasal Cannula Weight: 246 lb 15.989 oz Body Mass Index (BMI) 35.4 Intake and Output for Last 24 Hours 01/02/20 01/03/20 01/04/20 23:59 23:59 23:59 Intake Total 2187.51 / 2187.51 5504.17 / 5564.17 1275 / 1275 Output Total 1395 / 1395 1005 / 1355 775 / 775 Balance 792.51 / 792.51 4499.17 / 4209.17 500 / 500 General: Alert, Oriented x3 Lungs: Normal air movement Cardiovascular: Regular rate, Regular Rhythm Abdomen: Soft, Non-Distended, - - Stoma pink Microbiology Past 72 Hours 01/02/20 10:49 Wound Abcess - Abdominal Gram Stain - Final 01/02/20 10:49 Wound Abcess - Abdominal Wound Culture - Preliminary Alpha Hemolytic Streptococcus Gram positive organism Gram negative zach 01/02/20 10:49 Wound Abcess - Abdominal Anaerobic Culture - Preliminary Checking for anaerobes, further studies to follow. Laboratory Results 01/02/20 06:35: Diff Path Review Reviewed 01/03/20 06:55: Differential Comment SCANNED, Diff Path Review May yeison Platelet Estimate MKD INC 01/03/20 06:55: Sodium 137, Potassium 4.4, Chloride 104, Carbon Dioxide 27.0, Anion Gap 6, BUN 26 H, Creatinine 1.00, Estim Creat Clear Calc 80.10, Est GFR (MDRD) Af Amer 98, Est GFR (MDRD) Non-Af 81, BUN/Creatinine Ratio 26.0 H, Glucose 142 H, Calcium 8.7 Current Medications Acetaminophen (Acetaminophen 325 Mg Tablet) 650 mg PO Q6H PRN PRN PRN Reason: Pain Score 1-10 Bisacodyl (Bisacodyl 10 Mg Suppository) 10 mg RECTAL .X1 PRN PRN PRN Reason: See label comments Bisacodyl (Bisacodyl 5 Mg Tablet) 10 mg PO .X1 PRN PRN PRN Reason: See label comments Diphenhydramine HCl (Diphenhydramine 50 Mg/Ml Syringe) 12.5 - 25 mg IV Q6H PRN PRN PRN Reason: ITCHING Diphenhydramine HCl (Diphenhydramine 25 Mg Capsule) 12.5 - 25 mg PO Q6H PRN PRN PRN Reason: Pruritis Enoxaparin Sodium (Enoxaparin 40 Mg/0.4 Ml Syringe) 40 mg SC DAILY [facility] Last Admin: 01/03/20 10:40 Dose: 40 mg Documented by: Hydromorphone HCl (Hydromorphone 0.5 Mg/0.5 Ml Syringe) 0.5 - 1 mg IV Q2H PRN PRN PRN Reason: Pain Score 1-10 Hydromorphone HCl (Hydromorphone Restaurant Crew 0.2 Mg/Ml 100 Ml Bag) 20 mg IV UD [facility]; Protocol Last Admin: 01/03/20 18:40 Dose: 20 mg Documented by: Sodium Chloride () 250 mls @ 15 mls/hr IV .[id number] PRN PRN Reason: Saline Flush Sodium Chloride () 250 mls @ 15 mls/hr IV .[id number] PRN PRN Reason: Additional IVPB Infusion Meropenem 2 gm/ Sodium (Chloride) 140 mls @ 97 mls/hr IV Q8 [facility] Last Infusion: 01/04/20 06:41 Dose: Infused Documented by: Sodium Chloride () 1,000 mls @ 150 mls/hr IV .[id number] [facility] Last Infusion: 01/04/20 06:41 Dose: 150 mls/hr Documented by: Loratadine (Loratadine 10 Mg Tablet) 10 mg PO DAILY [facility] Last Admin: 01/03/20 08:34 Dose: Not Given Documented by: Naloxone HCl (Naloxone 0.4 Mg/Ml Syringe) 0.02 mg IV Q1M PRN PRN Reason: RR <10 and pt unresponsive Naproxen (Naproxen 250 Mg Tablet) 250 mg PO DAILY [facility] Last Admin: 01/03/20 08:34 Dose: Not Given Documented by: Ondansetron HCl (Ondansetron 4 Mg/2 Ml Vial) 4 mg IV Q8H PRN PRN PRN Reason: NAUSEA Oxycodone HCl (Oxycodone 5 Mg Tablet) 5 - 10 mg PO Q4H PRN PRN PRN Reason: Pain Score 6-10 Senna/Docusate Sodium (Senna/Docusate Sodium 1 Tablet) 2 tablet PO QHS [facility] Last Admin: 01/03/20 21:37 Dose: Not Given Documented by: Sodium Chloride (0.9% Saline Lock 10 Ml Syringe) 10 - 40 ml IV UD PRN PRN Reason: SALINE FLUSH Last Admin: 01/02/20 17:50 Dose: 10 ml Documented by: Medical Necessity - Tobacco Use Smoking Status: Never smoker Assessment/Plan All Active Problems (Last Reviewed 01/01/20 @ 17:[address] Mirza Jama MD) Pelvic abscess in male (Acute) Acute appendicitis (Acute) Arthritis (Acute) PVC (premature ventricular contraction) (Acute) Cervical radicular pain (Acute) Diverticulitis (Acute) 59-year-old male status post sigmoid colectomy and ileocecectomy 1. The patient is not having any nausea vomiting and his NG output was minimal. I will remove his NG but keep him on sips and chips. The patient's stoma is pink but the only output has been some serosanguineous liquid. No gas or stool. The patient has had adequate urine output and I will DC his Leos. ZIGGY is serosanguineous. Labs are pending. Continue antibiotics and HUMIDIFIER ATTENDANT today. Hope to DC HUMIDIFIER ATTENDANT tomorrow and DC ZIGGY once the patient is back on a diet. Wilman Barajas MD Pager: [facility] [address] [place] [address], [address] [place] [address] Office:
[2020-01-04] MEDS: Enoxaparin 40 MG/0.4 ML Syringe SC (09:40)
[2020-01-04 10:03] LABS: Absolute Lymphocyte Count 2.18 X10^3/uL (0.83-4.51); Absolute Neutrophil Count 11.5 X10^3/uL (2.0-7.7); Basophil# 0.04 X10^3/uL; Basophil% 0.3 % (0-1); Eosinophil# 0.13 X10^3/uL; Eosinophils% 0.9 % (0-5); Hematocrit 36.8 % (40-54); Hemoglobin 11.6 g/dL (13.0-16.5); Lymphocyte # 2.18 X10^3/ul (4.0); Lymphocyte % 14.4 % (19-41); Mean Corp Hgb Conc 31.5 g/dL (32-36); Mean Corpuscular Hgb 28.8 pg (27.0-32.0); Mean Corpuscular Volume 91.3 fL (80-94); Mean Platelet Vol. 9.4 fl (6.2-12.0); Monocyte# 1.32 X10^3/uL; Monocyte% 8.7 % (0-10); NRBC Flagged by Analyzer 0 % (0-5); Neutrophil # 11.46 X10^3/uL (2.7-7.7); Neutrophil % 75.3 % (47-70); Platelet Count 743 K/mm3 (150-450); RBC Distribution Width CV 14.5 % (11.6-14.6); RBC Distribution Width SD 49.6 fl (35.1-43.9); Red Blood Count 4.03 M/mm3 (4.6-6.2); White Blood Count 15.2 K/mm3 (4.4-11.0)
--- NOTE | 2020-01-04 10:39 | PN.ID_ITS ---
Patient Problems: Active and Suspected Problems (Last Reviewed 01/01/20 @ 17:[address] Mirza Jama MD) Pelvic abscess in male (Acute) - Physical Exam Vitals/I&O's: Vital Signs Temp Pulse Resp BP Pulse Ox 98.6 F 68 18 120/61 98 01/04/20 09:23 01/04/20 09:23 01/04/20 09:23 01/04/20 09:23 01/04/20 09:23 Oxygen Flow Rate (L/min) 2 Oxygen Delivery Method [3] Room Air Oxygen Delivery Method [2] Room Air Oxygen Delivery Method [1 ( Room Air Initial Baseline)] Oxygen Delivery Method Nasal Cannula Weight: 112.037 kg Body Mass Index (BMI) 35.4 Intake and Output for Last 24 Hours 01/02/20 01/03/20 01/04/20 23:59 23:59 23:59 Intake Total 2187.51 / 2187.51 5504.17 / 5564.17 1275 / 1275 Output Total 1395 / 1395 1005 / 1355 775 / 775 Balance 792.51 / 792.51 4499.17 / 4209.17 500 / 500 Microbiology Past 72 Hours 01/02/20 10:49 Wound Abcess - Abdominal Gram Stain - Final 01/02/20 10:49 Wound Abcess - Abdominal Wound Culture - Preliminary 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 Laboratory Results 01/02/20 06:35: Diff Path Review Reviewed 01/04/20 09:36: WBC 15.2 H, RBC 4.03 L, Hgb 11.6 L, Hct 36.8 L, MCV 91.3, MCH 28.8, MCHC 31.5 L, RDW Std Deviation 49.6 H, RDW Coeff of Inga 14.5, Plt Count 743 H, MPV 9.4, Immature Gran % (Auto) 0.400, Neut % (Auto) 75.3 H, Lymph % (Auto) 14.4 L, [place] % (Auto) 8.7, Eos % (Auto) 0.9, Baso % (Auto) 0.3, Absolute Neuts (auto) 11.5 H, Absolute Lymphs (auto) 2.18, Nucleated RBC % 0 01/04/20 09:45: Sodium Pending, Potassium Pending, Chloride Pending, Carbon Dioxide Pending, Anion Gap Pending, BUN Pending, Creatinine Pending, Est GFR (MDRD) Af Amer Pending, Est GFR (MDRD) Non-Af Pending, BUN/Creatinine Ratio Pending, Glucose Pending, Calcium Pending Current Medications Acetaminophen (Acetaminophen 325 Mg Tablet) 650 mg PO Q6H PRN PRN PRN Reason: Pain Score 1-10 Bisacodyl (Bisacodyl 10 Mg Suppository) 10 mg RECTAL .X1 PRN PRN PRN Reason: See label comments Bisacodyl (Bisacodyl 5 Mg Tablet) 10 mg PO .X1 PRN PRN PRN Reason: See label comments Diphenhydramine HCl (Diphenhydramine 50 Mg/Ml Syringe) 12.5 - 25 mg IV Q6H PRN PRN PRN Reason: ITCHING Diphenhydramine HCl (Diphenhydramine 25 Mg Capsule) 12.5 - 25 mg PO Q6H PRN PRN PRN Reason: Pruritis Enoxaparin Sodium (Enoxaparin 40 Mg/0.4 Ml Syringe) 40 mg SC DAILY [facility] Last Admin: 01/04/20 09:40 Dose: 40 mg Documented by: Hydromorphone HCl (Hydromorphone 0.5 Mg/0.5 Ml Syringe) 0.5 - 1 mg IV Q2H PRN PRN PRN Reason: Pain Score 1-10 Hydromorphone HCl (Hydromorphone Compliance Analyst 0.2 Mg/Ml 100 Ml Bag) 20 mg IV UD [facility]; Protocol Last Admin: 01/03/20 18:40 Dose: 20 mg Documented by: Sodium Chloride () 250 mls @ 15 mls/hr IV .[id number] PRN PRN Reason: Saline Flush Sodium Chloride () 250 mls @ 15 mls/hr IV .[id number] PRN PRN Reason: Additional IVPB Infusion Meropenem 2 gm/ Sodium (Chloride) 140 mls @ 97 mls/hr IV Q8 [facility] Last Infusion: 01/04/20 06:41 Dose: Infused Documented by: Sodium Chloride () 1,000 mls @ 150 mls/hr IV .Q6H40M [facility] Last Infusion: 01/04/20 06:41 Dose: 150 mls/hr Documented by: Loratadine (Loratadine 10 Mg Tablet) 10 mg PO DAILY [facility] Last Admin: 01/03/20 08:34 Dose: Not Given Documented by: Naloxone HCl (Naloxone 0.4 Mg/Ml Syringe) 0.02 mg IV Q1M PRN PRN Reason: RR <10 and pt unresponsive Naproxen (Naproxen 250 Mg Tablet) 250 mg PO DAILY [facility] Last Admin: 01/03/20 08:34 Dose: Not Given Documented by: Ondansetron HCl (Ondansetron 4 Mg/2 Ml Vial) 4 mg IV Q8H PRN PRN PRN Reason: NAUSEA Oxycodone HCl (Oxycodone 5 Mg Tablet) 5 - 10 mg PO Q4H PRN PRN PRN Reason: Pain Score 6-10 Senna/Docusate Sodium (Senna/Docusate Sodium 1 Tablet) 2 tablet PO QHS [facility] Last Admin: 01/03/20 21:37 Dose: Not Given Documented by: Sodium Chloride (0.9% Saline Lock 10 Ml Syringe) 10 - 40 ml IV UD PRN PRN Reason: SALINE FLUSH Last Admin: 01/02/20 17:50 Dose: 10 ml Documented by: Medical Necessity - Tobacco Use Smoking Status: Never smoker Route of nutrition/ use of supplements: [] Nutritional Intake: [] IV Site: [] Leos Catheter: [] - Assessment/Plan Antibiotics: [] Assessment/Plan: [] Active and Suspected Problems (Last Reviewed 01/01/20 @ 17:[address] Mirza Jama MD) Pelvic abscess in male (Acute) Now s/p 01/02/20 R hemicolectomy, sigmoid colectomy, and colostomy placement by Dr. Jama. 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 Limited options, spoke with micro lab, additional panel of testing will be done tomorrow. Requested sendout test for Avycaz. In the meantime, it was only rare growth and wbc improving. Will add high dose cipro as it did have intermediate susceptibility to that. Will follow
[2020-01-04 10:45] LABS: Anion Gap 5 (5-15); BUN 18 mg/dL (7-18); BUN/Creat Ratio 26.5 RATIO (10-20); Calcium,Total 8.2 mg/dL (8.5-10.1); Chloride 104 mmol/L (98-107); Creatinine, Serum 0.68 mg/dL (0.70-1.30); EST Glomerular Filtration Rate 126 mL/min (>60); Est Glom Filt Rate - Afr Amer 153 mL/min (>60); Estimated Creatinine Clearance 117.79 ml/min; Glucose 84 mg/dL (74-106); Potassium 3.9 mmol/L (3.5-5.1); Sodium Level 140 mmol/L (136-145)
[2020-01-04] MEDS: Ciprofloxacin 400 MG/200 ML BAG 200 MG IV ×2 (11:58→21:00)
[2020-01-04] MEDS: 0.9% Saline Lock 10 ML Syringe IV (21:00)
[2020-01-04] MEDS: Senna/Docusate Sodium 1 Tablet 2 TABLET PO (21:02)
[2020-01-05] VITALS (9 sets, daily range): BP systolic 126–143; BP diastolic 63–78; PULSE 71–80; RESP 16–18; TEMP 36.5–37.2; O2SAT 96–99
[2020-01-05] MEDS: Ciprofloxacin 400 MG/200 ML BAG 200 MG IV ×3 (05:22→23:24)
[2020-01-05 06:07] LABS: Absolute Lymphocyte Count 1.66 X10^3/uL (0.83-4.51); Absolute Neutrophil Count 10.1 X10^3/uL (2.0-7.7); Basophil# 0.06 X10^3/uL; Basophil% 0.5 % (0-1); Eosinophil# 0.16 X10^3/uL; Eosinophils% 1.2 % (0-5); Hematocrit 36.7 % (40-54); Hemoglobin 11.4 g/dL (13.0-16.5); Lymphocyte # 1.66 X10^3/ul (4.0); Lymphocyte % 12.6 % (19-41); Mean Corp Hgb Conc 31.1 g/dL (32-36); Mean Corpuscular Hgb 28.1 pg (27.0-32.0); Mean Corpuscular Volume 90.4 fL (80-94); Mean Platelet Vol. 9.3 fl (6.2-12.0); Monocyte% 9.1 % (0-10); NRBC Flagged by Analyzer 0 % (0-5); Neutrophil % 76.3 % (47-70); Platelet Count 712 K/mm3 (150-450); RBC Distribution Width CV 14.5 % (11.6-14.6); RBC Distribution Width SD 48.8 fl (35.1-43.9); Red Blood Count 4.06 M/mm3 (4.6-6.2); White Blood Count 13.2 K/mm3 (4.4-11.0)
[2020-01-05] MEDS: 0.9% Normal Saline 1,000 ML 1450 ML IV (06:29)
[2020-01-05 06:35] LABS: Anion Gap 7 (5-15); BUN 12 mg/dL (7-18); BUN/Creat Ratio 19.3 RATIO (10-20); Calcium,Total 7.8 mg/dL (8.5-10.1); Chloride 101 mmol/L (98-107); Creatinine, Serum 0.62 mg/dL (0.70-1.30); EST Glomerular Filtration Rate 140 mL/min (>60); Est Glom Filt Rate - Afr Amer 169 mL/min (>60); Estimated Creatinine Clearance 129.19 ml/min; Glucose 80 mg/dL (74-106); Potassium 3.8 mmol/L (3.5-5.1); Sodium Level 136 mmol/L (136-145)
--- NOTE | 2020-01-05 07:06 | PN.SURG_ITS ---
Patient Problems: Active and Suspected Problems (Last Reviewed 01/01/20 @ 17:[address] Mirza Jama MD) Pelvic abscess in male (Acute) Subjective: Patient had some blood clots from his colostomy bag yesterday. Overnight started passing gas. The patient's not having any nausea or vomiting. His abdominal pain was well controlled and he did not need his HOP TRAINER overnight. He did say that his pain yesterday was high enough that he was not able to get up and walk around. - Physical Exam Vitals/I&O's: Vital Signs Temp Pulse Resp BP Pulse Ox 98.1 F 77 18 141/78 H 98 01/05/20 05:17 01/05/20 05:17 01/05/20 05:17 01/05/20 05:17 01/05/20 05:17 Oxygen Flow Rate (L/min) 2 Oxygen Delivery Method [3] Room Air Oxygen Delivery Method [2] Room Air Oxygen Delivery Method [1 ( Room Air Initial Baseline)] Oxygen Delivery Method Nasal Cannula Weight: 246 lb 15.989 oz Body Mass Index (BMI) 35.4 Intake and Output for Last 24 Hours 01/03/20 01/04/20 01/05/20 23:59 23:59 23:59 Intake Total 5504.17 / 5564.17 3875.0 / 3875.0 1087.5 / 1087.5 Output Total 1005 / 1355 2445 / 2445 Balance 4499.17 / 4209.17 1430.0 / 1430.0 1077.5 / 1077.5 General: Alert, Oriented x3 Lungs: Normal air movement Cardiovascular: Regular rate, Regular Rhythm Abdomen: Soft, Non-Distended, Tender Microbiology Past 72 Hours 01/02/20 10:49 Wound Abcess - Abdominal Gram Stain - Final 01/02/20 10:49 Wound Abcess - Abdominal Wound Culture - Preliminary 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 Laboratory Results 01/04/20 09:36: WBC 15.2 H, RBC 4.03 L, Hgb 11.6 L, Hct 36.8 L, MCV 91.3, MCH 28.8, MCHC 31.5 L, RDW Std Deviation 49.6 H, RDW Coeff of Inga 14.5, Plt Count 743 H, MPV 9.4, Immature Gran % (Auto) 0.400, Neut % (Auto) 75.3 H, Lymph % (Auto) 14.4 L, [place] % (Auto) 8.7, Eos % (Auto) 0.9, Baso % (Auto) 0.3, Absolute Neuts (auto) 11.5 H, Absolute Lymphs (auto) 2.18, Nucleated RBC % 0 01/04/20 09:45: Sodium 140, Potassium 3.9, Chloride 104, Carbon Dioxide 31.0, Anion Gap 5, BUN 18, Creatinine 0.68 L, Estim Creat Clear Calc 117.79, Est GFR (MDRD) Af Amer 153, Est GFR (MDRD) Non-Af 126, BUN/Creatinine Ratio 26.5 H, Glucose 84, Calcium 8.2 L 01/05/20 05:00: WBC 13.2 H, RBC 4.06 L, Hgb 11.4 L, Hct 36.7 L, MCV 90.4, MCH 28.1, MCHC 31.1 L, RDW Std Deviation 48.8 H, RDW Coeff of Inga 14.5, Plt Count 712 H, MPV 9.3, Immature Gran % (Auto) 0.300, Neut % (Auto) 76.3 H, Lymph % (Auto) 12.6 L, [place] % (Auto) 9.1, Eos % (Auto) 1.2, Baso % (Auto) 0.5, Absolute Neuts (auto) 10.1 H, Absolute Lymphs (auto) 1.66, Nucleated RBC % 0 01/05/20 05:00: Sodium 136, Potassium 3.8, Chloride 101, Carbon Dioxide 28.0, Anion Gap 7, BUN 12, Creatinine 0.62 L, Estim Creat Clear Calc 129.19, Est GFR (MDRD) Af Amer 169, Est GFR (MDRD) Non-Af 140, BUN/Creatinine Ratio 19.3, Glucose 80, Calcium 7.8 L Current Medications Acetaminophen (Acetaminophen 325 Mg Tablet) 650 mg PO Q6H PRN PRN PRN Reason: Pain Score 1-10 Bisacodyl (Bisacodyl 10 Mg Suppository) 10 mg RECTAL .X1 PRN PRN PRN Reason: See label comments Bisacodyl (Bisacodyl 5 Mg Tablet) 10 mg PO .X1 PRN PRN PRN Reason: See label comments Enoxaparin Sodium (Enoxaparin 40 Mg/0.4 Ml Syringe) 40 mg SC DAILY [facility] Last Admin: 01/04/20 09:40 Dose: 40 mg Documented by: Sodium Chloride () 250 mls @ 15 mls/hr IV .[id number] PRN PRN Reason: Saline Flush Sodium Chloride () 250 mls @ 15 mls/hr IV .[id number] PRN PRN Reason: Additional IVPB Infusion Meropenem 2 gm/ Sodium (Chloride) 140 mls @ 97 mls/hr IV Q8 [facility] Last Admin: 01/05/20 06:30 Dose: 97 mls/hr Documented by: Ciprofloxacin (Cipro) 400 mg in 200 mls @ 200 mls/hr IV Q8 [facility] Last Infusion: 01/05/20 06:30 Dose: Infused Documented by: Loratadine (Loratadine 10 Mg Tablet) 10 mg PO DAILY [facility] Last Admin: 01/04/20 10:44 Dose: Not Given Documented by: Naproxen (Naproxen 250 Mg Tablet) 250 mg PO DAILY [facility] Last Admin: 01/04/20 10:44 Dose: Not Given Documented by: Ondansetron HCl (Ondansetron 4 Mg/2 Ml Vial) 4 mg IV Q8H PRN PRN PRN Reason: NAUSEA Oxycodone HCl (Oxycodone 5 Mg Tablet) 5 - 10 mg PO Q4H PRN PRN PRN Reason: Pain Score 6-10 Senna/Docusate Sodium (Senna/Docusate Sodium 1 Tablet) 2 tablet PO QHS [facility] Last Admin: 01/04/20 21:02 Dose: 2 tablet Documented by: Sodium Chloride (0.9% Saline Lock 10 Ml Syringe) 10 - 40 ml IV UD PRN PRN Reason: SALINE FLUSH Last Admin: 01/04/20 21:00 Dose: 10 ml Documented by: Medical Necessity - Tobacco Use Smoking Status: Never smoker Assessment/Plan All Active Problems (Last Reviewed 01/01/20 @ 17:[address] Mirza Jama MD) Pelvic abscess in male (Acute) Acute appendicitis (Acute) Arthritis (Acute) PVC (premature ventricular contraction) (Acute) Cervical radicular pain (Acute) Diverticulitis (Acute) 59-year-old male status post sigmoid colectomy and ileocecectomy 1. Patient had blood clots per stoma yesterday but his hemoglobin is stable. He is passing flatus through the colostomy. We will start clear liquid diet today. ZIGGY is serous and I will remove that tomorrow as long as it continues to be serious after diet is initiated. I will stop his HOP TRAINER and start as needed medications. Patient has made good urine output I will stop IV fluids. 2. Patient is on a PPI and Lovenox. I did encourage ambulation and incentive spirometer. Wilman Barajas MD Pager: [facility] [address] [place] [address], [address] [place] [address] Office:
[2020-01-05] MEDS: Acetaminophen 325 MG Tablet 650 MG PO ×2 (09:55→16:05)
[2020-01-05] MEDS: Pantoprazole Sodium 20 MG Tablet PO ×2 (09:55→21:20)
[2020-01-05] MEDS: Enoxaparin 40 MG/0.4 ML Syringe SC (09:55)
[2020-01-05] MEDS: Senna/Docusate Sodium 1 Tablet 2 TABLET PO (21:17)
[2020-01-06 04:17] VITALS: BP 149/58; PULSE 74; RESP 18; TEMP 36.9; O2SAT 97
[2020-01-06] MEDS: Acetaminophen 325 MG Tablet 650 MG PO ×2 (05:37→16:15)
[2020-01-06 06:36] LABS: Absolute Lymphocyte Count 1.56 X10^3/uL (0.83-4.51); Absolute Neutrophil Count 8.5 X10^3/uL (2.0-7.7); Basophil# 0.05 X10^3/uL; Basophil% 0.4 % (0-1); Eosinophil# 0.14 X10^3/uL; Eosinophils% 1.2 % (0-5); Hematocrit 37.9 % (40-54); Lymphocyte # 1.56 X10^3/ul (4.0); Lymphocyte % 13.8 % (19-41); Mean Corp Hgb Conc 31.7 g/dL (32-36); Mean Corpuscular Hgb 28.2 pg (27.0-32.0); Mean Corpuscular Volume 89.2 fL (80-94); Mean Platelet Vol. 9.1 fl (6.2-12.0); Monocyte# 0.99 X10^3/uL; Monocyte% 8.7 % (0-10); NRBC Flagged by Analyzer 0 % (0-5); Neutrophil % 75.2 % (47-70); POSITIVE COUNT YES; RBC Distribution Width SD 45.9 fl (35.1-43.9); Red Blood Count 4.25 M/mm3 (4.6-6.2); White Blood Count 11.3 K/mm3 (4.4-11.0)
[2020-01-06 06:37] LABS: Differential Indicated SCAN CRITERIA MET; Platelet Count 808 K/mm3 (150-450)
[2020-01-06 07:01] LABS: Anion Gap 7 (5-15); BUN 12 mg/dL (7-18); BUN/Creat Ratio 17.7 RATIO (10-20); Calcium,Total 8.6 mg/dL (8.5-10.1); Chloride 100 mmol/L (98-107); Creatinine, Serum 0.68 mg/dL (0.70-1.30); EST Glomerular Filtration Rate 127 mL/min (>60); Est Glom Filt Rate - Afr Amer 153 mL/min (>60); Estimated Creatinine Clearance 117.79 ml/min; Glucose 105 mg/dL (74-106); Potassium 3.6 mmol/L (3.5-5.1); Sodium Level 136 mmol/L (136-145)
[2020-01-06 07:13] LABS: Differential Comment SCANNED
[2020-01-06 07:14] LABS: Platelet Estimate MOD INC (ADEQ)
[2020-01-06 07:21] VITALS: O2SAT 94
--- NOTE | 2020-01-06 07:21 | NURSING ---
0650 01/05. this RN called to pharmacy asking to send up Cipro as it is not in the med rooms. at this time (721, Cipro has not been sent up)
--- NOTE | 2020-01-06 07:44 | PCM.PN.SRG ---
Patient Problems: Active and Suspected Problems (Last Reviewed 01/01/20 @ 17:[address] Mirza Jama MD) Pelvic abscess in male (Acute) Subjective: Patient is doing well with no fevers overnight. His abdominal pain is well controlled and he only required Tylenol for pain overnight. He is passing stool and tolerating clear liquid diet - Physical Exam Vitals/I&O's: Vital Signs Temp Pulse Resp BP Pulse Ox 98.4 F 74 18 149/58 H 97 01/06/20 04:17 01/06/20 04:17 01/06/20 04:17 01/06/20 04:17 01/06/20 04:17 Oxygen Flow Rate (L/min) 2 Oxygen Delivery Method [3] Room Air Oxygen Delivery Method [2] Room Air Oxygen Delivery Method [1 ( Room Air Initial Baseline)] Oxygen Delivery Method Room Air Weight: 246 lb 15.989 oz Body Mass Index (BMI) 35.4 Intake and Output for Last 24 Hours 01/04/20 01/05/20 01/06/20 23:59 23:59 23:59 Intake Total 3875.0 / 3875.0 3958.75 / 3958.75 1193.75 / 1193.75 Output Total 2445 / 2445 3483 / 3483 1315 / 1315 Balance 1430.0 / 1430.0 475.75 / 475.75 -121.25 / -121.25 General: Alert, Oriented x3 Lungs: Normal air movement Abdomen: Soft, Non Tender Microbiology Past 72 Hours 01/02/20 10:49 Wound Abcess - Abdominal Gram Stain - Final 01/02/20 10:49 Wound Abcess - Abdominal Wound Culture - Preliminary 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 Laboratory Results 01/06/20 06:08: WBC 11.3 H, RBC 4.25 L, Hgb 12.0 L, Hct 37.9 L, MCV 89.2, MCH 28.2, MCHC 31.7 L, RDW Std Deviation 45.9 H, RDW Coeff of Inga 14.0, Plt Count 808 H*, MPV 9.1, Immature Gran % (Auto) 0.700, Neut % (Auto) 75.2 H, Lymph % (Auto) 13.8 L, [place] % (Auto) 8.7, Eos % (Auto) 1.2, Baso % (Auto) 0.4, Absolute Neuts (auto) 8.5 H, Absolute Lymphs (auto) 1.56, Nucleated RBC % 0, Differential Comment SCANNED, Diff Path Review May foll, Platelet Estimate MOD INC 01/06/20 06:08: Sodium 136, Potassium 3.6, Chloride 100, Carbon Dioxide 29.0, Anion Gap 7, BUN 12, Creatinine 0.68 L, Estim Creat Clear Calc 117.79, Est GFR (MDRD) Af Amer 153, Est GFR (MDRD) Non-Af 127, BUN/Creatinine Ratio 17.7, Glucose 105, Calcium 8.6 Current Medications Acetaminophen (Acetaminophen 325 Mg Tablet) 650 mg PO Q6H PRN PRN PRN Reason: Pain Score 1-10 Last Admin: 01/06/20 05:37 Dose: 650 mg Documented by: Bisacodyl (Bisacodyl 10 Mg Suppository) 10 mg RECTAL .X1 PRN PRN PRN Reason: See label comments Bisacodyl (Bisacodyl 5 Mg Tablet) 10 mg PO .X1 PRN PRN PRN Reason: See label comments Enoxaparin Sodium (Enoxaparin 40 Mg/0.4 Ml Syringe) 40 mg SC DAILY [facility] Last Admin: 01/05/20 09:55 Dose: 40 mg Documented by: Sodium Chloride () 250 mls @ 15 mls/hr IV .[id number] PRN PRN Reason: Saline Flush Last Infusion: 01/06/20 07:18 Dose: 15 mls/hr Documented by: Sodium Chloride () 250 mls @ 15 mls/hr IV .[id number] PRN PRN Reason: Additional IVPB Infusion Meropenem 2 gm/ Sodium (Chloride) 140 mls @ 97 mls/hr IV Q8 [facility] Last Infusion: 01/06/20 07:18 Dose: Infused Documented by: Ciprofloxacin (Cipro) 400 mg in 200 mls @ 200 mls/hr IV Q8 [facility] Last Infusion: 01/06/20 01:54 Dose: Infused Documented by: Loratadine (Loratadine 10 Mg Tablet) 10 mg PO DAILY [facility] Last Admin: 01/05/20 09:55 Dose: Not Given Documented by: Morphine Sulfate (Morphine 2 Mg/Ml Syringe) 2 - 4 mg IV Q2H PRN PRN PRN Reason: Pain Score 4-10 Morphine Sulfate (Morphine 4 Mg/Ml Syringe) 2 - 4 mg IV Q2H PRN PRN PRN Reason: Pain Score 4-10 Naproxen (Naproxen 250 Mg Tablet) 250 mg PO DAILY [facility] Last Admin: 01/05/20 09:55 Dose: Not Given Documented by: Ondansetron HCl (Ondansetron 4 Mg/2 Ml Vial) 4 mg IV Q8H PRN PRN PRN Reason: NAUSEA Oxycodone HCl (Oxycodone 5 Mg Tablet) 5 - 10 mg PO Q4H PRN PRN PRN Reason: Pain Score 6-10 Pantoprazole Sodium (Pantoprazole Sodium 20 Mg Tablet) 20 mg PO BID [facility] Last Admin: 01/05/20 21:20 Dose: 20 mg Documented by: Senna/Docusate Sodium (Senna/Docusate Sodium 1 Tablet) 2 tablet PO QHS [facility] Last Admin: 01/05/20 21:17 Dose: 2 tablet Documented by: Sodium Chloride (0.9% Saline Lock 10 Ml Syringe) 10 - 40 ml IV UD PRN PRN Reason: SALINE FLUSH Last Admin: 01/04/20 21:00 Dose: 10 ml Documented by: Medical Necessity - Tobacco Use Smoking Status: Never smoker Assessment/Plan All Active Problems (Last Reviewed 01/01/20 @ 17:[address] Mirza Jama MD) Pelvic abscess in male (Acute) Acute appendicitis (Acute) Arthritis (Acute) PVC (premature ventricular contraction) (Acute) Cervical radicular pain (Acute) Diverticulitis (Acute) 59-year-old male status post sigmoid colectomy and ileocecectomy 1. Patient seems to be doing well. He tolerated clears and is having now stool coming out of his colostomy. Patient is having colostomy teaching today and I will remove his drain today. I will advance him to a regular diet. Likely DC later today versus tomorrow. Discharge antibiotic recommendations per ID will be appreciated. Wilman Barajas MD Pager: [facility] [address] [place] [address] [address] [place] [phone] Office:
[2020-01-06 08:00] VITALS: BP 128/68; PULSE 69; RESP 18; TEMP 37.1; O2SAT 98
[2020-01-06] MEDS: Ciprofloxacin 400 MG/200 ML BAG 200 MG IV (08:00)
[2020-01-06] MEDS: Loratadine 10 MG Tablet PO (10:34)
[2020-01-06] MEDS: Enoxaparin 40 MG/0.4 ML Syringe SC (10:34)
[2020-01-06] MEDS: Pantoprazole Sodium 20 MG Tablet PO ×2 (10:35→21:00)
[2020-01-06] MEDS: Naproxen 250 MG Tablet PO (10:35)
--- NOTE | 2020-01-06 11:03 | PCM.PN.BLA ---
Progress Note Removed ZIGGY drain. Tip intact. Patient tolerated well. Gauze dressing applied. STROKE Vital Signs/Narrative: Vital Signs Temp Pulse Resp BP Pulse Ox 01/06/20 08:00 98.8 F 69 18 128/68 H 98 01/06/20 07:21 94
--- NOTE | 2020-01-06 13:00 | NURSING ---
In to do ostomy teaching with patient and . removed the colostomy appliance. there was a small amount of unformed brown stool in the appliance. pt had just started on a full liquid diet this am. Pt states he was only able to eat about half of his oatmeal. ZAN Estrada had been in earlier to remove the ZIGGY drain. dressing is dry and intact to the site. midline abdominal incision is well approximated with steri strips in place. removed the ostomy appliance. there are a few small blisters noted to the lateral edge of the flange. some mild redness noted medially. the remaining peristomal skin is intact. stoma is moist, beefy red, and measures approx 2 1/2 in diameter. cleansed peristomal skin with warm water. pat dry. cut opening on flange to size. applied a small amount of stoma paste and placed the flange around the stoma. snapped on the pouch. had reviewed the teaching booklet with patient prior. pt and given a step by step appliance change instruction sheet. plan is for pt to go home with [facility]. supplies will be ordered through [employer]. Pt and deny further questions at this time. will continue with education as needed.
[2020-01-06 13:50] LABS: Pathologist Review Reviewed
[2020-01-06 14:05] LABS: Pathologist Review Reviewed
[2020-01-06] MEDS: LORazepam 1 MG Tablet PO ×2 (14:59→21:09)
--- NOTE | 2020-01-06 15:49 | NURSING ---
Ostomy supplies ordered through [facility].
--- NOTE | 2020-01-06 16:08 | CHAPLAIN ---
Type of Pastoral Visit _x__ Initial Visit ___ Follow-up Visit ___ On-call Visit ___ General Patient Visit ___ Spiritual Assessment ___ Family Conference ___ Bereavement ___ Rapid Response ___ Code Blue ___ Other (describe below) Pastoral Care Referral From _x__ Patient ___ Family ___ Nurse ___ Physician ___ Supervisor [employer] ___ Director Of Purchasing ___ Other (describe below) Sacrament/Intervention _x__ Active listening ___ Anointing ___ Yarsani ___ Bereavement ___ Communion ___ Estela exploration ___ _x__ Life review _x__ Prayer ___ Reconciliation ___ Sacrament of Sick _x__ Supportive presence ___ Wedding ___ Other (describe below) Pastoral Comments patient is concerned for a son that is hospitalized in [place]; having self and son both in hospital has become too much to handle in words of patient; pt is having new realization of support from friends at this time but still wanting to help my son and I can't; emotional and spiritual support welcomed and given; presence and prayer
--- NOTE | 2020-01-06 17:28 | PCM.PN.ID ---
Patient Problems: Active and Suspected Problems (Last Reviewed 01/01/20 @ 17:[address] Mirza Jama MD) Pelvic abscess in male (Acute) Subjective: Soft diet today, no fever, no nausea - Physical Exam Vitals/I&O's: Vital Signs Temp Pulse Resp BP Pulse Ox 98.8 F 69 18 128/68 H 98 01/06/20 08:00 01/06/20 08:00 01/06/20 08:00 01/06/20 08:00 01/06/20 08:00 Oxygen Flow Rate (L/min) 2 Oxygen Delivery Method [3] Room Air Oxygen Delivery Method [2] Room Air Oxygen Delivery Method [1 ( Room Air Initial Baseline)] Oxygen Delivery Method Room Air Weight: 112.037 kg Body Mass Index (BMI) 35.4 Intake and Output for Last 24 Hours 01/04/20 01/05/20 01/06/20 23:59 23:59 23:59 Intake Total 3875.0 / 3875.0 3958.75 / 3958.75 2103.75 / 2103.75 Output Total 2445 / 2445 3483 / 3483 2465 / 2465 Balance 1430.0 / 1430.0 475.75 / 475.75 -361.25 / -361.25 General: Alert, Cooperative, No apparent distress Lungs: Clear to auscultation, Normal air movement Cardiovascular: Regular rate, Regular Rhythm Abdomen: Soft, Non Tender, Non-Distended, - - ostomy with stool output Skin: No rashes Microbiology Past 72 Hours 01/02/20 10:49 Wound Abcess - Abdominal Gram Stain - Final 01/02/20 10:49 Wound Abcess - Abdominal Wound Culture - Preliminary 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 Laboratory Results 01/03/20 06:55: Diff Path Review Reviewed 01/06/20 06:08: WBC 11.3 H, RBC 4.25 L, Hgb 12.0 L, Hct 37.9 L, MCV 89.2, MCH 28.2, MCHC 31.7 L, RDW Std Deviation 45.9 H, RDW Coeff of Inga 14.0, Plt Count 808 H*, MPV 9.1, Immature Gran % (Auto) 0.700, Neut % (Auto) 75.2 H, Lymph % (Auto) 13.8 L, Mcpherson % (Auto) 8.7, Eos % (Auto) 1.2, Baso % (Auto) 0.4, Absolute Neuts (auto) 8.5 H, Absolute Lymphs (auto) 1.56, Nucleated RBC % 0, Differential Comment SCANNED, Diff Path Review Reviewed, Platelet Estimate MOD INC 01/06/20 06:08: Sodium 136, Potassium 3.6, Chloride 100, Carbon Dioxide 29.0, Anion Gap 7, BUN 12, Creatinine 0.68 L, Estim Creat Clear Calc 117.79, Est GFR (MDRD) Af Amer 153, Est GFR (MDRD) Non-Af 127, BUN/Creatinine Ratio 17.7, Glucose 105, Calcium 8.6 Current Medications Acetaminophen (Acetaminophen 325 Mg Tablet) 650 mg PO Q6H PRN PRN PRN Reason: Pain Score 1-10 Last Admin: 01/06/20 16:15 Dose: 650 mg Documented by: Bisacodyl (Bisacodyl 10 Mg Suppository) 10 mg RECTAL .X1 PRN PRN PRN Reason: See label comments Bisacodyl (Bisacodyl 5 Mg Tablet) 10 mg PO .X1 PRN PRN PRN Reason: See label comments Enoxaparin Sodium (Enoxaparin 40 Mg/0.4 Ml Syringe) 40 mg SC DAILY [facility] Last Admin: 01/06/20 10:34 Dose: 40 mg Documented by: Sodium Chloride () 250 mls @ 15 mls/hr IV .[id number] PRN PRN Reason: Saline Flush Last Infusion: 01/06/20 07:18 Dose: 15 mls/hr Documented by: Sodium Chloride () 250 mls @ 15 mls/hr IV .[id number] PRN PRN Reason: Additional IVPB Infusion Meropenem 2 gm/ Sodium (Chloride) 140 mls @ 97 mls/hr IV Q8 [facility] Last Admin: 01/06/20 14:21 Dose: 97 mls/hr Documented by: Loratadine (Loratadine 10 Mg Tablet) 10 mg PO DAILY [facility] Last Admin: 01/06/20 10:34 Dose: 10 mg Documented by: Lorazepam (Lorazepam 1 Mg Tablet) 1 mg PO Q6H PRN PRN PRN Reason: ANXIETY Last Admin: 01/06/20 14:59 Dose: 1 mg Documented by: Morphine Sulfate (Morphine 2 Mg/Ml Syringe) 2 - 4 mg IV Q2H PRN PRN PRN Reason: Pain Score 4-10 Morphine Sulfate (Morphine 4 Mg/Ml Syringe) 2 - 4 mg IV Q2H PRN PRN PRN Reason: Pain Score 4-10 Naproxen (Naproxen 250 Mg Tablet) 250 mg PO DAILY [facility] Last Admin: 01/06/20 10:35 Dose: 250 mg Documented by: Ondansetron HCl (Ondansetron 4 Mg/2 Ml Vial) 4 mg IV Q8H PRN PRN PRN Reason: NAUSEA Oxycodone HCl (Oxycodone 5 Mg Tablet) 5 - 10 mg PO Q4H PRN PRN PRN Reason: Pain Score 6-10 Pantoprazole Sodium (Pantoprazole Sodium 20 Mg Tablet) 20 mg PO BID [facility] Last Admin: 01/06/20 10:35 Dose: 20 mg Documented by: Senna/Docusate Sodium (Senna/Docusate Sodium 1 Tablet) 2 tablet PO QHS [facility] Last Admin: 01/05/20 21:17 Dose: 2 tablet Documented by: Sodium Chloride (0.9% Saline Lock 10 Ml Syringe) 10 - 40 ml IV UD PRN PRN Reason: SALINE FLUSH Last Admin: 01/04/20 21:00 Dose: 10 ml Documented by: Medical Necessity - Tobacco Use Smoking Status: Never smoker Route of nutrition/ use of supplements: [] Nutritional Intake: [] IV Site: [] Elos Catheter: [] - Assessment/Plan Antibiotics: [] Assessment/Plan: [] Active and Suspected Problems (Last Reviewed 01/01/20 @ 17:[address] Mirza Jama MD) Pelvic abscess in male (Acute) Now s/p 01/02/20 R hemicolectomy, sigmoid colectomy, and colostomy placement by Dr. Jama. 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 Will stop cipro. Wbc nearly normal, no fever, overall much improved. Plan on stopping abx tomorrow. Will follow, d/w spring encaser
[2020-01-06 19:30] VITALS: BP 158/74; PULSE 80; RESP 18; TEMP 36.1; O2SAT 95
[2020-01-06] MEDS: Senna/Docusate Sodium 1 Tablet 2 TABLET PO (21:00)
[2020-01-07] MEDS: LORazepam 1 MG Tablet PO (02:45)
[2020-01-07] MEDS: Acetaminophen 325 MG Tablet 650 MG PO (02:45)
[2020-01-07 02:59] VITALS: BP 118/71; PULSE 81; RESP 18; TEMP 36.8; O2SAT 97
--- NOTE | 2020-01-07 07:22 | PCM.DC ---
- Discharge Diagnoses Current Active Problems: Current Active and Chronic Problems (Last Reviewed 01/01/20 @ 17:[address] Mirza Jama MD) Pelvic abscess in male (Acute) You will use the following diet at home:: Regular Your food should be the consistency of: Regular Discharge Activity: May Shower Lifting Restrictions: 20 lbs for 4 weeks Call your doctor if your incision/area has: Continuous Slow Oozing, Sudden Increased Bleeding, Increased Pain/ Swelling, Increased Redness, Foul Smelling Discharge, Swelling at the incision site Call your doctor if you observe: Fever of 101 or Higher Instructions: Caring for a Drainage Tube, Caring for Your Vernon Doyle Drainage Tube Allergies/Adverse Reactions: Allergies No Known Allergies Allergy (Verified 01/01/20 13:22) Medications to take at Discharge Loratadine 10 mg PO DAILY PRN PRN 04/23/19 Naproxen Sodium [Aleve] 220 mg PO DAILY 04/23/19 Docusate Sodium [Colace] 100 mg PO BID 01/01/20 Oxycodone HCl 5 - 10 mg PO Q6H PRN PRN 01/01/20 Acetaminophen [Tylenol Tablet] 650 mg PO Q6H PRN PRN tablet 01/07/20 Lorazepam [Ativan] 1 mg PO Q6H PRN PRN 3 Days #10 tablet 01/07/20 The following prescriptions were given: Lorazepam [Ativan] 1 mg PO Q6H PRN PRN 3 Days #10 tablet PRN Reason: Anxiety Transmission Status: Sent to [facility] Test Results: Test results from this visit will be discussed in further detail at your follow-up appointment, if applicable. Please Follow Up With: Mirza Jama MD When: Please call to schedule 1 week follow up appointment. [phone]
--- NOTE | 2020-01-07 07:24 | DS.PCM_ITS ---
Discharge Date and Diagnosis - Problem List Patient Problems: Active and Suspected Problems (Last Reviewed 01/01/20 @ 17:[address] Mirza Jama MD) Pelvic abscess in male (Acute) Date of Admission: 01/01/20 Date of Discharge: 01/07/20 - Primary Discharge Diagnosis Acute Problems: Active Problems (Last Reviewed 01/01/20 @ 17:[address] Mirza Jama MD) Pelvic abscess in male (Acute) Hospital Course and Treatment Imaging Results: Clinical Impression(s) from Imaging Studies Abdomen/Pelvis CT 01/01/20 14:07 IMPRESSION: Recent appendectomy with 2 abscesses, one at the site of the appendectomy and another in the right paracolic gutter just inferior to the liver. Electronically Signed: Lucio Sun MD at 16:59 EDT Tel , Service support , Abscess Drainage 01/02/20 11:00 IMPRESSION: 1. CT directed drainage of a fluid collection using CT image guidance and image documentation as described. 2. Conscious Sedation protocol utilized with independent monitoring Electronically Signed: Mahin Sevilla, at 11:11 EDT , Service support , Consultations 01/02/20 16:16 Consult: Onc/Wound/gill box tender Routine Comment: Infectious disease Operations: - - Colectomy and end colostomy Summary of Care Provided: The patient is a 59 year old M presented with abdominal pain after his appendectomy. CT scan revealed fluid collection in his abdomen. Dr. Jama took him for exploratory laparotomy with drainage of the fluid and right hemicolectomy and sigmoid colectomy with colostomy. After the patient was passing flatus through his colostomy his ZIGGY was removed and he was slowly started on a diet. Once he is tolerated diet he was discharged home in stable condition. He will follow-up with Dr. Jama. Patient Problems: Active and Suspected Problems (Last Reviewed 01/01/20 @ 17:[address] Mirza Jama MD) Pelvic abscess in male (Acute) - Physical Exam Vitals/I&O's: Vital Signs Temp Pulse Resp BP Pulse Ox 98.2 F 81 18 118/71 97 01/07/20 02:59 01/07/20 02:59 01/07/20 02:59 01/07/20 02:59 01/07/20 02:59 Oxygen Flow Rate (L/min) 2 Oxygen Delivery Method [3] Room Air Oxygen Delivery Method [2] Room Air Oxygen Delivery Method [1 ( Room Air Initial Baseline)] Oxygen Delivery Method Room Air Weight: 246 lb 15.989 oz Body Mass Index (BMI) 35.4 Intake and Output for Last 24 Hours 01/05/20 01/06/20 01/07/20 23:59 23:59 23:59 Intake Total 3958.75 / 3958.75 3038.75 / 3388.75 350 / 350 Output Total 3483 / 3483 3145 / 3570 425 / 425 Balance 475.75 / 475.75 -106.25 / -181.25 -75 / -75 Microbiology Past 72 Hours 01/02/20 10:49 Wound Abcess - Abdominal Gram Stain - Final 01/02/20 10:49 Wound Abcess - Abdominal Wound Culture - Preliminary 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 Laboratory Results 01/03/20 06:55: Diff Path Review Reviewed 01/06/20 06:08: Diff Path Review Reviewed Current Medications Acetaminophen (Acetaminophen 325 Mg Tablet) 650 mg PO Q6H PRN PRN PRN Reason: Pain Score 1-10 Last Admin: 01/07/20 02:45 Dose: 650 mg Documented by: Bisacodyl (Bisacodyl 10 Mg Suppository) 10 mg RECTAL .X1 PRN PRN PRN Reason: See label comments Bisacodyl (Bisacodyl 5 Mg Tablet) 10 mg PO .X1 PRN PRN PRN Reason: See label comments Enoxaparin Sodium (Enoxaparin 40 Mg/0.4 Ml Syringe) 40 mg SC DAILY [facility] Last Admin: 01/06/20 10:34 Dose: 40 mg Documented by: Sodium Chloride () 250 mls @ 15 mls/hr IV .[id number] PRN PRN Reason: Saline Flush Last Admin: 01/06/20 21:09 Dose: 15 mls/hr Documented by: Sodium Chloride () 250 mls @ 15 mls/hr IV .[id number] PRN PRN Reason: Additional IVPB Infusion Meropenem 2 gm/ Sodium (Chloride) 140 mls @ 97 mls/hr IV Q8 [facility] Last Admin: 01/07/20 05:09 Dose: 97 mls/hr Documented by: Loratadine (Loratadine 10 Mg Tablet) 10 mg PO DAILY [facility] Last Admin: 01/06/20 10:34 Dose: 10 mg Documented by: Lorazepam (Lorazepam 1 Mg Tablet) 1 mg PO Q6H PRN PRN PRN Reason: ANXIETY Last Admin: 01/07/20 02:45 Dose: 1 mg Documented by: Morphine Sulfate (Morphine 2 Mg/Ml Syringe) 2 - 4 mg IV Q2H PRN PRN PRN Reason: Pain Score 4-10 Morphine Sulfate (Morphine 4 Mg/Ml Syringe) 2 - 4 mg IV Q2H PRN PRN PRN Reason: Pain Score 4-10 Naproxen (Naproxen 250 Mg Tablet) 250 mg PO DAILY [facility] Last Admin: 01/06/20 10:35 Dose: 250 mg Documented by: Ondansetron HCl (Ondansetron 4 Mg/2 Ml Vial) 4 mg IV Q8H PRN PRN PRN Reason: NAUSEA Oxycodone HCl (Oxycodone 5 Mg Tablet) 5 - 10 mg PO Q4H PRN PRN PRN Reason: Pain Score 6-10 Pantoprazole Sodium (Pantoprazole Sodium 20 Mg Tablet) 20 mg PO BID [facility] Last Admin: 01/06/20 21:00 Dose: 20 mg Documented by: Senna/Docusate Sodium (Senna/Docusate Sodium 1 Tablet) 2 tablet PO QHS [facility] Last Admin: 01/06/20 21:00 Dose: 2 tablet Documented by: Sodium Chloride (0.9% Saline Lock 10 Ml Syringe) 10 - 40 ml IV UD PRN PRN Reason: SALINE FLUSH Last Admin: 01/04/20 21:00 Dose: 10 ml Documented by: Discharge Activity: May Shower Call your doctor if your incision/area has: Continuous Slow Oozing, Sudden Increased Bleeding, Increased Pain/ Swelling, Increased Redness, Foul Smelling Discharge, Swelling at the incision site Call your doctor if you observe: Fever of 101 or Higher Home Medications: Medications to take at Discharge Loratadine 10 mg PO DAILY PRN PRN 04/23/19 Naproxen Sodium [Aleve] 220 mg PO DAILY 04/23/19 Docusate Sodium [Colace] 100 mg PO BID 01/01/20 Oxycodone HCl 5 - 10 mg PO Q6H PRN PRN 01/01/20 Acetaminophen [Tylenol Tablet] 650 mg PO Q6H PRN PRN tablet 01/07/20 Lorazepam [Ativan] 1 mg PO Q6H PRN PRN 3 Days #10 tablet 01/07/20 Following Prescriptions Were Given to Patient: Lorazepam [Ativan] 1 mg PO Q6H PRN PRN 3 Days #10 tablet PRN Reason: Anxiety Transmission Status: Sent to [facility] Please Follow Up With: Mirza Jama MD When: Please call to schedule 1 week follow up appointment. [phone] Patient Instructions: Caring for a Drainage Tube, Caring for Your Vernon Doyle Drainage Tube Medical Necessity - Tobacco Use Smoking Status: Never smoker Meaningful Use Info Meaningful Use Diagnoses (Choose all that apply): None applicable
[2020-01-07 08:00] VITALS: O2SAT 96
--- NOTE | 2020-01-07 08:02 | CASEMGMT ---
HARRIETT CHERRY NOTE: Call placed to Zara @ [facility]. She states they are able to accept pt. She was made aware pt is discharging today. Felicia MERRILL RN, CM
[2020-01-07 08:48] VITALS: BP 111/72; PULSE 79; RESP 18; TEMP 36.7; O2SAT 99
--- NOTE | 2020-01-07 08:52 | NURSING ---
Pt sitting up in bed awake. states he slept better last evening. abdominal incision well approximated with steri strips in place. old dried drainage noted. ostomy appliance intact. small amount of brown unformed stool noted in the appliance. pt does have some flatus noted as well. educated patient again on burping the appliance. pt to continue practicing emptying the appliance. pt states Dr Barajas had been in this am and plans to discharge pt home later today. pt denies further needs at this time.
[2020-01-07 08:55] VITALS: PULSE 80
[2020-01-07] MEDS: Pantoprazole Sodium 20 MG Tablet PO (09:01)
[2020-01-07] MEDS: Naproxen 250 MG Tablet PO (09:01)
[2020-01-07] MEDS: Enoxaparin 40 MG/0.4 ML Syringe SC (09:02)
[2020-01-07] MEDS: Loratadine 10 MG Tablet PO (09:02)
[2020-01-07 09:19] LABS: Absolute Lymphocyte Count 1.78 X10^3/uL (0.83-4.51); Basophil# 0.04 X10^3/uL; Basophil% 0.4 % (0-1); Eosinophil# 0.27 X10^3/uL; Eosinophils% 2.4 % (0-5); Hematocrit 38.4 % (40-54); Hemoglobin 12.4 g/dL (13.0-16.5); Lymphocyte # 1.78 X10^3/ul (4.0); Lymphocyte % 15.8 % (19-41); Mean Corp Hgb Conc 32.3 g/dL (32-36); Mean Corpuscular Hgb 28.3 pg (27.0-32.0); Mean Corpuscular Volume 87.7 fL (80-94); Mean Platelet Vol. 9.1 fl (6.2-12.0); Monocyte# 1.16 X10^3/uL; Monocyte% 10.3 % (0-10); NRBC Flagged by Analyzer 0 % (0-5); Neutrophil # 7.98 X10^3/uL (2.7-7.7); Neutrophil % 70.6 % (47-70); POSITIVE COUNT YES; RBC Distribution Width CV 13.8 % (11.6-14.6); RBC Distribution Width SD 44.7 fl (35.1-43.9); Red Blood Count 4.38 M/mm3 (4.6-6.2); White Blood Count 11.3 K/mm3 (4.4-11.0)
[2020-01-07 09:42] LABS: Differential Indicated SCAN CRITERIA MET; Platelet Count 804 K/mm3 (150-450)
[2020-01-07 09:59] LABS: Platelet Estimate MKD INC (ADEQ)
--- NOTE | 2020-01-07 11:16 | CASEMGMT ---
Social Work Note YARED reviewed chart. Pt currently has son in hospital was experiencing high anxiety yesterday. SW met with pt to provide support. Pt states that he is feeling better today. Pt states he was given Ativan yesterday which helped his anxiety. Pt confirms that the plan is for pt to go home today. Pt states that he lives with his , who works at [employer], and will have first floor set up for both him and his son when his son gets home from the hospital. Pt states that his son Gordo is currently down at [facility] and he is hoping to get home on January 15. Pt states that he and his son will have help at home and pt has an older son who will be available to help as well. Pt states that his handicapped shower will be put in tomorrow. Pt states that he had a plan to get his knees done too but that was put on hold due to the recent surgery that he had. Pt states plan will be for him to get his knees done in the summer when his kids will be home from college to help. 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 SW spoke with pt about increase anxiety for medical issues and also how changing plans can increase anxiety. SW also spoke with pt regarding stress and provided support. Pt thanked this worker, denied additional needs or concerns at this time. Dea Back CNC MACHINE OPERATOR, INDEPENDENT DISTRIBUTOR
--- NOTE | 2020-01-07 11:37 | NURSING ---
In to demonstrate again how to empty the ostomy appliance. Pt still very reluctant to do hands on training, but pt did watch this nurse empty the appliance again and clean the lock n' roll portion of the pouch. pt states between Rhianna and I, we will figure it out. Pt had been very emotional yesterday. seems to be much better today. pt denies further questions or concerns at this time. will continue education as needed. pt aware to call for needs.
[2020-01-07 13:41] VITALS: BP 115/76; PULSE 74; RESP 18; TEMP 36.8; O2SAT 99
--- NOTE | 2020-01-07 14:20 | PHA.DC.MR ---
Pharmacy Service has performed discharge medication reconciliation for this patient. The patient's discharge medication list was reviewed for discrepancies and discrepancies were resolved. Home Medications Loratadine 10 mg PO DAILY PRN PRN 04/23/19 Naproxen Sodium [Aleve] 220 mg PO DAILY 04/23/19 Docusate Sodium [Colace] 100 mg PO BID 01/01/20 Oxycodone HCl 5 - 10 mg PO Q6H PRN PRN 01/01/20 Acetaminophen [Tylenol Tablet] 650 mg PO Q6H PRN PRN tab 01/07/20 Lorazepam [Ativan] 1 mg PO Q6H PRN PRN 3 Days #10 tab 01/07/20
[2020-01-08 13:40] LABS: Pathologist Review Reviewed
== END 2020-01-07 15:14 | disposition home or self-care (01) | DRG 329 ==
PROVIDERS: Surgery; Admitting Provider Surgery; PCP Family Medicine; Referring Provider Surgery; Visit Provider Surgery
PROC: 0DTF0ZZ Resection of Right Large Intestine, Open Approach (ICD-10-PCS; CPT 49000; principal; 2020-01-02 13:45)
DX: K63.0 Abscess of intestine (principal); K65.1 Peritoneal abscess; K57.30 Diverticulosis of large intestine without perforation or abscess without bleeding; D72.829 Elevated white blood cell count, unspecified; Z79.52 Long term (current) use of systemic steroids
CPT/HCPCS: 20501; 36415; 74177; 77012; 80048; 85025; 85610; 87070; 87075; 87077; 87186; 87205; 88307; 94762; 97110; 97116; 97162; 97165; 97530; 97535; 99251; J2185; J7030; J7040; J7050; Q9967; A4216; G0463; J0744; J1170; J2405

== ENCOUNTER → 2020-01-01 | Outpatient (CLI) | payer OTHER, SELFPAY ==
[2019-12-19 18:25] VITALS: BMI 36.6
[2020-01-01 13:41] LABS: Absolute Lymphocyte Count 1.75 X10^3/uL (0.83-4.51); Absolute Neutrophil Count 13.1 X10^3/uL (2.0-7.7); Basophil# 0.08 X10^3/uL; Basophil% 0.5 % (0-1); Eosinophil# 0.46 X10^3/uL; Eosinophils% 2.8 % (0-5); Hematocrit 42.5 % (40-54); Hemoglobin 13.5 g/dL (13.0-16.5); Lymphocyte # 1.75 X10^3/ul (4.0); Lymphocyte % 10.5 % (19-41); Mean Corp Hgb Conc 31.8 g/dL (32-36); Mean Corpuscular Hgb 28.5 pg (27.0-32.0); Mean Corpuscular Volume 89.9 fL (80-94); Mean Platelet Vol. 9.6 fl (6.2-12.0); Monocyte# 1.17 X10^3/uL; NRBC Flagged by Analyzer 0 % (0-5); Neutrophil # 13.05 X10^3/uL (2.7-7.7); Neutrophil % 78.5 % (47-70); POSITIVE COUNT YES; RBC Distribution Width CV 14.3 % (11.6-14.6); RBC Distribution Width SD 47.1 fl (35.1-43.9); Red Blood Count 4.73 M/mm3 (4.6-6.2); White Blood Count 16.6 K/mm3 (4.4-11.0)
[2020-01-01 13:49] LABS: ALB/GLOB Ratio 0.6 RATIO (0.9-2.4); AST(SGOT) 18 U/L (15-37); Alanine Aminotransfer ALT/SGPT 22 U/L (16-61); Albumin, Serum 2.9 g/dL (3.2-5.0); Alkaline Phosphatase 132 U/L (45-117); Anion Gap 6 (5-15); BUN 20 mg/dL (7-18); BUN/Creat Ratio 21.8 RATIO (10-20); Calcium,Total 8.9 mg/dL (8.5-10.1); Chloride 102 mmol/L (98-107); Creatinine, Serum 0.92 mg/dL (0.70-1.30); EST Glomerular Filtration Rate 89 mL/min (>60); Est Glom Filt Rate - Afr Amer 108 mL/min (>60); Globulin 4.7 g/dL (2.2-4.2); Glucose 117 mg/dL (74-106); Protein, Total 7.6 g/dL (6.4-8.2); Sodium Level 136 mmol/L (136-145)
[2020-01-01 13:53] LABS: Differential Indicated SCAN CRITERIA MET; Platelet Count 751 K/mm3 (150-450)
[2020-01-01 15:23] LABS: Crenated RBC 1+; Platelet Estimate MKD INC (ADEQ)
[2020-01-02 14:18] LABS: Pathologist Review Reviewed
== END | disposition home or self-care (01) ==
LOC: LAB 13:03
PROVIDERS: PCP Family Medicine; Referring Provider Surgery; Visit Provider Surgery
DX: K35.80 Unspecified acute appendicitis (principal); K57.92 Diverticulitis of intestine, part unspecified, without perforation or abscess without bleeding
CPT/HCPCS: 36415; 80053; 85025

== ENCOUNTER → 2021-03-10 | Outpatient (CLI) | payer OTHER, SELFPAY | END | disposition home or self-care (01) | LOC: LABSPEC 12:06 | PROVIDERS: PCP Family Medicine; Referring Provider Physician Assistant; Visit Provider Physician Assistant | DX: U07.1 COVID-19 (principal) | CPT/HCPCS: 87635; U0005; U0003 ==

== ENCOUNTER → 2021-07-09 | Outpatient (CLI) | payer OTHER, SELFPAY ==
--- NOTE | 2021-07-09 09:34 | ECHOCS_ITS ---
Reason For Study: Arrhythmia Procedure This was a 2D Doppler, Color Flow transthoracic echocardiogram. The study was technically difficult. Contrast injection was performed. Exam performed in department. Left Ventricle Normal LV size. Left ventricular systolic function is normal. The estimated ejection fraction is 60 %. Stage 1 diastolic dysfunction. No regional wall motion abnormalities noted. Right Ventricle Normal RV size. Normal systolic function. Atria Normal left atrium. Normal right atrium. Mitral Valve Normal mitral valve. Tricuspid Valve Normal tricuspid valve. Aortic Valve Normal aortic valve. Pulmonic Valve Normal pulmonic valve. Great Vessels Normal aortic root. The pulmonary artery is normal size. Normal inferior vena cava. Pericardium/Pleural No pericardial effusion. Medication 22 gauge I.V. with prn adaptor inserted into right arm. Diluted definity 2ml given slow IV push to enhance endocardial definition. MMode/2D Measurements & Calculations LVIDd: 4.7 cm IVSd: 1.1 cm LA dimension: 3.7 cm LVIDs: 2.7 cm LVPWd: 1.3 cm RVDd: 3.1 cm FS: 43.1 % LAV(MOD-bp): 42.6 ml LA A4 area: 14.6 cm2 RA A4 area: 15.1 cm2 LAV(MOD-bp) Indexed: 18.6 ml/m2 LAV(MOD-sp2): 46.8 ml LAV(MOD-sp4): 36.5 ml Time Measurements MV dec time: 0.27 sec Doppler Measurements & Calculations MV E max uriel: 66.1 cm/sec Lat Peak E' Uriel: 8.5 cm/sec Med Peak E' Uriel: 7.7 cm/sec MV A max uriel: 90.6 cm/sec E/E' lat: 7.8 E/E' med: 8.5 MV E/A: 0.73 MV V2 max: 84.1 cm/sec MV P1/2t max uriel: 59.9 cm/sec Ao V2 max: 137.0 cm/sec MV max P.8 mmHg MV P1/2t: 98.6 msec Ao max P.5 mmHg MV V2 mean: 50.9 cm/sec MV dec slope: 177.7 cm/sec2 MV mean P.2 mmHg MV V2 VTI: 21.0 cm MVA(P1/2t): 2.2 cm2 LV V1 max: 107.2 cm/sec PA V2 max: 107.9 cm/sec LV V1 max P.6 mmHg ECHO/Echo Complete W/ Contrast Interpretation Summary Normal LV size. Left ventricular systolic function is normal. The estimated ejection fraction is 60 %. Stage 1 diastolic dysfunction. Contrast injection was performed. Ordering Physician: Agapito Cameron Referring Physician: Pawel Juares Performed By: Nahun Fields RCS
== END | disposition home or self-care (01) ==
LOC: CVS 09:33
PROVIDERS: PCP Family Medicine; Referring Provider Internal Medicine Cardiovascular Disease; Visit Provider Internal Medicine Cardiovascular Disease
DX: I10 Essential (primary) hypertension (principal); I49.9 Cardiac arrhythmia, unspecified
CPT/HCPCS: 93306; Q9957; A4216; C8929

== ENCOUNTER → 2022-11-09 | Outpatient (CLI) | payer OTHER, SELFPAY ==
--- NOTE | 2022-11-09 11:06 | RAD_ITS ---
EXAM: XR RIGHT KNEE COMPLETE, 4 OR MORE VIEWS CLINICAL INDICATION: pain TECHNIQUE: Four or more views of the right knee. COMPARISON: 12/23/2019 FINDINGS: BONES/JOINTS: There is moderate to narrowing medial knee joint space with osteophyte formation. This is unchanged from the reference exam. Small joint effusion present. No acute fracture. No subluxation. Normal alignment. No sclerotic or destructive changes observed. SOFT TISSUES: Unremarkable. No soft tissue swelling or gas. No radiopaque foreign body. RAD/Knee 4 or More Views IMPRESSION: Severe degenerative changes with narrowing of the medial knee joint. There is no change from the reference exam. Electronically Signed: Blaine Ku MD at 17:34 EDT ,
--- NOTE | 2022-11-09 11:08 | RAD_ITS ---
EXAM: XR LEFT KNEE COMPLETE, 4 OR MORE VIEWS CLINICAL INDICATION: pain TECHNIQUE: Four or more views of the left knee. COMPARISON: No relevant prior studies available. FINDINGS: BONES/JOINTS: There is severe narrowing of the medial and lateral knee joint with moderate to severe osteophyte formation. There is a 1.3 cm overhanging of the medial femoral condyle in relation to the medial tibial plateau. No acute fracture. No subluxation. Normal alignment. No sclerotic or destructive changes observed. SOFT TISSUES: Unremarkable. No soft tissue swelling or gas. No radiopaque foreign body. RAD/Knee 4 or More Views IMPRESSION: Moderate to severe degenerative changes with loss of joint space and osteophyte formation. There is a medial subluxation of the medial femoral condyle relation to the tibia. Electronically Signed: Blaine Ku MD at 17:29 EDT ,
== END | disposition home or self-care (01) ==
PROVIDERS: PCP Family Medicine; Referring Provider Orthopaedic Surgery; Visit Provider Orthopaedic Surgery
DX: M25.562 Pain in left knee (principal); M25.561 Pain in right knee
CPT/HCPCS: 73564

== ENCOUNTER → 2022-12-10 | Outpatient (CLI) | payer OTHER, SELFPAY ==
--- NOTE | 2022-12-10 08:39 | CT_ITS ---
HISTORY: Templating for right TKA. TECHNIQUE: Transaxial CT of the right hip, knee and ankle were obtained. Coronal and sagittal reconstruction images of the knee were provided. Individualized dose optimization techniques were used for this CT. 1130 images. COMPARISON: XR 11/09/2022. FINDINGS: Standard protocol for the preoperative planning for the MakoPlasty robotic knee surgery was performed. Mild-moderate arthrosis of the hip with osteophytes and subchondral cysts. Small circumscribed and peripherally sclerotic benign-appearing lucent lesion in the intertrochanteric femur. Moderate to marked tricompartmental arthrosis of the knee with osteophytes and subchondral cysts. Moderate joint effusion of the right knee. 3 x 3.2 x 7.2 cm popliteal cyst with synovial thickening. Venous varicosities present. Mild arthrosis of the ankle. CT/Extremity Lower without Contra IMPRESSION: Preoperative MakoPlasty Robotic knee surgical CT evaluation with findings as described above. Electronically Signed: Yesy Velázquez MD at 9:04 EDT ,
== END | disposition home or self-care (01) ==
LOC: CT 08:38
PROVIDERS: PCP Family Medicine; Referring Provider Orthopaedic Surgery; Visit Provider Orthopaedic Surgery
DX: M17.11 Unilateral primary osteoarthritis, right knee (principal)
CPT/HCPCS: 73700

== ENCOUNTER 2023-02-21 05:31 | Day surgery (SDC) | payer OTHER, SELFPAY ==
--- NOTE | 2023-02-07 07:42 | EKG12_ITS ---
Test Reason : PREOP Blood Pressure : / mmHG Vent. Rate : 073 BPM Atrial Rate : 073 BPM P-R Int : 138 ms QRS Dur : 074 ms QT Int : 406 ms P-R-T Axes : 024 -44 057 degrees QTc Int : 447 ms Normal sinus rhythm Left axis deviation Nonspecific ST abnormality Abnormal ECG Confirmed by EMILIE CLARK, LORENE ([id number]), editor greeting card CELESTINE RIOJAS ([id number]) on 02/08/2023 11:06:11 AM Referred By: Dorian Pandey Confirmed By:LORENE PHAN MD
[2023-02-07 08:17] LABS: Absolute Lymphocyte Count 2.02 X10^3/uL (0.83-4.51); Absolute Neutrophil Count 5.9 X10^3/uL (2.0-7.7); Basophil# 0.09 X10^3/uL; Eosinophil# 0.37 X10^3/uL; Eosinophils% 4.1 % (0-5); Hematocrit 45.8 % (40-54); Hemoglobin 15.1 g/dL (13.0-16.5); Lymphocyte # 2.02 X10^3/ul (0.83-4.51); Lymphocyte % 22.2 % (19-41); Mean Corpuscular Hgb 28.9 pg (27.0-32.0); Mean Corpuscular Volume 87.6 fL (80-94); Mean Platelet Vol. 9.7 fl (6.2-12.0); Monocyte# 0.67 X10^3/uL; Monocyte% 7.4 % (0-10); NRBC Flagged by Analyzer 0 % (0-5); Neutrophil # 5.93 X10^3/uL (2.7-7.7); Neutrophil % 65.2 % (47-70); Platelet Count 427 K/mm3 (150-450); RBC Distribution Width SD 44.8 fl (35.1-43.9); Red Blood Count 5.23 M/mm3 (4.6-6.2); White Blood Count 9.1 K/mm3 (4.4-11.0)
[2023-02-07 08:35] LABS: Magnesium 2.4 mg/dL (1.6-2.6)
[2023-02-07 08:38] LABS: Anion Gap 4 (5-15); BUN 25 mg/dL (7-18); BUN/Creat Ratio 20.7 RATIO (10-20); Calcium,Total 9.2 mg/dL (8.5-10.1); Chloride 105 mmol/L (98-107); Creatinine, Serum 1.21 mg/dL (0.70-1.30); EST Glomerular Filtration Rate 64 mL/min (>60); Est Glom Filt Rate - Afr Amer 78 mL/min (>60); Glucose 107 mg/dL (74-106); Potassium 3.9 mmol/L (3.5-5.1); Sodium Level 137 mmol/L (136-145)
[2023-02-07 08:42] LABS: Hemoglobin A1c 5.1 % (3.8-5.6)
[2023-02-07 09:07] LABS: Prothrombin Time (Protime)PT. 13.1 SECONDS (11.7-14.9)
[2023-02-07 09:08] LABS: Partial Thromboplast Time 30.2 Seconds (24.1-36.2)
[2023-02-08 09:09] LABS: Fructosamine 234 umol/L (0-285)
[2023-02-21] VITALS (10 sets, daily range): BP systolic 94–141; BP diastolic 50–106; PULSE 62–73; RESP 12–18; TEMP 36.1–36.3; O2SAT 91–100; BMI 33.7
--- NOTE | 2023-02-21 | KNEE_PTH ---
PATIENT: EDDIE KLINE LOC: [facility] U#:[id number] AGE/SX: 62/M ROOM: RE02/21/[address]: Dr. Dorian Pandey DO : 1960 BED: DIS: 02/21/2023 SPEC #: [id number] RECD: 02/21/23 13:24 STATUS: TAMMY REQ #: [id number] KRYSTA: 02/21/23 00:[address]: Dorian Pandey DEPT: SURGICAL PATHOLOGY RECD BY: Randall Brand ENTERED: 02/21/23 13:24 SP TYPE: TOTAL KNEE OTHR DR: Dr. Opal Chahal MD Tissues: Knee, NOS Procedures: Decalcification bone/plaque Surgery Specimen Level IV HEADER OPERATION: ERAS, Right total knee replacement robotic arm assisted PRE-OP DIAGNOSIS: Localized osteoarthritis of right knee TISSUE SUBMITTED: Right knee debrided bone and tissue MICROSCOPIC DIAGNOSIS Bone and soft tissue, right knee, total knee replacement/resection: Pieces of bone with degenerative osteoarthritic changes. Fragments of fibroconnective tissue and reactive synovial tissue. Focal changes consistent with pseudogout. SJ:richardson 02/24/2023 MICROSCOPIC DESCRIPTION Slides are reviewed. GROSS DESCRIPTION Received is one container designated bone and soft tissue right knee. The specimen consists of multiple fragments of tse-yellow bone measuring in aggregate 11.0 x 10.0 x 3.5 cm. Also in the specimen container are multiple fragments of yellow-white soft tissue measuring in aggregate 10.0 x 8.0 x 2.5 cm. Focal area of bone and soft tissue also shows chalky, white deposits. A number of bony fragments contain articular surfaces consistent with tibial plateau and femoral condyle and displaying prominent osteophyte formation, eburnation and bone erosion. Honing Machine Set Up Operator Tool sections are submitted in two cassettes as follows: 1 - soft tissue, 2 - bone after decalcification. / AM:richardson 02/21/2023 TC:5 CPT: 05659, 40533
[2023-02-21] MEDS: Scopolamine 1mg/72hr Patch 1 PATCH TD (06:12)
[2023-02-21] MEDS: Acetaminophen 500 MG Tablet 1000 MG PO ×2 (06:12→14:19)
[2023-02-21] MEDS: Gabapentin 600 MG Tablet PO (06:12)
[2023-02-21 06:30] LABS: Bedside Glucose 81 mg/dL (74-106)
[2023-02-21] MEDS: Lactated Ringers 1,000 ML 15 ML IV (06:32)
[2023-02-21] MEDS: Magnesium 1 GM over 15 mins IV (06:33)
--- NOTE | 2023-02-21 07:26 | HP.PCM_ITS ---
History and Physical Date of Admission: 02/21/23 [facility] [address] [place] [address] OFFICE VISIT Date of Service: 11/11/22 MR#: [id number] Acct: [id number] Name: EDDIE ROBERT Rep #: [id number] : 1960 Provider: Dr. Dorian Pandey DO Age/Sex: 62/M Location: [facility] [place] [facility] [place] Status: Signed Intake Vital Signs 06/24/2215:41 11/12/2307:22 Height 5 ft 11 in 5 ft 10 in Weight: 234 lb 8 oz BMI 33.6 Intake Visit Reasons: BL KNEE Chief Complaint: bilateral knee pain Is patient in pain?: Yes (bilateral knee) Pain scale (1-10): 3 Allergies No Known Allergies Allergy (Verified 11/11/22 08:21) Medications loratadine 10 mg capsule 10 mg PO DAILY PRN PRN Allergies 04/23/19 [History Confirmed 06/23/21] allopurinol 300 mg tablet 300 mg PO DAILY 06/17/21 [History Confirmed 06/23/21] naproxen sodium 220 mg tablet 440 mg PO DAILY PRN 06/17/21 [History Confirmed 06/23/21] valacyclovir 500 mg tablet 500 mg PO Q12H PRN 06/17/21 [History Confirmed 06/23/21] PFSH Medical History Acute appendicitis Arthritis Cervical radicular pain Diverticulitis Essential hypertension Obesity Pelvic abscess in male Perforated abdominal viscus PVC (premature ventricular contraction) Surgical History History of appendectomy (12/19/19) History of arthroscopy of both knees History of laparoscopic cholecystectomy (12/19/19) History of partial colectomy (12/2019) Family History Son Heart diseaseOther Alcoholism Bowel disease Social History Smoking Status: Never smoker second hand exposure: No alcohol intake: current alcohol intake frequency: holidays/special occasions only Alcohol type: beer substance use type: does not use caffeine: Yes what type of physical activity do you participate in: none frequency: does not exercise HPI BL KNEE Chief Complaint: bilat. knee pain Details: Parts of this documentation were recorded by a scribe, this documentation accurately reflects the service provided and the decisions made by me, Dr. Dorian Pandey, DO 11/11/22 0753. EDDIE ROBERT is a pleasant 62 year old M young here today for bilateral knee pain. Pt. rates he has been experiencing bilateral knee pain for years and it is gradually getting worse. He rates his pain 2/10 and is a constant dull ache. His pain increases with weight bearing/ ambulation. He states he feels grinding in his bilateral knees but denies popping, clicking or giving out. He treats pain at home with Aleve 2 x daily. Of note I have seen Mr. Robert once in December 23, 2019 in the hospital in consultation for his knee at which time he was admitted for a ruptured appendix and I aspirated his knees and ruled out infection at that time. Pt had ostomy reversal in Apr. Pt states left knee is stronger than right. Pain is about the same for both. Activity, standing causes increased pain and this is effecting his quality of life. Pt has had cortisone injections that did help for 6 months. Back in 2014. Pt had athroscopy BL knees in past. Pt has been taking aleve bid with limited relief. Pt wears compression sleeves while sleeping. 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 Ortho Exam General General: Yes no acute distress Neurologic: Yes alert and Yes oriented x3 Psychologic: Yes reasonable and appropriate Right Knee Skin/Wound: No erythema, No ecchymosis and No swelling Homans Sign: No 2+: Effusion Knee ROM: No ROM-Extension -20 to 0 (lack 3) and No ROM-Flexion 0-140 (90 ) Examination: No Med jt line tenderness, No Lat jt line tenderness and No TTP Pes Anserine Stability: NML: Anterior Drawer, NML: Posterior Drawer, NML: Valgus 30 and NML: Varus 30 Patella Translation: 1 KNEE: varus deformity No gross motor or sensory deficits in bilateral lower extremities palpable pedal pulses bilaterally Left Knee Skin/Wound: No ecchymosis, No erythema and No swelling 3+: Effusion (grade3) Knee ROM: Yes ROM-Extension -20 to 0 and No ROM-Flexion 0-140 (95) Examination: No med jt line tenderness and No Lat jt line tenderness Stability: NML: Anterior Drawer, NML: Posterior Drawer, NML: Valgus 0 and NML: Varus 0 Patella Translation: 1 KNEE: Fixed varus deformity ,bony hypertrophy no significant edema, intact touch neuovascular intact Head: Normocephalic Atraumatic Chest: symmetrical rise, non-labored breathing, no audible wheeze Abdomen: no guarding, non-rigid Office Procedures Office Injections/Aspirations Procedure Detail Procedure performed by: Dorian Pandey Ortho Injection Site: Yes Medication Given: Yes Ortho Injections/Aspirations Yes Knee Left Details: Obtained consent for aspiration. Under sterile conditions, aspirated 125cc clear yellow synovial fluid from the patients left knee. The patient tolerated the aspiration well without any noted complications. Patient should call our office if redness develops, pain worsens or if they have any concerns. Ortho Injections Injections Yes Knee Left Details: Obtained consent for injection. Under sterile conditions, injected the p atient's left knee with 1cc bupivacaine, 1cc lidocaine and 2cc depomedrol. The patient tolerated the injection well without any noted complication. Patient should call our office if redness develops, pain worsens or if they have any concerns. Office Meds Depo-Medrol 40 mg/mL suspension for injection Performing Provider: Dorian Pandey DO Performing Location: [facility] Administered by: Dorian Pandey DO on 11/11/22 09:49 Dose Route Admin Location Dispensed Lot Number Expiration Date NDC Religious Assistant 80 mg intra-articular left knee 2 mL [id number] 06/11/24 [id number] [facility] Supplemental Info 11/09/2022 x-ray right knee: Advanced tricompartmental knee arthrosis, there is varus deformity and lateral subluxation of the tibia 11/09/2022 x-ray left knee: Advanced tricompartmental knee arthrosis, there is varus deformity and lateral subluxation of the tibia Coding Level of Care Code Off vis,new,level 3 Diagnoses Primary osteoarthritis of left knee M17.12 Osteoarthritis type: primary Effusion of left knee joint M25.462 Localized osteoarthritis of right knee M17.11 CPT Codes floor polisher.knee () floor polisher.knee () Assessment and Plan Assessment and Plan (1) Osteoarthritis of left knee: Status: Acute Qualifiers: Osteoarthritis type: primary Qualified Code(s): M17.12 - Unilateral primary osteoarthritis, left knee (2) Effusion of left knee joint: Status: Acute (3) Localized osteoarthritis of right knee: Status: Acute Orders: Orders Ortho Injections Today M17.12 - Unilateral primary osteoarthritis, left knee, M25.462 - Effusion, left knee Ortho Aspiration Today M25.462 - Effusion, left knee Plan Obtained X-rays of patient's BL knees. Personally reviewed x-rays. There is no obvious fracture, dislocation, or lucency noted. Pt educated that he has advanced OA of BL knees. Treatment: bracing, PT, steroid injections, visco injections, TKA, NSAIDs, glucosamine/chondroitin. Risks, benefits and alternatives of surgery reviewed including but not limited to bleeding, infection, nerve, artery and/or tissue damage, fracture, VTE, mechanical feel of the knee, continued pain, stiffness and expected post- operative course.?Pt educated on Iovera, and managing pain post op. Educated on Eliquis for 2 weeks post op and will have compression sleeves. Discussed prophylactic ATB. Can have 2nd TKA 2-3 months after the first. Pt states he is ready to move forward with right TKA in February. Since he proceeding with right TKA he can have left knee aspiration and steroid injection today for which we did perform today removing 130 cc of fluid from the left knee. We will need to get medical clearances and he will need to stop his NSAIDs 1 week prior to surgery, he wishes to proceed with surgery in February he will look at his calendar and let us know when he would like to do it. Follow up in follow up with Iovera treatment of right knee or sooner if pain, swelling, numbness or associated symptoms, or concerns develop. All questions answered. Patient in agreement of plan. 11/11/22 1017 <Electronically signed by Dorian Pandey DO> Date Dorian Kirk Signature: Date (if applicable) CC: ~ I have examined the patient and the H&P has been reviewed. There are no clinical changes since date of exam.
[2023-02-21] MEDS: Cefazolin 2 GM in 0.9% Normal Saline (100mL Bag) 100 ML IV ×2 (07:40→14:19)
[2023-02-21] MEDS: TXA 1000mg in NS100 100ml (IVPB at Incision) 660 MG IV (07:51)
[2023-02-21] MEDS: dexAMETHasone 10 MG/ML Vial IV (08:03)
[2023-02-21] MEDS: TXA 1000mg in NS100 100ml (IVPB at Closure) 660 MG IV (08:23)
[2023-02-21] MEDS: Bupivacaine 0.5% PF 10 ML VIAL (09:57)
[2023-02-21] MEDS: dexAMETHasone 4 MG/ML Vial (09:57)
[2023-02-21] MEDS: Epinephrine (1 mg/ml) 1 MG/ML VIAL (09:57)
[2023-02-21] MEDS: 0.9% Normal Saline (Pres. free 10 ML Vial (09:57)
--- NOTE | 2023-02-21 10:45 | PCM.OP.BLANK ---
Operative Report Date of Procedure: 02/21/23 Preoperative diagnosis: Right knee DJD Postoperative diagnosis: Same Procedure: Right total knee arthroplasty CT guided Robotic Assisted Implant: [place] triathlon press fit, femoral component size5, tibial baseplate size 6, asymmetric patella size 38, polyethylene X3 size 10 CS Anesthesia: Attempted spinal converted to general with adductor canal block Tourniquet time: 16 minutes at 300 mmHg Condition: Stable to PACU Estimated blood loss: 200 cc Vice President Quality Assurance Tyler Lomas. My physician assistant manager quality management was a vital part of this case. He was important in appropriate retraction during the case, and protection of soft tissues during procedure. His intimate knowledge of the case and my steps aided in safe and expedient completion of the procedure as well as appropriate position of the extremity during the case. He was also vital in assisting with closure under my direct supervision. Indication for procedure: This is a 62-year-old male with long standing degenerative joint disease of the knee who has failed conservative treatment and wished to proceed with elective total knee arthroplasty. Risk benefits and alternatives were reviewed including; risk of bleeding, infection, nerve artery and tissue damage, continued pain, postoperative stiffness, venous thromboembolism, need for postoperative rehabilitation, mechanical feel to the knee, and expected postoperative course. The pre- operative CT and templating was performed with component sizing. Procedure: The patient was met in the preoperative holding area. The operative extremity was identified by both patient and physician and was marked. Patient was met by anesthesia. An adductor canal block was placed by anesthesia postoperatively the patient was brought back to the operating room on a wheeled cart and transferred to the operating table in the supine position. Anesthesia was started. A well-padded tourniquet was placed on the operative extremity. The patient was prepped and draped in the usual sterile fashion. A timeout was called to ensure the proper patient procedure and extremity were being contemplated. An esmarch was used to exsanguinate the extremity. The tourniquet was inflated. A 10 blade scalpel was used to make a midline incision down through the skin and subcutaneous tissue. Skin retractors placed. Bovie and Aquamantis were used to perform meticulous hemostasis. full-thickness flaps were elevated medial and lateral along the joint capsule. A deep blade scalpel was used to perform a medial parapatellar arthrotomy. The knee was brought to full extension. A bovie was used to release the soft tissues off the most proximal aspect of the medial tibial plateau, a three-quarter inch curved osteotome was also used in this process. The infrapatellar fat pad was excised. The suprapatellar fat pad was excised partially anteriorolateraly and portion the anterioromedial pad was elevated from the femur. At this point our intra-articular femoral array was placed at a 45 degree angle proximal and posterior to the medial epicondyle. femoral checkpoint was placed at this time. Our tibial array was placed greater than 1 hands breath below the incision at a 20 degree angle stab incisions were made with a 15 blade scalpel and pins were placed and attached to the tibial array , tibial checkpoint was placed in the proximal tibial metaphysis. Tourniquet was let down. At this point registration lott were taken throughout the knee . Once the knee was registered we then tensioned the medial and lateral ligaments in extension and 90 degrees of flexion. We then used these numbers to adjust our components within parameters to balance the knee in both flexion and extension once this was done on our monitor we then proceeded with using the robotic arm to make our tibial plateau cut, anterior and posterior chamfer and distal femur cuts. we removed the cut fragments with the use of a bovie and Toby, we did use a lamina resource paraprofessional to insure we visualized and removed all posterior osteophytes and at this time also used the Aquamantis on the posterior joint capsule. we then trialed and achieved the desired plan with a well-balanced knee. we used the green probe to ashley the corresponding tibial rotation based on our CT template. Lug holes were drilled in the femur the tibia preparation was completed with the appropriate sized base plate pinned based on previous rotation ashley. An appropriate sized fin punch was used on the tibia and 4 corner drill was used for the press fit component and the patella was prepared by first using a caliper to ensure sufficient bone stock and a patellar reamer to remove the desired amount of bone. lug holes drilled for an asymmetric poly. We then brought the knee through range of motion with excellent patellar tracking. We thoroughly irrigated the knee. Trial components were removed a posterior capsular injection was preformed with our standard cocktail. In addition the aqua Mantis was also used to aid in hemostasis. Betadine rinse was allowed to sit and washed out completely. Components were press-fit into place. Aricept rinse was then used followed by several more liters of irrigation after it was allowed to sit. It was noted after the completion of the use of the robot that there was a small tear in the drape of the arm of the robot it would be in in an area that should not have contacted surgical field however thorough irrigation of the joint including the use of several liters of irrigation a Betadine rinse and Aricept rinse were used in the usual fashion and all gloves were changed. The joint capsule was closed with #1 Ethibond [id number] in the upper part of the arthrotomy and #1 Vicryl in the lower part of the arthrotomy. , Followed by 2-0 Vicryl in the subcutaneous tissues with shahnaz in the skin. Arrays and checkpoints were removed prior to closure all counts were correct stab incisions were closed with a staple standard dressing in the form of Mepilex AG for the main incision and a small Mepilex over the pin holes. Thigh-high DANIEL hose applied over top of dressing. Patient tolerated the procedure well and was directed to PACU in stable condition .
--- NOTE | 2023-02-21 10:48 | DCINST_ITS ---
Discharge Instructions Diet Discharge Diet: No restrictions Dressing / Incision Call your doctor if you observe: Shortness of breath and Chest pain Additional Dressing/Incision Instructions:: Ice and elevate lower extremities 2 weeks while not ambulating. Ambulation is encouraged. Weight bearing as tolerated. Use assistive devise for stability. Encourage FULL knee extension and flexion 1 time EVERY time you get up and down and MULTIPLE times per day. No showering until 72 hours after surgery. Begin showering postop day #3. Remove the dressing prior to shower and gently wash with warm water and antibacterial soap then pat dry and place abdominal pad (or plain gauze) and DANIEL hose over top. This is to be done daily. Do not submerge for 3 weeks. If not showering daily after the initial 72 hours then you must clean incision and change dressing daily. Do not allow animals near the incision area. Keep clean. Follow anti-coagulation recommendations as prescribed. Do not take any NSAIDs while on blood thinner. Do not take any additional narcotic pain medication other than what was prescribed on your surgery day without discussing with physician. Narcotic medication can be addictive. Do not drink alcohol while taking narcotics. Supplement narcotic prescription with acetaminophen 1000 mg 4 times a day. Start physical therapy. If you are not currently scheduled for physical therapy or you are unsure of appointment time please call office [facility] to arrange. Call Dr. Pandey with any concerns. Follow Up Care Please Follow Up With: Dorian Pandey DO When: 2 weeks Test Results: Test results from this visit will be discussed in further detail at your follow- up appointment, if applicable. Discharge Plan Admission Primary Reason for Your Visit: Right total knee arthroplasty Attending Provider: Dorian Pandey Primary Care Provider: Opal Chahal Discharge Orders/Prescriptions Prescriptions: New acetaminophen [acetaminophen] 500 mg tablet 1,000 mg PO Q6H PRN Qty: 100 0RF cephalexin [cephalexin] 500 mg capsule 1,000 mg PO Q8 Qty: 4 0RF Rx Instructions: take 2 tabs at 9:00 pm and 2 tabs after 5 am when you wake up Eliquis 2.5 mg tablet 2.5 mg PO BID Qty: 28 0RF Rx Instructions: Begin morning after surgery oxycodone 5 mg tablet 5 - 10 mg PO Q4H PRN (Reason: pain) 7 Days Qty: 60 0RF Continued loratadine 10 MG capsule 10 mg PO DAILY PRN PRN (Reason: Allergies) psyllium husk [Daily Fiber] 0.4 gram capsule 0.4 g PO DAILY allopurinol 300 mg tablet 300 mg PO DAILY valacyclovir 500 mg tablet 500 mg PO Q12H PRN (Reason: cold sores) Discontinued naproxen sodium 220 mg tablet 220 mg PO BID Other Ambulatory Orders: 12 Lead EKG (Routine) Timeframe: [id number] Location: None Selected Ordered By: Dr. Dorian Pandey Referrals / Follow Up: Opal Chahal MD [Primary Care Provider] - Disposition Disposition (needs filled in before D/C Order can be placed): Home, Self Care
--- NOTE | 2023-02-21 11:20 | RAD_ITS ---
STUDY: X-RAY - RIGHT KNEE REASON FOR EXAM: Male, 62 years old. Postop -- in PACU TECHNIQUE: 2 view(s) of the knee. COMPARISON: November 09, 2022 FINDINGS: Knee prosthesis has been placed in anatomic alignment and position. There is residual fluid and gas within the joint space postsurgically. Surgical shahnaz are seen in the soft tissues. RAD/Knee 1 or 2 Views IMPRESSION: Status post knee prosthesis placement Electronically Signed: Mendez Arteaga MD at 17:29 EST ,
[2023-02-21] MEDS: Ketorolac 30 MG/ML Syringe 15 MG IV (14:19)
== END 2023-02-21 16:40 | disposition home or self-care (01) ==
LOC: SDC 05:31 → AC 05:33
PROVIDERS: Anesthesiology; PCP Family Medicine; Referring Provider Orthopaedic Surgery; Visit Provider Orthopaedic Surgery
PROC: 0SRC0JZ Replacement of Right Knee Joint with Synthetic Substitute, Open Approach (ICD-10-PCS; CPT 27447; principal; 2023-02-21 07:00)
DX: M17.0 Bilateral primary osteoarthritis of knee (principal); E66.9 Obesity, unspecified; M25.462 Effusion, left knee; I10 Essential (primary) hypertension; Z68.33 Body mass index [BMI] 33.0-33.9, adult; Z79.01 Long term (current) use of anticoagulants; Z79.899 Other long term (current) drug therapy
CPT/HCPCS: 27447; 01402; 64447; 36415; 73560; 80048; 82962; 82985; 83036; 83735; 85025; 85610; 85730; 86850; 86900; 86901; 87081; 88305; 88311; 93005; 97162; C1776; J7120; J2405; J3475; J3490

== ENCOUNTER → 2023-03-29 | Outpatient (CLI) | payer OTHER, SELFPAY ==
--- NOTE | 2023-03-29 14:01 | RAD_ITS ---
STUDY: X-RAY - RIGHT KNEE REASON FOR EXAM: Male, 62 years old. pain TECHNIQUE: 3 view(s) of the knee. COMPARISON: None. FINDINGS: There is demineralization of the visualized distal femur. There is demineralization of the tibia and fibula. Normal proximal tibiofibular articulation. Total knee arthroplasty showing normal alignment. Suprapatellar large effusion is present. RAD/Knee 3 Views IMPRESSION: Large suprapatellar effusion with total knee arthroplasty showing normal alignment with no evidence of acute fracture. Electronically Signed: Stephen Banuelos DO at 16:52 EST ,
== END | disposition home or self-care (01) ==
LOC: MTRAD 14:01
PROVIDERS: PCP Nurse Practitioner Family; Referring Provider Orthopaedic Surgery; Visit Provider Orthopaedic Surgery
DX: M25.561 Pain in right knee (principal)
CPT/HCPCS: 73562

== ENCOUNTER 2023-04-04 07:29 | Day surgery (SDC) | payer OTHER, SELFPAY ==
--- OUTSIDE RECORDS SUMMARY | 2023-04-04 07:32 | XMS RPT_ITS | CCD ---
Author Name Unknown Address [address] [place] [address] Organization [facility] Care Team Providers Care Solar Installation Manager Name Role Phone PresleyAura Fanta Unavailable Sakina Aura N Unavailable Sakina Aura N Unavailable Aurelia Juares MD Primary Care Provider [phone] Aurelia Juares MD Primary Care Provider Unavailable Primary Care Provider AURELIA Younger Primary Care Unavailable ROCKY ALLEN Attending Unavailabl e RIVERASTBELLE, ROCKY Attending Michelleabl e RIVERASTROCKY ODONNELL Admitting Michelleabl e ALEJANDRO, ROCKY Attending Michelleabl ROCKY Rangel Referring AURELIA Younger Primary Care Unavailable ACE FERMIN Referring Unavailable AURELIA JUARES Primary Care Unavailable AURELIA JUARES Primary Care Unavailable ROCKY ALLEN Referring Michelleabl e Medications Completed/Discontinued Medications Medication Drug Class(es) Dates Sig (Normalized) Sig (Original) allopurinol 300 mg oral tablet (10 sources) Xanthine Oxidase Inhibitor Start: 02-26-2021 allopurinol (ZYLOPRIM) 300 mg tablet once daily. 0 02/26/2021 Active Problems Active Problems Problem Classification Problem Date Documented Da te Episodic/Chronic Cancer of colon (2 sources) History of malignant neoplasm of colon; Translations: [Personal history of other malignant neoplasm of large intestine] Onset: 04-18-2022 Episodic Cardiac dysrhythmias (8 sources) Multiple premature ventricular complexes; Translations: [Ventricular premature depolarization] Onset: 04-08-2022 Chronic Diverticulosis and diverticulitis (3 sources) Diverticulitis; Translations: [Diverticulitis of intestine, part unspecified, without perforation or abscess without bleeding] Onset: 05-13-2022 Chronic Essential hypertension (8 sources) Essential hypertension; Translations: [Essential (primary) hypertension] Onset: 04-08-2022 Chronic Osteoarthritis (5 sources) Idiopathic osteoarthritis; Translations: [Osteoarthritis of knee] Onset: 06-17-2013 10-12-2016 Chronic Other gastrointestinal disorders (4 sources) Colostomy present; Translations: [Encounter for attention to colostomy] Onset: 04-18-2022 04-18-2022 Chronic Other gastrointestinal disorders (1 source) Colostomy status; Translations: [S/P colostomy (HCC)] Onset: 04-11-2022 Chronic Other nutritional; endocrine; and metabolic disorders (1 source) Severe obesity; Translations: [Morbid (severe) obesity due to excess calories] Chronic Other nutritional; endocrine; and metabolic disorders (6 sources) Obesity; Translations: [Obesity, unspecified] Onset: 04-08-2022 04-08-2022 Chronic Other nutritional; endocrine; and metabolic disorders (1 source) Morbid (severe) obesity due to excess calories; Translations: [Class 2 severe obesity due to excess calories with serious comorbidity and body mass index (BMI) of 36.0 to 36.9 in adult ([facility])] Onset: 04-08-2022 Chronic Other nutritional; endocrine; and metabolic disorders (1 source) Body mass index (BMI) 36.0-36.9, adult; Translations: [Class 2 severe obesity due to excess calories with serious comorbidity and body mass index (BMI) of 36.0 to 36.9 in adult ([facility])] Onset: 04-08-2022 Chronic Unclassified (1 source) Established Patient Onset: 03-18-2022 Past or Other Problems Problem Classification Problem Date Documented Da te Episodic/Chronic Other bone disease and musculoskeletal deformities (2 sources) Clavicle pain; Translations: [Other specified disorders of bone, other site] Onset: 10-03-2016 10-03-2016 Episodic Other non-traumatic joint disorders (4 sources) Effusion, unspecified knee; Translations: [Knee pain] Onset: 06-17-2013 11-15-2014 Episodic Other non-traumatic joint disorders (2 sources) Knee pain; Translations: [Pain in right knee] Onset: 06-17-2013 06-18-2013 Episodic Results Test Name Value Interpretation Reference Range Facil ity Vital Signs Date Time Vital Sign Value Performing Clinician Faci lity 05-13-2022 10:51-0500 Body height 177.8 cm Rocky Allen MD Work Phone: [facility] 05-13-2022 10:51-0500 Body weight 107.05 kg Rocky Allen MD Work Phone: [facility] 05-13-2022 10:51-0500 Diastolic blood pressure 72 mm[Hg] Rocky Allen MD Work Phone: [facility] 05-13-2022 10:51-0500 Heart rate 48 /min Rocky Allen MD Work Phone: [facility] 05-13-2022 10:51-0500 SaO2% (BldA) [Mass fraction] 97 % Rocky Allen MD Work Phone: [facility] 05-13-2022 10:51-0500 Systolic blood pressure 118 mm[Hg] Rocky Allen MD Work Phone: [facility] 04-11-2022 11:36-0500 Body height 177.[address] [place] [address] 04-11-2022 11:36-0500 Body temperature 97.9 [degF] [address]st [address] [place] [address] 04-11-2022 11:36-0500 Body weight 112.[address] [place] [address] 04-11-2022 11:36-0500 Diastolic blood pressure 82 mm[Hg] Pst 1 [facility] 04-11-2022 11:36-0500 Heart rate 78 /min Pst [address] [place] [address] 04-11-2022 11:36-0500 Respiratory rate 16 /min Pst [address] [place] [address] 04-11-2022 11:36-0500 SaO2% (BldA) [Mass fraction] 97 % [address] [place] [address] 04-11-2022 11:36-0500 Systolic blood pressure 140 mm[Hg] Pst [address] [place] [address] 03-18-2022 09:27-0500 Body height 177.8 cm Rocky Allen MD Work Phone: [facility] 03-18-2022 09:27-0500 Body weight 116.12 kg Rocky Allen MD Work Phone: [facility] 03-18-2022 09:27-0500 Diastolic blood pressure 80 mm[Hg] Rocky Allen MD Work Phone: [facility] 03-18-2022 09:27-0500 Heart rate 82 /min Rocky Allen MD Work Phone: [facility] 03-18-2022 09:27-0500 Systolic blood pressure 122 mm[Hg] Rocky Allen MD Work Phone: [facility] 06-17-2013 13:31-0400 BP Diastolic 78 mm[Hg] [facility] Work Phone: 06-17-2013 13:31-0400 BP Systolic 126 mm[Hg] [facility] Work Phone: 06-17-2013 13:31-0400 Height 180.34 cm [facility] Work Phone: 06-17-2013 13:31-0400 Pulse (Heart Rate) 69 /min [facility] Work Phone: 06-17-2013 13:31-0400 Weight 123.38 kg Aura Pres[facility] Work Phone: Encounters Encounter Date Encounter Type Care Provider Facility Start: 05-17-2022 Telephone encounter Samina Alberts RN [place] [facility] MANAG[facility] Procedures Date Procedure Procedure Detail Performing Clinician Start: 04-11-2022 End: 04-11-2022 Antibody screen Pst 1 Plan of Treatment Date Care Activity Detail Author Start: 04-20-2025 DIABETES SCREEN DIABETES SCREEN [facility] Start: 04-11-2025 DIABETES SCREEN DIABETES SCREEN [facility] Start: 05-14-2023 BP CONTROLLED (<130/80) BP CONTROLLED (<130/80) [facility] Start: 03-28-2022 End: 03-28-2023 SARS-CoV-2 (COVID-19) RNA [Presence] in Respiratory specimen by MIREYA with probe detection PRE-PROCEDURE & PRE-OPERATIVE COVID Microbiology Routine History of colon cancer Expected: 03/28/2022, Expires: 03/28/2023 [facility] Work Phone: Payers Date Payer Category Payer Private Health Insurance [employer] [id number] 2022-Present [phone] [address] [place] [address] PPO [id number] 2022 Private Health Insurance [id number] 2020 Unknown MMO MMO [employer]PA [id number] 2020-Present [address] [place] [address] PPO [id number] 2020 Unknown MMO MMO [employer]PA [id number] 2020-Present [address] [place] [address] PPO [id number] 2020 Unknown [id number] Social History Date Type Detail Facility Start: 02-02-2021 End: 03-18-2022 Tobacco smoking status NHIS Never smoked tobacco [facility] Start: 02-02-2021 End: 03-18-2022 Tobacco use and exposure Smokeless tobacco non-user [facility] Start: 04-07-2021 End: 03-18-2022 Alcohol intake Ex-drinker (finding) [facility] Start: 1960 Sex Assigned At Not on file [facility] Start: 04-14-2021 End: 05-14-2021 Exposure to SARS-CoV-2 (event) Not sure [facility] Start: 04-11-2022 End: 05-13-2022 Alcohol intake Current drinker of alcohol (finding) [facility] Start: 04-11-2022 Alcohol Comment very occassional [facility] Clinical Notes 02-02-2021 to 05-17-2022 Telephone Encounter - Samina Alberts RN - 05/17/2022 2:43 PM Naomi Allen MD - 05/13/2022 10:44 AM ESTTelephone Encounter - Samina Alberts RN - 05/02/2022 1:46 PM ESTPatient Instructions Note Date & Type Note Facility 05-17-2022 Miscellaneous Notes ERAS OPERATOR CAVITY PUMP ONE MONTH FOLLOW UP PHONE CALL PHONE CALL DATE: 05/17/2022 PHONE CALL TIME: 2:43 PM DATE OF SURGERY: 04/18/2022 PROCEDURE: Colostomy closure, PAN FOLLOW UP QUESTIONS: Is your appetite gradually improving? Yes Is your incision healing well? Yes Are you having regular bowel movements? Yes Did you have a good experience with your recent hospital stay? Yes Have you completed your follow up visit with your surgeon? Yes Patient states he is feeling well. He has no concerns at this time. Encouraged to call MD for questions/concerns. SIGNATURE: Samina Alberts RN DATE: 05/17/2022 TIME: 2:43 PM CONTACT #:[phone] documented in this encounter [facility] 05-13-2022 Note HNO ID: [id number] Author: Rocky Allen MD Service: ? Author Type: Physician Type: Progress Notes Filed: 05/13/2022 4:34 PM Note Text: Rocky Allen M.D. Colon AND Rectal Surgery [address] [facility], [address] [place] [address] SUBJECTIVE Lucio Robert is a 61 year old White male sp/ colostomy reversal HPI He seems to be doing well, with minimal to no pain and his incisions healing well. He still has a minimal amount of drainage from his wound which has trailed off but not quite to the point that he is now wearing a dressing. He is having bowel movements daily, and notes that he has had a slight amount more frequency, but generally has had good control in only had issues when several weeks ago he had a brief bout of diarrhea. Review of Systems Constitutional: Negative for chills, fever and weight loss. HENT: Negative for congestion, ear pain, hearing loss, sinus pain and sore throat. Eyes: Negative for blurred vision, double vision and pain. Respiratory: Negative for cough, shortness of breath and wheezing. Cardiovascular: Negative for chest pain, palpitations and leg swelling. Gastrointestinal: Negative for abdominal pain, constipation, diarrhea, heartburn, nausea and vomiting. Genitourinary: Negative for dysuria, frequency and urgency. Musculoskeletal: Negative for back pain, joint pain and neck pain. Skin: Negative for itching and rash. Neurological: Negative for dizziness, weakness and headaches. Endo/Heme/Allergies: Negative. Negative for environmental allergies. Does not bruise/bleed easily. Psychiatric/Behavioral: Negative for depression and memory loss. The patient is not nervous/anxious and does not have insomnia. PAST MEDICAL HISTORY Diagnosis Date Appendicitis Arthritis Diverticulitis 2019 with pelvic abscess History of colon cancer pt denies PVC (premature ventricular contraction) Sleep apnea PAST SURGICAL HISTORY Procedure Laterality Date APPENDECTOMY ARTHROSCOPY KNEE DIAGNOSTIC W/WO SYNOVIAL BX SPX Bilateral menisectomy PAST SURGICAL HISTORY OF 2019 open sigmoid and right hemicolectomy colectomy with colostomy Social History Tobacco Use Smoking status: Never Smokeless tobacco: Never Vaping Use Vaping Use: Never used Substance Use Topics Alcohol use: Yes Comment: very occassional Drug use: Never FAMILY HISTORY Problem Relation Age of Onset other (diverticulitis) Mother Heart Father The ROS, medical, surgical, family, and social history were reviewed by Rocky Allen MD ALLERGIES No Known Allergies Current Outpatient Medications Medication Sig allopurinol (ZYLOPRIM) 300 mg tablet once daily. valACYclovir (VALTREX) 1 gram as needed. loratadine (CLARITIN) 10 mg tablet Take 10 mg by mouth once daily. meloxicam (MOBIC) 15 mg tablet Take by mouth. (Patient not taking: No sig reported) naproxen sodium (ANAPROX) 220 mg tablet Take 220 mg by mouth twice daily with meals. (Patient not taking: No sig reported) No current facility-administered medications for this visit. OBJECTIVE BP 118/72 (BP Site: Left Arm, BP Position: Sitting, BP Cuff Size: Large Adult) Pulse (!) 48 Ht 177.8 cm (5' 10 ) Wt 107 kg (236 lb) SpO2 97% BMI 33.86 kg/m? BMI 33.86 kg/(m2) Physical Exam Constitutional: General: He is not in acute distress. Appearance: Normal appearance. He is not ill-appearing. Abdominal: General: There is no distension. Palpations: Abdomen is soft. Tenderness: There is no abdominal tenderness. Comments: Well-healing surgical incision sites Neurological: Mental Status: He is alert and oriented to person, place, and time. Psychiatric: Mood and Affect: Mood and affect normal. Judgment: Judgment normal. Hemoglobin (g/dL) Date Value 04/20/2022 12.7 Hematocrit (%) Date Value 04/20/2022 38.4 WBC (k/uL) Date Value 04/20/2022 11.13 Platelet Count (k/uL) Date Value 04/20/2022 321 Creatinine Date Value Ref Range Status 04/20/2022 0.90 0.73 - 1.22 mg/dL Final No results found for: AST No results found for: ALT Antibody Screen (no units) Date Value 04/11/2022 Negative WBC (k/uL) Date Value 04/20/2022 11.13 (H) RBC (m/uL) Date Value 04/20/2022 4.32 %DIG,%DBS Plan ASSESSMENT/PLAN: 1. Diverticulitis - ICD9: 562.11, ICD10: K57.92 He seems to be doing well, and has had some mild issues with urgency but I discussed with him that it is okay to go back on a fiber supplement which can be helpful for keeping his stools more cohesive and may address these issues. We will plan to see him back on an as-needed basis in the future. Follow up: Return for For any new issues or concerns. Rocky Allen M.D. Please Note: This office note has been created using [employer], a speech recognition software program, and may contain errors including punctuation, grammar, spelling, gender, and inapprop (more content not included)... [facility] 05-13-2022 History of Presen t illness Narrative Images from the original note were not included. Rocky Allen M.D. Colon & Rectal Surgery [address] [facility], [address] [place] [address] SUBJECTIVE Lucio Robert is a 61 year old White male sp/ colostomy reversal HPI He seems to be doing well, with minimal to no pain and his incisions healing well. He still has a minimal amount of drainage from his wound which has trailed off but not quite to the point that he is now wearing a dressing. He is having bowel movements daily, and notes that he has had a slight amount more frequency, but generally has had good control in only had issues when several weeks ago he had a brief bout of diarrhea. Review of Systems Constitutional: Negative for chills, fever and weight loss. HENT: Negative for congestion, ear pain, hearing loss, sinus pain and sore throat. Eyes: Negative for blurred vision, double vision and pain. Respiratory: Negative for cough, shortness of breath and wheezing. Cardiovascular: Negative for chest pain, palpitations and leg swelling. Gastrointestinal: Negative for abdominal pain, constipation, diarrhea, heartburn, nausea and vomiting. Genitourinary: Negative for dysuria, frequency and urgency. Musculoskeletal: Negative for back pain, joint pain and neck pain. Skin: Negative for itching and rash. Neurological: Negative for dizziness, weakness and headaches. Endo/Heme/Allergies: Negative. Negative for environmental allergies. Does not bruise/bleed easily. Psychiatric/Behavioral: Negative for depression and memory loss. The patient is not nervous/anxious and does not have insomnia. PAST MEDICAL HISTORY Diagnosis Date Appendicitis Arthritis Diverticulitis 2019 with pelvic abscess History of colon cancer pt denies PVC (premature ventricular contraction) Sleep apnea PAST SURGICAL HISTORY Procedure Laterality Date APPENDECTOMY ARTHROSCOPY KNEE DIAGNOSTIC W/WO SYNOVIAL BX SPX Bilateral menisectomy PAST SURGICAL HISTORY OF 2019 open sigmoid and right hemicolectomy colectomy with colostomy Social History Tobacco Use Smoking status: Never Smokeless tobacco: Never Vaping Use Vaping Use: Never used Substance Use Topics Alcohol use: Yes Comment: very occassional Drug use: Never FAMILY HISTORY Problem Relation Age of Onset other (diverticulitis) Mother Heart Father The ROS, medical, surgical, family, and social history were reviewed by Rocky Allen MD ALLERGIES No Known Allergies Current Outpatient Medications Medication Sig allopurinol (ZYLOPRIM) 300 mg tablet once daily. valACYclovir (VALTREX) 1 gram as needed. loratadine (CLARITIN) 10 mg tablet Take 10 mg by mouth once daily. meloxicam (MOBIC) 15 mg tablet Take by mouth. (Patient not taking: No sig reported) naproxen sodium (ANAPROX) 220 mg tablet Take 220 mg by mouth twice daily with meals. (Patient not taking: No sig reported) No current facility-administered medications for this visit. OBJECTIVE BP 118/72 (BP Site: Left Arm, BP Position: Sitting, BP Cuff Size: Large Adult) Pulse (!) 48 Ht 177.8 cm (5' 10 ) Wt 107 kg (236 lb) SpO2 97% BMI 33.86 kg/m BMI 33.86 kg/(m^2) Physical Exam Constitutional: General: He is not in acute distress. Appearance: Normal appearance. He is not ill-appearing. Abdominal: General: There is no distension. Palpations: Abdomen is soft. Tenderness: There is no abdominal tenderness. Comments: Well-healing surgical incision sites Neurological: Mental Status: He is alert and oriented to person, place, and time. Psychiatric: Mood and Affect: Mood and affect normal. Judgment: Judgment normal. Hemoglobin (g/dL) Date Value 04/20/2022 12.7 Hematocrit (%) Date Value 04/20/2022 38.4 WBC (k/uL) Date Value 04/20/2022 11.13 Platelet Count (k/uL) Date Value 04/20/2022 321 Creatinine Date Value Ref Range Status 04/20/2022 0.90 0.73 - 1.22 mg/dL Final No results found for: AST No results found for: ALT Antibody Screen (no units) Date Value 04/11/2022 Negative WBC (k/uL) Date Value 04/20/2022 11.13 (H) RBC (m/uL) Date Value 04/20/2022 4.32 %DIG,%DBS Plan ASSESSMENT/PLAN: 1. Diverticulitis - ICD9: 562.11, ICD10: K57.92 He seems to be doing well, and has had some mild issues with urgency but I discussed with him that it is okay to go back on a fiber supplement which can be helpful for keeping his stools more cohesive and may address these issues. We will plan to see him back on an as-needed basis in the future. Follow up: Return for For any new issues or concerns. Rocky Allen M.D. Please Note: This office note has been created using [employer], a speech recognition software program, and may contain errors including punctuation, grammar, spelling, gender, and inappropriate words or phrases that pertain to the sytem. documented in this encounter [facility] 05-02-2022 Miscellaneous Notes Patient called with concerns of increased clear yellow drainage from old stoma site. He denies fever, chills, or redness at the site. He notes he is feeling well. Patient sent photos of old ostomy site and drainage on gauze. Dr. Allen viewed photos and recommends patient change gauze dressing 1-2 times/day as needed. He has no concerns with the wound appearance or drainage. Patient instructed on these recommendations with good understanding. documented in this encounter [facility] 04-26-2022 Miscellaneous Notes GENERAL SURGERY/ERAS OPERATOR CAVITY PUMP DISCHARGE FOLLOW UP PHONE CALL Phone Call Date: 04/26/2022 Phone Call Time: 3:09 PM Date of Surgery: 04/18/2022 Procedure: colostomy closure, PAN FOLLOW-UP QUESTIONS: Did you receive adequate written instructions upon discharge? Yes Do you have your follow-up appointment scheduled? YES Is your pain controlled with current medication regimen? YES Current Pain level out of 10: 2 Are you tolerating your diet? YES Nausea/vomiting? NO Are you experiencing fever or chills? NO Are you having any redness at your incision site? No Are you having bowel function? YES Patient states he is feeling well. He has no concerns at this time. Encouraged to call MD with questions/concerns. SIGNATURE: Samina Alberts RN PATIENT NAME: Lucio Robert DATE: April 26, 2022 TIME: 3:09 PM PAGER/CONTACT #: [phone] documented in this encounter [facility] 04-20-2022 Note HNO ID: [id number] Author: Anisha Thomas RN Service: Care Management Author Type: Registered Nurse Type: Care Mgt Progress Note Filed: 04/20/2022 4:11 PM Note Text: CARE MANAGEMENT DISCHARGE NOTE SERVICE DATE: 04/20/2022 SERVICE TIME: 4:08 PM LOS: 2 days Admission Date: 04/18/2022 DISCHARGE ARRANGEMENT (list agency and phone number) Discharge Arrangement: Home with Self Care CAREGIVER ASSESSMENT: Caregiver is ready, willing and able to meet the patient's needs as recommended by the inter-professional team:: No Caregiver needed Patient's transition needs and plan for meeting these needs: Home with follow up care HANDOFF COMMUNICATION: Handoff to: Other Caregiver Other Caregiver Name/Phone: Bedside RN to give patient discharge instructions TRANSPORTATION ARRANGEMENTS: Transportation Arrangements: Car ADDITIONAL CONTACT RESOURCES: Discharge Information Row Name Admission (Current) from 04/18/[address] GENERAL SURGERY Medical Follow-Up Appointment Specialty Primary Care Physician Additional Instructions Please call the number above if you are interested in finding a [facility] Primary Care Physician. They will help find a provider near you. Needs Prior to Discharge: Ready for Discharge Anticipated discharge today. Awaiting discharge orders. Plan is for patient to return home at discharge. Patient reports that he has a good family support system in place and will have transportation available at discharge. No transitional/discharge planning needs identified. SIGNATURE: Anisha Thomas RN PATIENT NAME: Lucio Robert DATE: April 20, 2022 TIME: 4:08 PM PAGER/CONTACT #: [phone] [facility] 04-20-2022 Note HNO ID: [id number] Author: Jamaal Santillan Service: General Surgery Author Type: ? Type: Progress Notes Filed: 04/20/2022 5:41 AM Note Text: MEDICAL STUDENT Elective General Surgery (Green Surgery) Progress Note This note was generated by a medical student working under the supervision of a resident and attending physician. When co-signed, the physical exam findings, assessment, and plan as written below are are considered accurate. SERVICE DATE: 04/20/2022 Elective General Surgery (Green Surgery) Service Pager: For questions or concerns Mon-Fri 6a-5p please page [phone]. After 5pm and on Weekends and Holidays, please page [phone] if in ICU or [phone] if on RNF. SUBJECTIVE: Admits to minimal abdominal pain, especially when he tries to wipe. Denies fevers, chills, CP, SOB, headache, cough, muscle weakness, numbness, urinary difficulty, or any other complaints this AM. Tolerating diet DIET GASTRO INTESTINAL Nausea No Emesis No Flatus No Bowel movement Yes Pain Controlled Yes Ambulating Yes OBJECTIVE: Vitals: Temp (24hrs), Av.7 ?C (98.1 ?F), Min:36.3 ?C (97.3 ?F), Max:37 ?C (98.6 ?F) BP 138/66 Pulse 62 Temp 36.7 ?C (98.1 ?F) (Oral) Resp 16 Ht 177.8 cm (5' 10 ) Wt 114.2 kg (251 lb 12.3 oz) SpO2 97% BMI 36.12 kg/m? O2 Therapy: Room Air IANDO: Date 04/19/22 07 - 04/20/22 0659 04/20/22 07 - 04/21/22 0659 Shift 1064-6308 8472-0749 8294-5486 24 Hour Total 6271-6163 0406-9221 5175-8415 24 Hour Total INTAKE PO 420 440 860 PO 420 440 860 Shift Total 420 440 860 OUTPUT Urine 9023 700 4259 Void (ml) 589 378 2721 Urine Not Saved. 2 x 2 x Output ([REMOVED] Indwelling Urinary Catheter 04/18/22 0815 Coude 18 Fr 04/19/22 0900) 900 900 # of BMs Number of BMs 2 x 2 x Shift Total 1118 815 4949 Weight (kg) 114.2 114.2 114.2 114.2 114.2 114.2 114.2 114.2 MEDICATIONS Current Facility-Administered Medications Medication Dose Route Frequency ibuprofen 600 mg tab(s) (MOTRIN) 600 mg ORAL q 6 H allopurinol 300 mg tab(s) (ZYLOPRIM) 300 mg ORAL DAILY pantoprazole DR 40 mg tab(s) (PROTONIX) 40 mg ORAL DAILY (6 AM) magnesium oxide 400 mg tab(s) (MAG-OX) 400 mg ORAL DAILY ondansetron (PF) 4 mg injection (ZOFRAN) 4 mg INTRAVENOUS q 4 H PRN acetaminophen 975 mg tab(s) (TYLENOL) 975 mg ORAL q 6 H traMADol 50-100 mg tab(s) (ULTRAM) 50-100 mg ORAL q 6 H PRN enoxaparin 40 mg injection (LOVENOX) 40 mg SUBCUTANEOUS q 24 HR Labs: Recent Labs 04/20/22 0500 04/19/22 0359 NA -- 135* K -- 3.9 CHLOR -- 102 CO2 -- 24 BUN -- 22 CREAT -- 0.95 GLUC -- 118* ANION -- 9 CA -- 8.8 WBC 11.13* 15.54* HB 12.7* 13.9 HCT 38.4* 40.2 PLT 321 311 Exam: GENERAL: resting comfortably, in no acute distress HEENT: normocephalic, atraumatic, EOMI NECK: trachea midline, no JVD LUNGS: Unlabored breathing, equal chest rise bilaterally CARDIAC: Regular rate and rhythm as above ABDOMEN: Soft, non-tender, non-distended, no masses or organomegaly, incisions with ban aids, surrounding skin c/d/i EXTREMITIES: DOLAN, No deformities, No edema SKIN: Skin color, texture, turgor normal, No rashes or lesions NEURO: AANDOx3, CN II-XII grossly intact PSYCH: normal mood and affect ASSESSMENT AND PLAN: Active Hospital Problems Diagnosis Date Noted Attention to colostomy (HCC) 04/18/2022 Assessment: 61 year old male s/p day 2 from [facility]. Hospital Course: 04/18/2022 Procedure(s): LAP CLOSURE OF ENTEROSTOMY W/ RESECTION AND ANASTOMOSIS Plan: - Diet: Gastrointestinal diet as tolerated - Nausea control: 4 mg Zofran q4 PRN - GI PPx: 40 mg Protonix q24 - DVT PPx: 40 mg Lovenox q24 - Encourage ambulation, incentive spirometry - Discussed with resident: Sandhya Santana and Elaine Follow up needs: TBD SIGNATURE: Jamaal Santillan PATIENT NAME: Lucio Robert DATE: April 20, 2022 TIME: 5:28 AM Pager: see below Elective General Surgery (Green Surgery) Service Pager: For questions or concerns Mon-Fri 6a-5p please page [phone]. After 5pm and on Weekends and Holidays, please page [phone]. [facility] 04-19-2022 Note HNO ID: [id number] Author: Anisha Thomas RN Service: Care Management Author Type: Registered Nurse Type: Care Mgt Initial Assessment Filed: 04/19/2022 10:32 AM Note Text: CARE MANAGEMENT: ASSESSMENT AND DISCHARGE PLAN SERVICE DATE: April 19, 2022 SERVICE TIME: 10:26 AM PRIMARY CARE PHYSICIAN: None. Information on PCPs provided. Primary Contact: Extended Emergency Contact Information Primary Emergency Contact: Rhianna Robert [address] [address] [place], [place] [id number] [place] [address] Mobile Relation: Spouse ADMISSION STATUS: Inpatient Insurance Provider: SUSANA ARELLANO [facility] NEEDS PRIOR TO DISCHARGE Needs Prior to Discharge: Pharmacy Bedside Delivery POTENTIAL TRANSITION PLANS Home Based on clinical judgement, Care Management will address the following needs: No transitional/discharge planning needs at this time Patient's perception of need for this admission: Scheduled surgery ADVANCE DIRECTIVES Current Advance Directive: Health Care Power of Engine Repairer;Living Will In Chart: No MS/BEHAVIOR Baseline Mental Status Prior to this Illness what was the patient's Baseline Mental Status?: Alert AND Oriented Prior to this illness, has anyone described the patient having any of the following behaviors?: Not Applicable Relationship of the informant to the patient:: Self READMISSION Last Discharge Date: N/A Is this Within the Past 30 days? From what level of care did patient present?: Home Last discharge within 30 days: No PATIENT SCREEN Patient/Environmental Permitting Specialist Stated Goals: To return home to life as it was Under the care of a PCP?: No Does the patient have transportation upon discharge?: Yes Situation: Patient's family will provide transportation at discharge Use of any community resources?: No Does the patient have a stable and supportive living arrangement and home setting?: Yes Situation: Patient from home with his spouse and two adult children prior to admission. Patient reports that he has a good family support system in place. Are there any potential risks or gaps identified by risk/functional/fall,etc. scores in the EMR?: No Any potential risks related to substance abuse and/or behavioral health?: No Based on clinical judgement, Care Management will address the following needs: No transitional/discharge planning needs at this time CAREGIVER ASSESSMENT Caregiver is ready, willing and able to meet the patient's needs as recommended by the inter-professional team:: No Caregiver needed Patient's transition needs and plan for meeting these needs: Home with follow up care No medical discharge barriers identified at this time. No social discharge barriers identified at this time. No behavioral/cognitive discharge barriers identified at this time. No functional discharge barriers identified at this time. FREEDOM OF CHOICE EXPLAINED: [place] of Choice Given: No Reason Not Given: No placements necessary Are you interested in bedside delivery of your medications? Yes ASSESSMENT AND PLAN: Chart reviewed. S/p [facility] reversal on 04/18. Spoke with patient at the bedside. Explained care management role. Patient from home with his spouse and two adult children prior to admission. Independent with personal care and IADLs. Employed. Drives. Plan is for patient to return home at discharge. Patient reports that he has a good family support system in place and will have transportation available at discharge. No transitional/discharge planning needs identified. SIGNATURE: Anisha Thomas RN PATIENT NAME: Lucio Robert DATE: April 19, 2022 TIME: 10:26 AM CONTACT #: [id number] [facility] 04-19-2022 Note HNO ID: [id number] Author: Fariba Henry MD Service: General Surgery Author Type: Resident Type: Progress Notes Filed: 04/19/2022 7:26 AM Note Text: Attestation signed by Rocky Allen MD at 04/19/2022 1:59 PM He is feeling well today and we will continue the enhanced recovery protocol. I personally saw and examined the patient on 04/19/2022. I reviewed the resident?s note. I agree with the resident?s assessment and plan unless otherwise noted Rocky Allen MD 1:59 PM 04/19/22 Please Note: This office note has been created using [employer], a speech recognition software program, and may contain errors including punctuation, grammar, spelling, gender, and inappropriate words or phrases that pertain to the sytem. Elective General Surgery (Green Surgery) Progress Note SERVICE DATE: April 19, 2022 Elective General Surgery (Green Surgery) Service Pager: For questions or concerns Mon-Fri 6a-5p please page [phone]. After 5pm and on Weekends and Holidays, please page [phone]. SUBJECTIVE: Patient is s/p day 1 from [facility]. He reports he is feeling well. Denies any nausea, vomiting, fever, or chills. He thinks he passed flatus overnight. Denies any bowel movements. Reports minimal abdominal pain around incisions when deep breathing on his IS. No other concerns at this time. OBJECTIVE: Vitals: Temp (24hrs), Av.7 ?C (98 ?F), Min:36.6 ?C (97.9 ?F), Max:36.8 ?C (98.2 ?F) BP 108/60 Pulse 71 Temp 36.7 ?C (98.1 ?F) (Axillary) Resp 18 Wt 114.2 kg (251 lb 12.3 oz) SpO2 96% BMI 36.12 kg/m? O2 Therapy: Room Air IANDO: Date 04/18/22699 - 04/19/2265804/19/22699 - 04/20/22 0659 Shift 7789-2192 7636-4247 0138-8489 24 Hour Total 5524-2000 2503-4338 7150-1039 24 Hour Total INTAKE IV 3850 762 126 4819 Volume (mL) (magnesium sulfate 2 g in NaCl 0.9% 100 mL) 100 100 Volume (mL) (albumin (5%) infusion) 250 250 Volume (mL) (ertapenem 1 g in NaCl 0.9% 100 mL Vial-Bag (INVanz)) 100 100 Volume (mL) (lactated ringers iv infusion) 3400 3400 Volume (mL) (lactated ringers iv infusion) 500 500 Volume (mL) (lactated ringers iv infusion) 504 504 Shift Total 3850 464 620 5818 OUTPUT Urine 200 745 862 9621 OR Urine Output 200 200 Output ( Indwelling Urinary Catheter 04/18/22 0815 Coude 18 Fr) 657 493 7758 Blood 150 150 Estimated Blood loss 150 150 Shift Total 350 613 636 6029 Weight (kg) 114.2 114.2 114.2 114.2 114.2 114.2 MEDICATIONS: Current Facility-Administered Medications Medication Dose Route Frequency allopurinol 300 mg tab(s) (ZYLOPRIM) 300 mg ORAL DAILY lactated ringers iv infusion 40 mL/hr INTRAVENOUS CONTINUOUS pantoprazole DR 40 mg tab(s) (PROTONIX) 40 mg ORAL DAILY (6 AM) magnesium oxide 400 mg tab(s) (MAG-OX) 400 mg ORAL DAILY ondansetron (PF) 4 mg injection (ZOFRAN) 4 mg INTRAVENOUS q 4 H PRN acetaminophen 975 mg tab(s) (TYLENOL) 975 mg ORAL q 6 H traMADol 50-100 mg tab(s) (ULTRAM) 50-100 mg ORAL q 6 H PRN enoxaparin 40 mg injection (LOVENOX) 40 mg SUBCUTANEOUS q 24 HR lactated ringers iv infusion 40 mL/hr INTRAVENOUS CONTINUOUS alvimopan 12 mg cap(s) (ENTEREG) 12 mg ORAL BID Labs: Recent Labs 04/19/22 0359 NA 135* K 3.9 CHLOR 102 CO2 24 BUN 22 CREAT 0.95 GLUC 118* ANION 9 CA 8.8 WBC 15.54* HB 13.9 HCT 40.2 PLT 311 Physical Exam: GENERAL: resting comfortably, in no acute distress HEENT: normocephalic, atraumatic, EOMI NECK: trachea midline, no JVD LUNGS: Unlabored breathing, equal chest rise bilaterally CARDIAC: Regular rate, warm extremities, good perfusion throughout ABDOMEN: Soft, non-tender, non-distended. No rebound or guarding, incisions with band aids, surrounding skin C/D/I EXTREMITIES: DOLAN, No deformities, No edema SKIN: Skin color, texture, turgor normal, No rashes or lesions NEURO: AANDOx3, CN II-XII grossly intact PSYCH: normal mood and affect ASSESSMENT AND PLAN: Assessment Active Hospital Problems Diagnosis Date Noted Attention to colostomy (HCC) 04/18/2022 Assessment: 61 year old male s/p day 1 from [facility] reversal. Hospital Course/Operations/Procedures: 04/18/2022 Procedure(s): LAP CLOSURE OF ENTEROSTOMY W/ RESECTION AND ANASTOMOSIS Plan: - ERAS protocol - Remove locke today - AROBF - Pain and nausea control - Diet: DIET LIQUID Discussed with attending: Dr. Allen Follow up needs: TBD SIGNATURE: Fariba Henry MD PATIENT NAME: Lucio Robert DATE: April 19, 2022 TIME: 7:20 AM Pager: see below Elective General Surgery (Green Surgery) Service Pager: For questions or concerns Mon-Fri 6a-5p please page [phone]. After 5pm and on Weekends and Holidays, please page [phone] if in ICU or [phone] if on RNF. [facility] 04-18-2022 Note HNO ID: [id number] Author: Rocky Pardo DO Service: Anesthesiology Author Type: Physician Type: Anesthesia Procedure Notes Filed: 04/18/2022 9:06 AM Note Text: ANESTHESIOLOGY PROCEDURE NOTE Peripheral Nerve Block General Information Procedure Start Time/Medication Administration: 04/18/2022 8:26 AM Patient location during procedure: OR Timeout Performed Pre-procedure: timeout performed Consent Obtained: Yes Patient identity confirmed: arm band Reason for block: post-op pain management/at surgeon's request Staffing Anesthesiologist: Rocky Pardo DO Performed by: anesthesiologist Preparation Sterility Preparation: hand hygiene performed prior to procedure, sterile gloves, drapes, and procedure tray, surgical cap used, mask used, skin prep agent completely dried prior to procedure Site Prep: Chloraprep Pre-Procedure Neuro Exam Location: ABDOMEN Sensory: intact Motor: intact Procedure Details Patient Position: supine Monitoring: EKG, Pulse OX and NIBP Block Type Trunk: rectus sheath block and TAP block Laterality: bilateral Injection Technique: single-shot Ultrasound Guided: Yes Image in Chart: no Local Infiltration: Yes Needle Needle Type: blunt and echogenic Needle Gauge: 21 G Needle Length: 110 mm Needle Localization: ultrasound and anatomical landmarks Assessment Injection assessment: negative aspiration, incremental injection and local visualized surrounding nerve on ultrasound (done under GA) Post-Procedure Neuro Exam Expected Regional Anesthesia: Yes Medications Administered bupivacaine (PF) 0.5 % (5 mg/mL) injection - peripheral nerve block 30 mL - 04/18/2022 8:26:00 AM bupivacaine liposome (PF) 1.3 % (13.3 mg/mL) injection (EXPAREL) - INFILTRATION 266 mg - 04/18/2022 8:26:00 AM SIGNATURE: Rocky Pardo DO PATIENT NAME: Lucio Robert DATE: April 18, 2022 TIME: 9:03 AM CSN: [id number] [facility] 04-18-2022 Note HNO ID: [id number] Author: Mendez Mccord APRN.[employer]OOK Service: Anesthesiology Author Type: Nurse Lawyers Type: Anesthesia Procedure Notes Filed: 04/18/2022 8:41 AM Note Text: ANESTHESIOLOGY PROCEDURE NOTE Airway General Information Procedure Start Time/Medication Administration: 04/18/2022 8:24 AM Patient location during procedure: OR Patient identity confirmed: arm band Staffing [employer]OOK: Mendez Mccord APRN.[employer] COOK Performed by: SCHOOL CAFETERIA COOK Indications and Patient Condition Indications for airway management: anesthesia Preoxygenated: yes anesthesia circuit Patient position: sniffing Method: asleep Final Airway Details Final airway type: endotracheal airway Final Endotracheal Airway: ETT Cuffed: yes Successful intubation technique: video laryngoscopy Devices used: Davidson Endotracheal tube insertion site: oral Blade: Toshia Blade size: #4 ETT size (mm): 8.0 Measured from: lips Measurement (cm): 23 Placement verified by: chest auscultation and capnometry SIGNATURE: Jatin Mccord APRN.CRNA PATIENT NAME: Lucio Robert DATE: April 18, 2022 TIME: 8:40 AM CSN: [id number] [facility] 04-11-2022 Note Education ([facility]) LUCIO ROBERT ([id number]) 1960 Date Time Provider Department 04/11/22 SAMINA ALBERTS Reason for Visit: Patient Education [91] During your visit today, we recorded the following information about you: Allergies As of Date: 04/11/2022 (No Known Allergies) Date Reviewed: 04/11/2022 Reviewed by: Ace Fermin APRN.BROADCAST DESIGNER - Fully Assessed Prescriptions as of 04/11/2022 - allopurinol (ZYLOPRIM) 300 mg tablet once daily. - meloxicam (MOBIC) 15 mg tablet Take by mouth. - valACYclovir (VALTREX) 1 gram as needed. - naproxen sodium (ANAPROX) 220 mg tablet Take 220 mg by mouth twice daily with meals. - loratadine (CLARITIN) 10 mg tablet Take 10 mg by mouth once daily. Encounter Status:Closed by SAMINA ALBERTS on 04/11/22 [facility] 04-11-2022 Note HNO ID: [id number] Author: Samina Alberts RN Service: ? Author Type: Registered Nurse Type: Progress Notes Filed: 04/11/2022 2:41 PM Note Text: GENERAL SURGERY/ERAS OPERATOR CAVITY PUMP PREOPERATIVE EDUCATION Date: 04/11/2022 Time: 11:45 AM Education provide to: Patient Lives with: Spouse Mobility: Independent ERAS protocol instructions given with good understanding. Written instructions given to patient. Encouraged to call with any questions. SIGNATURE: Samina Alberts RN PATIENT NAME: Lucio Robert DATE: April 11, 2022 TIME: 2:40 PM PAGER/CONTACT #: [phone] [facility] 04-11-2022 History of Presen t illness Narrative GENERAL SURGERY/ERAS OPERATOR CAVITY PUMP PREOPERATIVE EDUCATION Date: 04/11/2022 Time: 11:45 AM Education provide to: Patient Lives with: Spouse Mobility: Independent ERAS protocol instructions given with good understanding. Written instructions given to patient. Encouraged to call with any questions. SIGNATURE: Samina Alberts RN PATIENT NAME: Lucio Robert DATE: April 11, 2022 TIME: 2:40 PM PAGER/CONTACT #: [phone] documented in this encounter [facility] 04-11-2022 History and physical note HISTORY AND PHYSICAL EXAMINATION SERVICE DATE: 04/08/2022 SERVICE TIME: 11:53 AM PRIMARY CARE PHYSICIAN: Aurelia Juares MD REASON FOR VISIT: Lucio Robert is a 61 year old male who is scheduled for Procedure(s): LAP CLOSURE OF ENTEROSTOMY W/ RESECTION & ANASTOMOSIS (N/A) at the request of Dr. Rocky Allen for routine H&P. My final recommendation will be communicated back to the requesting physician by way of shared medical record or letter. Subjective The patient has the following: ACTIVE PROBLEM LIST Essential (Primary) Hypertension Obesity Ventricular Premature Beats COVID-19 Immunization Status Overdue - COVID-19 VACCINE (1) Overdue - never done No completion, postpone, frequency change, or communication history exists for this topic. CHIEF COMPLAINT: S/P colostomy HPI: Patient is a 61 year old male here for a preoperative exam. Pt has a history of diverticulitis. He previously underwent a Ugarte's procedure with right hemicolectomy. He recently had a colonoscopy and XR which did not show abnormality. He is scheduled for colostomy reversal. Pt denies complaints at this time. Pt discussed with surgeon and agrees to surgical intervention. REVIEW OF SYSTEMS: General: Negative for: unintentional weight change, malaise and fever. Neurological: Negative for: headaches, seizures and strokes. Respiratory: Negative for: asthma, COPD, URI < 2 weeks and obstructive sleep apnea. Cardiovascular: Positive for: hypertension Negative for: arrhythmia, CAD, chest pain, CHF, DVT/PE and hyperlipidemia. GI: See HPI. Positive for: diverticulitis Negative for: abdominal pain, GERD, nausea and vomiting. : Negative for: dysuria, hematuria and renal failure. Endocrine: Negative for: diabetes mellitus, hyperthyroidism and hypothyroidism. Hematology: Negative for: anemia, factor V Leiden, von Willebrand disease and chronic anti-coagulation/platelet meds. Oncology: No history of CA metastasis, chemo within 30 days, or radiotherapy within 90 days. No history of oncological symptoms or problems. Psych: Negative for: anxiety and depression. Musculoskeletal: Positive for: joint pain. Negative for: back pain. Skin: Negative for lesions, rash and itching. PAST MEDICAL HISTORY Diagnosis Date Appendicitis Arthritis Diverticulitis 2019 with pelvic abscess History of colon cancer pt denies PVC (premature ventricular contraction) PAST SURGICAL HISTORY Procedure Laterality Date APPENDECTOMY ARTHROSCOPY KNEE DIAGNOSTIC W/WO SYNOVIAL BX SPX Bilateral menisectomy PAST SURGICAL HISTORY OF 2019 open sigmoid and right hemicolectomy colectomy with colostomy FAMILY HISTORY Problem Relation Age of Onset other (diverticulitis) Mother Heart Father Social History Tobacco Use Smoking status: Never Smokeless tobacco: Never Vaping Use Vaping Use: Never used Substance Use Topics Alcohol use: Yes Comment: very occassional Drug use: Never Prior to Admission medications as of 04/11/22 1116 Medication Sig Last Dose Taking allopurinol (ZYLOPRIM) 300 mg tablet once daily. Taking Yes valACYclovir (VALTREX) 1 gram as needed. Taking Yes loratadine (CLARITIN) 10 mg tablet Take 10 mg by mouth once daily. Taking Yes meloxicam (MOBIC) 15 mg tablet Take by mouth. Patient not taking: No sig reported Not Taking naproxen sodium (ANAPROX) 220 mg tablet Take 220 mg by mouth twice daily with meals. Patient not taking: Reported on 04/11/2022 Not Taking No medication comments found. ALLERGIES No Known Allergies Objective PHYSICAL EXAM: General: alert and oriented and healthy appearance. Pertinent negatives noted - not distressed. Skin: normal color, no rash or lesions. HEENT: No additional findings for patient's neck. Cardiovascular: regular rate and rhythm, normal S1 and S2, no rub, murmurs, or gallop. Respiratory: normal breath sounds, no wheezes or crackles. No chest wall deformity or tenderness. Abdomen: bowel sounds present and soft. Pertinent negatives noted - not tender. Extremities: no deformity, no edema or tenderness, no joint swelling or clubbing. Neurological: normal cognition and motor skills. Gait normal. No weakness or sensory deficit. PAIN ASSESSMENT: VITALS: BP 140/82 Pulse 78 Temp 97.9 Resp 16 Ht 5' 10 (1.78m) Wt 248 lb (112.5kg) SpO2 97% BMI 35.58 kg/(m^2). Diagnostic tests reviewed for today's visit: Lab Value Units Date High Low HB No results within date range. HCT No results within date range. WBC No results within date range. PLT No results within date range. NA No results within date range. K No results within date range. GLUC No results within date range. BUN No results within date range. CREAT No results within date range. PTSEC No results within date range. INR No results within date range. APTT No results within date range. ALT No results within date range. AST No results within date range. TBILI No results within date range. TSH No results within date range. Lab Value Units Date High Low HCGQT No results within date range. UHCG No results within date range. HCG, BODY* No results within date range. Lab Value Units Date High Low ABORHD No results within date range. ABSCREEN No results within date range. No results found for: HBA1C No results found for this or any previous visit (from the past 8760 hour(s)). No results found for this or any previous visit (from the past 42309 hour(s)). Assessment Phillips Activity Status Index: METS: Climb a flight of stairs or walk up a hill (5.50 METs) DASI Score: 5.5 Patient denies any chest pain or undue shortness of breath with the above physical activity. ARISCAT Score: Age: 51-80 Preoperative SpO2: >=96% Respiratory infection in the last month: No Preoperative anemia: No Surgical incision: upper abdominal Duration of surgery: >3 hrs Emergency procedure: No ARISCAT Score: 41 ANESTHESIA FINDINGS: Intubation History: No history of difficult intubation. No abnormal airway history Significant Anesthesia Considerations: none Airway History: No history of difficult airway No abnormal airway history I - PHYSICAL EVALUATION AIRWAY Patient intubated: No. DENTAL Dental findings: teeth intact. II - ANESTHESIA PLAN Anesthetic Plan: general Beta Kathie Monitoring Plan Post Procedure Analgesic Plan Prepared for Surgery: CONSULTS: The following consults have been initiated at this time: cardiology (07/13/2021) and primary care/internal medicine (04/05/2022). Planned Anesthetic: general Implantable Devices: None Patient has the following medical conditions which may affect sridhar-operative course Problem List Items Addressed This Visit Cardiovascular Essential (primary) hypertension PLAN: controlled, no medication at this time Ventricular premature beats PLAN: managed by Cardiology in [place] Other Obesity Assessment: BMI 35.58 Other Visit Diagnoses Preop examination - Primary Relevant Orders CBC BASIC METABOLIC PNL TYPE AND SCREEN,30 DAY CONFIRM BLOOD TYPE S/P colostomy (HCC) [Z93.3 (ICD-10-CM)] Pt denies daily use of blood thinners The Following Tests/Procedures Have Been Initiated: COVID ordered per surgeon in Epic CBC, BMP, T/S, ABO confirmation ordered per GOLDIE in PST Assessment/Plan Diagnosis: S/P colostomy PLAN Planned Procedure: Procedure(s): LAP CLOSURE OF ENTEROSTOMY W/ RESECTION & ANASTOMOSIS (N/A) The Following Tests/Procedures Have Been Initiated: Orders Placed This Encounter CBC Standing Status: Future Standing Expiration Date: 06/06/2022 BASIC METABOLIC PNL Standing Status: Future Standing Expiration Date: 06/06/2022 Type and Screen, 30 day Standing Status: Future Standing Expiration Date: 06/06/2022 Order Specific Question: Hospital of Planned Surgery or Procedure: Answer: [facility] Confirm Blood Type Order Comments: Draw separate from TSCR Standing Status: Future Standing Expiration Date: 06/06/2022 Order Specific Question: Did Blood Bank direct you to place this order: Answer: No - Presurgical Workflow Instructions Given to Patient: Instructions located in the after visit summary. Patient given verbal and written preop instructions and voices comprehension and compliance. SIGNATURE: Ace Fermin APRN.CNP PATIENT NAME: Lucio Robert DATE: April 08, 2022 TIME: 10:21 AM PAGER/CONTACT #: documented in this encounter [facility] 04-06-2022 Instructions Ace Fermin APRN.CNP - 04/06/2022 2:28 PM EST PATIENT PREOPERATIVE INSTRUCTIONS Dr. Allen has scheduled you for your procedure at this surgery center: [facility]: [phone], [address] [id number] Please read below carefully for your personalized instructions. Arrival Time for Surgery: DATE: 04/18/2022 OR TIME: 8 AM CHECK IN TIME: 6 AM Please be aware that emergency situations arise, which may delay or change your surgical time. If this happens, we will notify you as soon as possible and regret any inconvenience. Dietary Restrictions: Follow OZZIE RN's instructions Blood Thinning Medications: - Stop NSAIDS (Ibuprofen, Advil, Aleve, Motrin, Celebrex, Mobic, Voltaren, Diclofenac etc.) 7 days before surgery, as directed by your surgeon. IF YOU TAKE ANY OF THE FOLLOWING BLOOD THINNERS, PLEASE CONTACT YOUR SURGEON AND THE PHYSICIAN WHO PRESCRIBES IT FOR YOU IN ORDER TO GET PERIOPERATIVE INSTRUCTIONS SOON POSSIBLE. BLOOD THINNERS: Aspirin , Coumadin, Plavix, Eliquis, Pradaxa, Xarelto, Lovenox, Brilinta, Effient, Savaysa, Arixtra, etc - Stop Vitamin E, fish oil, multivitamins, Marijuana, CBD oil and other over the counter herbals and dietary supplements 7 days before surgery. ?-This would not apply to cancer patients who are prescribed Marinol or any other prescription form on marijuana or CBD. Medications: Approved medications to take the morning of surgery with a sip of water: BP, Heart, thyroid, psych, seizure, and pain medications excluding NSAIDS. Use inhalers as prescribed. Please bring inhalers. Please follow up with the provider that manages your diabetes and how to prepare you for surgery. If you are taking the following medications for Type 2 diabetes: Canagliflozin (INVOKANA), dapagliflozin (FARXIGA), and empagliflozin (JARDIANCE) should each be discontinued at least 3 days before scheduled surgery. Ertugliflozin (STEGLATRO) should be discontinued at least four days before scheduled surgery. Pain Medications: - Your pain medication may cause thinning of your blood. Please see directions for Blood Thinning Medications. If you take any medications for erectile dysfunction-Cialis (Tadalafil), Levitra, Staxyn (Vardenafil) Viagra (Sildenenafil please do not take these for 48 hours before surgery. Medications to be taken with small amount of fluid on the morning of surgery: see medication list If you start any new medications after today's visit, please contact the surgeon's office. Important Reminders: -- If you have a stimulator, implant or pump that requires a remote please bring the remote with you day of surgery. - If you use CPAP/BIPAP, bring the machine with you to the surgery center. - If you are prescribed inhalers for breathing, continue using them AND bring them to the surgery center. - Candy, mints, gum and tobacco products are NOT permitted the morning of surgery. - Hearing aids, dentures and glasses may be worn the morning of surgery. - NO jewelry, body piercings, makeup, hairpins or contacts are to be worn the day of surgery. -NO keys, wallet, watches, or purses -Oral hygiene and a shower or bath is required the evening before or the morning of surgery. Use the Hibiclens body wash supplied to you along with the instruction. - NO lotion, creams, powders or deodorants on the skin the day of surgery -Wear loose, comfortable clothing that will accommodate bandages. -Your length of stay will be determined by your surgeon - You will need to have someone else (Family or friend) drive you home once discharged from the hospital. You are not allowed to drive yourself home after surgery. - YOU MUST HAVE A RESPONSIBLE ADMISSIONS EVALUATOR TAKE YOU HOME. A LEAD ASSISTANT MANAGER, CAB OR UBER ADMISSIONS EVALUATOR CANNOT BE MADE A RESPONSIBLE ADMISSIONS EVALUATOR. - We recommend that a responsible person stays with you overnight to take care of you. - You cannot stay in a hotel alone after outpatient surgery. You will not be permitted to have your surgery, if you do not have someone to take care of you. --IF you are having a TOTAL KNEE or HIP REPLACEMENT please bring your walker into the building with you. Update to visitor policy. Current policy will allow for 2 visitors. We are not allowing children in our waiting room. No food or drink is allowed. Everyone must keep their masks on. We are not allowing a visitor in our PACU area unless a minor, naphthalene operator or a special circumstance. Each patient is allowed two visitor on the day of surgery/procedure. Visitors will be asked to wear a mask that covers their nose and mouth at all times. The visitors will be allowed to stay with the patient prior to going to surgery/procedure. No visitors are allowed in our recovery room. -It is recommended patients have a 72 hour period between getting their vaccine and date of surgery. If you develop symptoms such as a fever, cold, or flu, or have other changes to your health within TWO DAYS of scheduled surgery or the morning of surgery, please contact the surgery center above. Personal Belongings: - Leave ALL valuables and money at home or with family members. - You will need a form of ID and insurance card to check in the morning of surgery. - You will have to wear a hospital gown during your stay but if you wish to bring undergarments for after surgery you may. Ace Fermin APRN.CNP 04/06/22 documented in this encounter [facility] 03-18-2022 Note HNO ID: [id number] Author: Rocky Allen MD Service: ? Author Type: Physician Type: Progress Notes Filed: 03/18/2022 10:05 AM Note Text: Rocky Allen M.D. Colon AND Rectal Surgery [address] [facility], [address] [place] [address] SUBJECTIVE Lucio Robert is a 61 year old White male with history of diverticulitis status post colostomy HPI The patient is a pleasant 61-year-old male who underwent a Ugarte's procedure with a right hemicolectomy for perforated diverticulitis in the past. He is generally doing well, noting that his stoma is somewhat erratic, sometimes emptying 2-3 times a day and sometimes not emptying all day. He is not on any bowel regimen currently. He denies any nausea, vomiting, or abdominal pain. We previously undertook a colonoscopy and XR colon study both of which did not show any significant abnormalities that would preclude colostomy reversal Review of Systems Constitutional: Negative for chills, fever and weight loss. HENT: Negative for congestion, ear pain, hearing loss, sinus pain and sore throat. Eyes: Negative for blurred vision, double vision and pain. Respiratory: Negative for cough, shortness of breath and wheezing. Cardiovascular: Negative for chest pain, palpitations and leg swelling. Gastrointestinal: Negative for abdominal pain, constipation, diarrhea, heartburn, nausea and vomiting. Genitourinary: Negative for dysuria, frequency and urgency. Musculoskeletal: Negative for back pain, joint pain and neck pain. Skin: Negative for itching and rash. Neurological: Negative for dizziness, weakness and headaches. Endo/Heme/Allergies: Negative. Negative for environmental allergies. Does not bruise/bleed easily. Psychiatric/Behavioral: Negative for depression and memory loss. The patient is not nervous/anxious and does not have insomnia. PAST MEDICAL HISTORY Diagnosis Date Appendicitis Arthritis Diverticulitis 2020 with pelvic abscess PVC (premature ventricular contraction) PAST SURGICAL HISTORY Procedure Laterality Date APPENDECTOMY ARTHROSCOPY KNEE DIAGNOSTIC W/WO SYNOVIAL BX SPX Bilateral menisectomy PAST SURGICAL HISTORY OF 2019 open sigmoid and right hemicolectomy colectomy with colostomy Social History Tobacco Use Smoking status: Never Smokeless tobacco: Never Vaping Use Vaping Use: Never used Substance Use Topics Alcohol use: Not Currently Drug use: Never FAMILY HISTORY Problem Relation Age of Onset other (diverticulitis) Mother Heart Father The ROS, medical, surgical, family, and social history were reviewed by Rocky Allen MD ALLERGIES No Known Allergies Current Outpatient Medications Medication Sig terbinafine HCl (LAMISIL) 250 mg tablet allopurinol (ZYLOPRIM) 300 mg tablet valACYclovir (VALTREX) 1 gram Valacyclovir Hcl Active 1000 MG Q12H June 19, 2019 9:15am naproxen sodium (ANAPROX) 220 mg tablet Take 220 mg by mouth twice daily with meals. loratadine (CLARITIN) 10 mg tablet Take 10 mg by mouth once daily. meloxicam (MOBIC) 15 mg tablet Take by mouth. (Patient not taking: Reported on 03/18/2022) No current facility-administered medications for this visit. OBJECTIVE BP 122/80 (BP Site: Left Arm, BP Position: Sitting, BP Cuff Size: Large Adult) Pulse 82 Ht 177.8 cm (5' 10 ) Wt 116.1 kg (256 lb) BMI 36.73 kg/m? BMI 36.73 kg/(m2) Physical Exam Constitutional: General: He is not in acute distress. Appearance: Normal appearance. He is not ill-appearing. Cardiovascular: Rate and Rhythm: Normal rate and regular rhythm. Heart sounds: No murmur heard. No friction rub. No gallop. Pulmonary: Effort: Pulmonary effort is normal. No respiratory distress. Breath sounds: Normal breath sounds. No wheezing or rales. Abdominal: General: There is no distension. Palpations: Abdomen is soft. There is no hepatomegaly. Tenderness: There is no abdominal tenderness. Comments: Colostomy in the left lower quadrant is pink and healthy, mild prolapse about 3 to 4 cm. Musculoskeletal: General: No deformity. Normal range of motion. Skin: General: Skin is warm and dry. Findings: No rash. Neurological: Mental Status: He is alert and oriented to person, place, and time. Gait: Gait normal. Psychiatric: Mood and Affect: Mood normal. Judgment: Judgment normal. Plan ASSESSMENT/PLAN: 1. S/P colostomy (HCC) - ICD9: V44.3, ICD10: Z93.3 (primary diagnosis) We had a long discussion about the risks and benefits of reversal surgery, and he would like to proceed with this. We will discuss with his primary care physician and if medical optimization that he would recommend. 2. Diverticulitis - ICD9: 562.11, ICD10: K57.92 I did discuss with him that I would like him to take a fiber supplement, especially after reversal surgery is healed, to prevent long-term risk of diverticulitis recurrence. He can take this now to see (more content not included)... [facility] 03-18-2022 Instructions Rocky Allen MD - 03/18/2022 10:03 AM EST documented in this encounter [facility] 03-18-2022 History of Presen t illness Narrative Images from the original note were not included. Rocky Allen M.D. Colon & Rectal Surgery [address] [facility], [address] [place] [address] YARELIS Robert is a 61 year old White male with history of diverticulitis status post colostomy HPI The patient is a pleasant 61-year-old male who underwent a Ugarte's procedure with a right hemicolectomy for perforated diverticulitis in the past. He is generally doing well, noting that his stoma is somewhat erratic, sometimes emptying 2-3 times a day and sometimes not emptying all day. He is not on any bowel regimen currently. He denies any nausea, vomiting, or abdominal pain. We previously undertook a colonoscopy and XR colon study both of which did not show any significant abnormalities that would preclude colostomy reversal Review of Systems Constitutional: Negative for chills, fever and weight loss. HENT: Negative for congestion, ear pain, hearing loss, sinus pain and sore throat. Eyes: Negative for blurred vision, double vision and pain. Respiratory: Negative for cough, shortness of breath and wheezing. Cardiovascular: Negative for chest pain, palpitations and leg swelling. Gastrointestinal: Negative for abdominal pain, constipation, diarrhea, heartburn, nausea and vomiting. Genitourinary: Negative for dysuria, frequency and urgency. Musculoskeletal: Negative for back pain, joint pain and neck pain. Skin: Negative for itching and rash. Neurological: Negative for dizziness, weakness and headaches. Endo/Heme/Allergies: Negative. Negative for environmental allergies. Does not bruise/bleed easily. Psychiatric/Behavioral: Negative for depression and memory loss. The patient is not nervous/anxious and does not have insomnia. PAST MEDICAL HISTORY Diagnosis Date Appendicitis Arthritis Diverticulitis 2019 with pelvic abscess PVC (premature ventricular contraction) PAST SURGICAL HISTORY Procedure Laterality Date APPENDECTOMY ARTHROSCOPY KNEE DIAGNOSTIC W/WO SYNOVIAL BX SPX Bilateral menisectomy PAST SURGICAL HISTORY OF 2019 open sigmoid and right hemicolectomy colectomy with colostomy Social History Tobacco Use Smoking status: Never Smokeless tobacco: Never Vaping Use Vaping Use: Never used Substance Use Topics Alcohol use: Not Currently Drug use: Never FAMILY HISTORY Problem Relation Age of Onset other (diverticulitis) Mother Heart Father The ROS, medical, surgical, family, and social history were reviewed by Rocky Allen MD ALLERGIES No Known Allergies Current Outpatient Medications Medication Sig terbinafine HCl (LAMISIL) 250 mg tablet allopurinol (ZYLOPRIM) 300 mg tablet valACYclovir (VALTREX) 1 gram Valacyclovir Hcl Active 1000 MG Q12H June 19, 2019 9:15am naproxen sodium (ANAPROX) 220 mg tablet Take 220 mg by mouth twice daily with meals. loratadine (CLARITIN) 10 mg tablet Take 10 mg by mouth once daily. meloxicam (MOBIC) 15 mg tablet Take by mouth. (Patient not taking: Reported on 03/18/2022) No current facility-administered medications for this visit. OBJECTIVE BP 122/80 (BP Site: Left Arm, BP Position: Sitting, BP Cuff Size: Large Adult) Pulse 82 Ht 177.8 cm (5' 10 ) Wt 116.1 kg (256 lb) BMI 36.73 kg/m BMI 36.73 kg/(m^2) Physical Exam Constitutional: General: He is not in acute distress. Appearance: Normal appearance. He is not ill-appearing. Cardiovascular: Rate and Rhythm: Normal rate and regular rhythm. Heart sounds: No murmur heard. No friction rub. No gallop. Pulmonary: Effort: Pulmonary effort is normal. No respiratory distress. Breath sounds: Normal breath sounds. No wheezing or rales. Abdominal: General: There is no distension. Palpations: Abdomen is soft. There is no hepatomegaly. Tenderness: There is no abdominal tenderness. Comments: Colostomy in the left lower quadrant is pink and healthy, mild prolapse about 3 to 4 cm. Musculoskeletal: General: No deformity. Normal range of motion. Skin: General: Skin is warm and dry. Findings: No rash. Neurological: Mental Status: He is alert and oriented to person, place, and time. Gait: Gait normal. Psychiatric: Mood and Affect: Mood normal. Judgment: Judgment normal. Plan ASSESSMENT/PLAN: 1. S/P colostomy (HCC) - ICD9: V44.3, ICD10: Z93.3 (primary diagnosis) We had a long discussion about the risks and benefits of reversal surgery, and he would like to proceed with this. We will discuss with his primary care physician and if medical optimization that he would recommend. 2. Diverticulitis - ICD9: 562.11, ICD10: K57.92 I did discuss with him that I would like him to take a fiber supplement, especially after reversal surgery is healed, to prevent long-term risk of diverticulitis recurrence. He can take this now to see if it helps with the inconsistency in his bowel habits, but we will hold this around the time of surgery. INFORMED CONSENT Lucio Robert Medical Record: [id number] Date: 03/18/2022 Procedure: Laparoscopic colostomy reversal, ERAS, possible blood products The risks, benefits and anticipated outcomes of the procedure, the risks and benefits of the alternatives to the procedure and the roles and tasks of the personnel to be involved were discussed with the patient and the patient consents to the procedure and agrees to proceed. I verify that I personally obtained Lucio Robert's consent. Rocky Allen MD Dept of [facility] Follow up: Return for Surgery. Rocky Allen M.D. Please Note: This office note has been created using [employer], a speech recognition software program, and may contain errors including punctuation, grammar, spelling, gender, and inappropriate words or phrases that pertain to the sytem. documented in this encounter [facility] 04-12-2021 Miscellaneous Notes PT received prep for colonoscopy, has time, date and location. Also, went over the barium enema instructions, time, date and address. Akin Kauffman documented in this encounter [facility] 04-08-2021 Miscellaneous Notes lvm to cortney procedure documented in this encounter [facility] 02-02-2021 Note HNO ID: [id number] Author: Mirza Jama MD Service: ? Author Type: Physician Type: Progress Notes Filed: 02/02/2021 10:48 AM Note Text: HISTORY AND PHYSICAL Lucio Robert 1960 REFERRING PHYSICIAN: Mirza Jama MD CHIEF COMPLAINT: Established Patient HPI: The patient is a 60 year old male with a complaint of S/p colostomy (hcc) (primary encounter diagnosis). Back in December of 2019 I initially saw this patient who presented with right lower quadrant abdominal pain that got so severe that he took some Percocet and went home. He has had episodes of diverticulitis in the past and just thought that this was another episode. He underwent an extensive surgery with a limited right hemicolectomy and a sigmoid colectomy and end colostomy. I have attached my operative note to this dictation. He presents today for discussion of colostomy takedown. PAST MEDICAL HISTORY Diagnosis Date - Arthritis - Diverticulitis 2019 with pelvic abscess - PVC (premature ventricular contraction) PAST SURGICAL HISTORY Procedure Laterality Date - DIAGNOSTIC ARTHROSCOPY KNEE 2019 menisectomy - PAST SURGICAL HISTORY OF 2019 open sigmoid and right hemicolectomy colectomy with colostomy Current Outpatient Medications Medication Sig - naproxen sodium (ALEVE) 220 mg tablet Take 220 mg by mouth twice daily with meals. - loratadine (CLARITIN) 10 mg tablet Take 10 mg by mouth once daily. No current facility-administered medications for this visit. ALLERGIES: Patient has no known allergies. PERSONAL HISTORY: Social History Tobacco Use - Smoking status: Never Smoker - Smokeless tobacco: Never Used Substance Use Topics - Alcohol use: Not Currently - Drug use: Never FAMILY HISTORY: No family history on file. REVIEW OF SYMPTOMS: The review of systems data was entered by the nurse and reviewed by nd Nursing Notes: Rayne Landaverde RN 02/02/2021 9:43 AM Signed REVIEW OF SYSTEMS: General: The patient denies fatigue, denies weight loss, denies weight gain, denies feeling hot, and denies feelings of cold. Eyes: The patient denies glaucoma, denies eye injury/surgery, wears glasses or contacts. Ear/Nose/Throat: The patient denies allergies, NOTES hayfever, denies ear infections, and denies bloody noses. Cardiovascular: The patient denies chest pain, denies heart disease, denies high blood pressure,denies cardiac stent, denies prior heart attack, NOTES irregular heart beat, denies high cholesterol, denies poor circulation, denies heart failure, other cardiac issues, denies claudication, denies cold feet, denies peripheral arterial stent. Respiratory: The patient denies tuberculosis, denies pneumonia, denies frequent cough, denies pulmonary embolism, denies shortness of breath, and denies coughing up blood. Gastrointestinal: The patient denies difficulty swallowing, denies acid reflux, denies ulcers, denies vomiting, denies jaundice/hepatitis, denies gallbladder problems, denies black or tarry stools, denies hemorrhoids, denies bleeding from rectum, NOTES diverticulitis, denies constipation, denies diarrhea, denies loss of stool control, and denies hernias. Kidney/Bladder: The patient denies kidney stones, denies urine infections, and denies bloody urine. Skin: The patient denies a history of skin cancer, denies bleeding/changing moles, and denies a history of skin rash. Neurologic: The patient denies a history of epilepsy/convulsions, denies headaches, denies head/spinal injuries, and denies stroke/TIA. Psychiatric: The patient denies psychiatric medications, denies depression, and denies voices, denies substance abuse. Endocrine: The patient denies thyroid disorders, denies diabetes, and denies hormonal problems. Hematologic: The patient denies a history of bruising, denies bleeding, and denies anemia, denies blood clots. Infections: The patient denies a history of measles and mumps, denies rheumatic fever, and denies sexually transmitted diseases. Musculoskeletal: The patient denies back pain/injury, NOTES back problems, denies sciatica, denies knee/foot trouble, NOTES arthritis, or NOTES gout. When was patient's last Mammogram screening? N/A Last Colonoscopy: Unknown Rayne Landaverde RN PHYSICAL EXAMINATION: General: The patient is 60 year old male, well nourished, well hydrated in no acute distress. The patient is oriented to time, place, and person. VITALS: Blood pressure 154/78, pulse 99, temperature 37.1 ?C (98.8 ?F), temperature source Temporal Artery, weight 119.3 kg (263 lb), SpO2 100 %. HEENT: Normal cephalic, ataumatic, pupils are equally round, sclera are anicteric, mucous membranes are moist, oropharynx is clear. Neck has no masses, asymmetry or lymphadenopathy. Thyroid is unremarkable. Abdominal exam: Soft, nontender, with no palpable masses. No hepatosplenomegaly. No palpable hernias. Stoma is viable no parastomal herni (more content not included)... [facility] History of colon cancer- Primary Personal history of malignant neoplasm of large intestine History of colon cancer Personal history of malignant neoplasm of large intestine [facility] Diagnosis Preop examination- Primary Preoperative examination, unspecified Essential (primary) hypertension Unspecified essential hypertension Class 2 severe obesity due to excess calories with serious comorbidity and body mass index (BMI) of 36.0 to 36.9 in adult (HCC) Ventricular premature beats Other premature beats S/P colostomy (HCC) [Z93.3 (ICD-10-CM)] Colostomy status History of colon cancer Personal history of malignant neoplasm of large intestine [facility] Diagnosis Diverticulitis- Primary Diverticulitis of colon (without mention of hemorrhage) documented in this encounter [facility] Summary Purpose Family History No Family History Records FoundNo Family History Records Found Advance Directives No Advanced Directives Records FoundNo Advanced Directives Records Found Additional Source Comments (unrecognized sect ion and content) No Status Records FoundNo Status Records Found INFORMATION SOURCE (unrecogn ized section and content) DATE CREATED AUTHOR AUTHOR'S CLEM MUNOZ 05/19/2022 [facility] Source Comments (unrecognize d section and content) In the event this informatio n is protected by the Federal Confidentiality of Alcohol and Drug Abuse Patient Records regulations: The Federal rules restrict any use of the information to criminally investigate or prosecute any alcohol or drug abuse patient.[facility] the event this information is protected by the Federal Confidentiality of Alcohol and Drug Abuse Patient Records regulations: The Federal rules restrict any use of the information to criminally investigate or prosecute any alcohol or drug abuse patient.[facility] the event this information is protected by the Federal Confidentiality of Alcohol and Drug Abuse Patient Records regulations: The Federal rules restrict any use of the information to criminally investigate or prosecute any alcohol or drug abuse patient.[facility] the event this information is protected by the Federal Confidentiality of Alcohol and Drug Abuse Patient Records regulations: The Federal rules restrict any use of the information to criminally investigate or prosecute any alcohol or drug abuse patient.[facility] the event this information is protected by the Federal Confidentiality of Alcohol and Drug Abuse Patient Records regulations: The Federal rules restrict any use of the information to criminally investigate or prosecute any alcohol or drug abuse patient.[facility] the event this information is protected by the Federal Confidentiality of Alcohol and Drug Abuse Patient Records regulations: The Federal rules restrict any use of the information to criminally investigate or prosecute any alcohol or drug abuse patient.[facility] the event this information is protected by the Federal Confidentiality of Alcohol and Drug Abuse Patient Records regulations: The Federal rules restrict any use of the information to criminally investigate or prosecute any alcohol or drug abuse patient.[facility] the event this information is protected by the Federal Confidentiality of Alcohol and Drug Abuse Patient Records regulations: The Federal rules restrict any use of the information to criminally investigate or prosecute any alcohol or drug abuse patient.[facility] DaytonIn the event this information is protected by the Federal Confidentiality of Alcohol and Drug Abuse Patient Records regulations: The Federal rules restrict any use of the information to criminally investigate or prosecute any alcohol or drug abuse patient.[facility] DaytonIn the event this information is protected by the Federal Confidentiality of Alcohol and Drug Abuse Patient Records regulations: The Federal rules restrict any use of the information to criminally investigate or prosecute any alcohol or drug abuse patient.[facility] Reason for Visit (unrecogniz ed section and content) Reason Comments Patient Update Reason Comments Established Patient Discuss reversal Specialty Diagnoses / Procedures Referred By Contac t Referred To Contact General Surgery / GENERAL SURGERY Diagnoses Discuss reversal surgery Procedures OFFICE/OUTPATIENT ESTABLISHED MOD MDM 30-39 MIN EST PATIENT Self Rocky Allen MD [address] [address] Referral ID Status Reason Start Date Expiration Date V isits Requested Visits Authorized [id number] Authorized 03/02/2022 03/12/2023 99 99 Reason Comments Patient Education Reason Onset Date Comments Personal Insurance Advisor - Hospital Follow Up 04/26/2022 Reason Onset Date Comments Post Op Drainage 05/02/2022 Reason Comments Post Op LAP CLOSURE OF ENTER OSTOMY W/ RESECTION & ANASTOMOSIS Reason Onset Date Comments Personal Insurance Advisor - Hospital Follow Up 05/17/2022 Care Teams (unrecognized sec tion and content) Solar Installation Manager Relationship Specialty Start Date End Date Aurelia Juares MD [address] [place], [place] [id number] PCP - General Family Medicine 01/27/21 Solar Installation Manager Relationship Specialty Start Date End Date Aurelia Juares MD [address] [address] PCP - General Family Medicine 01/27/21 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 This clinical summary was aggregated from multiple sources. Caution should be exercised in using it in the provision of clinical care. This summary normalizes information from multiple sources, and as a consequence, information in this document may materially change the coding, format and clinical context of patient data. In addition, data may be omitted in some cases. CLINICAL DECISIONS SHOULD BE BASED ON THE PRIMARY CLINICAL RECORDS. [facility] [employer] provides no warranty or guarantee of the accuracy or completeness of information in this document.
[2023-04-04] MEDS: Lactated Ringers 1,000 ML 15 ML IV (07:55)
[2023-04-04 07:57] VITALS: BP 126/76; PULSE 74; RESP 18; TEMP 36.5; O2SAT 96; BMI 33.5
--- NOTE | 2023-04-04 09:06 | HP.PCM_ITS ---
History and Physical Date of Admission: 04/04/23 [facility] [address] [place] [address] OFFICE VISIT Date of Service: 03/29/23 MR#: [id number] Acct: [id number] Name: EDDIE KLINE Rep #: [id number] : 1960 Provider: Dr. Dorian Pandey DO Age/Sex: 62/M Location: [facility] Status: Signed Intake Vital Signs 02/21/2306:55 Height 5 ft 10 in Intake Visit Reasons: right knee Chief Complaint: Right knee post op Is patient in pain?: Yes Allergies No Known Allergies Allergy (Verified 03/29/23 13:33) Medications loratadine 10 mg capsule 10 mg PO DAILY PRN PRN Allergies 04/23/19 [History Confirmed 03/29/23] allopurinol 300 mg tablet 300 mg PO DAILY 06/17/21 [History Confirmed 03/29/23] valacyclovir 500 mg tablet 500 mg PO Q12H PRN cold sores 06/17/21 [History Confirmed 03/29/23] psyllium husk 0.4 gram capsule (Daily Fiber) 0.4 g PO DAILY 02/06/23 [History Confirmed 03/29/23] acetaminophen 500 mg tablet 1,000 mg (2 x 500 mg) PO Q6H PRN #100 tabs 03/09/23 [Rx Confirmed 03/29/23] oxycodone 5 mg tablet 5 - 10 mg (1 - 2 x 5 mg) PO Q4H PRN pain 7 days #56 tabs 03/17/23 [Rx Confirmed 03/29/23] naproxen sodium 220 mg capsule (Aleve) 220 mg PO BID PRN 03/29/23 [History Confirmed 03/29/23] PFSH Medical History Acute appendicitis Alcohol use Arthritis Cardiology follow-up encounter Cervical radicular pain Diverticulitis Essential hypertension Gout History of echocardiogram History of irregular heartbeat History of steroid therapy Non-smoker Obesity Pelvic abscess in male Perforated abdominal viscus PVC (premature ventricular contraction) Wears glasses Surgical History History of appendectomy (12/19/19) History of arthroscopy of both knees History of colonoscopy History of colostomy reversal History of esophagogastroduodenoscopy (EGD) History of partial colectomy (12/2019) Family History Son Heart diseaseOther Alcoholism Bowel disease Social History Smoking Status: Never smoker second hand exposure: No alcohol intake: current alcohol intake frequency: holidays/special occasions only Alcohol type: beer substance use type: does not use caffeine: Yes what type of physical activity do you participate in: none frequency: does not exercise HPI right knee Details: This documentation accurately reflects the service provided and the decisions made by me, Dr. Dorian Pandey, DO 03/29/23 0816. Part of today?s visit was documented by [ ], acting as scribe. EDDIE KLINE is a 62 year old M here today for s/p Right total knee arthroplasty CT guided Robotic Assisted dos 02/21/23. Patient states that he has a sharp pain over his medial patella when he does knee flexion. He is taking oxycodone to help with his pain during physical therapy. He has difficulty with doing bike due to his stiffness. Patient continues to use his cane to ambulate. He states that his swelling has decreased but he continues to have swelling. He has been icing his knee daily. He is also taking aleve and tylenol for pain. Ortho Exam General General: Yes no acute distress Neurologic: Yes alert and Yes oriented x3 Psychologic: Yes reasonable and appropriate Right Knee Skin/Wound: Yes healed, No erythema, No ecchymosis and Yes swelling Homans Sign: No Knee ROM: Yes ROM-Extension -20 to 0 (full) and Yes ROM-Flexion 0-140 (58) Examination: No Crepitus Stability: NML: Anterior Drawer, NML: Beronica, NML: Posterior Drawer, NML: Valgus 0, NML: Valgus 30, NML: Varus 0 and NML: Varus 30 Patella Translation: 1 Patella Grind: No KNEE: no joint effusion. No erythema no sign of infection significant stiffness with knee flexion he does have full extension, no collateral instability Left Knee Patella Translation: 1 Head: Normocephalic Atraumatic Chest: symmetrical rise, non-labored breathing, no audible wheeze Abdomen: no guarding, non-rigid Supplemental Info 11/09/2022 x-ray right knee: Advanced tricompartmental knee arthrosis, there is varus deformity and lateral subluxation of the tibia 11/09/2022 x-ray left knee: Advanced tricompartmental knee arthrosis, there is varus deformity and lateral subluxation of the tibia Coding Level of Care Code Global Post Op Diagnoses Fibrosis of right knee joint M24.661 Laterality: right Assessment and Plan Assessment and Plan (1) Arthrofibrosis of knee joint: Status: Acute Qualifiers: Laterality: right Qualified Code(s): M24.661 - Ankylosis, right knee Orders: Orders Knee 3 Views Today M25.561 - Pain in right knee Plan Spoke with the patient about doing a manipulation under anesthesia with an intra-articular steroid injection due to his stiffness. He should get an xray prior to the MALIA. Patient will have increased pain after the manipulation and will need to take more pain medication post op. He will need to do formal physical therapy starting after the manipulation. Follow up for 1 month after the manipulation or sooner if pain, swelling, numbness or associated symptoms, or concerns develop. All questions answered. Patient in agreement of plan. 03/29/23 1412 <Electronically signed by Dorian Pandey DO> Date Dorian Pandey DO Cosigner Signature: Date (if applicable) I have examined the patient and the H&P has been reviewed. There are no clinical changes since date of exam.
[2023-04-04] MEDS: Cefazolin 2 GM in 0.9% Normal Saline (100mL Bag) 100 ML IV (09:12)
[2023-04-04] MEDS: dexAMETHasone 4 MG/ML Vial (09:25)
[2023-04-04] MEDS: Lidocaine 1% /Epi 1:100 (20ml) 20 ML Vial (09:25)
[2023-04-04 09:33] VITALS: BP 114/65; BP 126/76; PULSE 82; RESP 18; TEMP 36.6; O2SAT 95
[2023-04-04 09:35] VITALS: BP 119/66; BP 126/76; PULSE 78; RESP 18; O2SAT 95
--- NOTE | 2023-04-04 09:35 | PCM.OP.BLANK ---
Operative Report Date of Procedure: 04/04/23 Preoperative diagnosis: Arthrofibrosis right knee Postoperative diagnosis: Same Procedure: Manipulation under anesthesia [with intra-articular steroid injection] Anesthesia: General EBL: None Complications: None Condition: Able to PACU Indication for procedure: This is a 62-year-old male who underwent total knee arthroplasty approximately 6 weeks ago who is failed to gain her range of motion wish to undergo an elective manipulation under anesthesia to increase range of motion. risk benefits and alternatives were reviewed including risk of bleeding infection nerve, artery, bone, tissue damage, blood clot need for further surgery and continued pain. Procedure: Patient was met in the preoperative holding area once again the operative extremity was identified by both patient and physician and was marked. Patient was brought back to the operating room anesthesia was started. A timeout was called into the proper patient procedure and extremity were being contemplated. The pre-operative range of motion was near full extension extension and achieving 58 degrees flexion. After patient was adequately anesthetized extension manipulation was performed followed by patellar mobilization followed by gradual flexion scar tissue was palpated being released with no concerning signs for tendon rupture or fracture. Postoperative range of motion was much improved with full extension and 110 degrees of flexion. Of note his left leg only at 100 degrees of flexion. Following the manipulation using sterile technique from the superior lateral position an intra-articular injection with 40 mg of depomedrol and 8 cc 0.25%marcaine with epi was injected. bandaid applied
--- NOTE | 2023-04-04 09:36 | EX.PCM.DISCH ---
Discharge Instructions Diet Discharge Diet: No restrictions Activity Discharge Activity: Return to Normal Activity Dressing / Incision Call your doctor if you observe: Shortness of breath and Chest pain Additional Dressing/Incision Instructions:: Encourage full knee flexion and extension regularly. Start physical therapy immediately. May shower and return to activities as normal. Keep pain controlled with medications as discussed with Dr. Pandey in order to keep full range of motion. Ice and elevate next 72 hours. Follow-up with Dr. Pandey and call with any questions or concerns. Follow Up Care Please Follow Up With: Dorian Pandey, When: 2 weeks Test Results: Test results from this visit will be discussed in further detail at your follow-up appointment, if applicable. Discharge Plan Admission Primary Reason for Your Visit: Arthrofibrosis right total knee arthroplasty Attending Provider: Dorian Pandey Primary Care Provider: Eileen Steward Discharge Orders/Prescriptions Prescriptions: New oxycodone 5 mg tablet 5 - 10 mg PO Q4H PRN (Reason: pain) 7 Days Qty: 40 0RF Continued acetaminophen 500 mg tablet 1,000 mg PO Q6H PRN Qty: 100 0RF naproxen sodium [Aleve] 220 mg capsule 220 mg PO BID loratadine 10 MG capsule 10 mg PO DAILY PRN PRN (Reason: Allergies) psyllium husk [Daily Fiber] 0.4 gram capsule 0.4 g PO DAILY allopurinol 300 mg tablet 300 mg PO DAILY valacyclovir 500 mg tablet 500 mg PO Q12H PRN (Reason: cold sores) No Action oxycodone 5 mg tablet 5 - 10 mg PO Q4H PRN (Reason: pain) 7 Days Qty: 56 0RF Referrals / Follow Up: Eileen Steward, ELECTRONICS RESEARCH ENGINEER-C [Primary Care Provider] - Disposition Disposition (needs filled in before D/C Order can be placed): Home, Self Care
[2023-04-04 09:40] VITALS: BP 110/63; BP 126/76; PULSE 79; RESP 18; O2SAT 82
[2023-04-04 09:44] VITALS: BP 125/88; BP 126/76; PULSE 72; RESP 18; TEMP 36.3; O2SAT 98
[2023-04-04 10:08] VITALS: BP 126/76
== END 2023-04-04 10:15 | disposition home or self-care (01) ==
LOC: SDC 07:32 → AC 07:32
PROVIDERS: PCP Nurse Practitioner Family; Referring Provider Orthopaedic Surgery; Visit Provider Orthopaedic Surgery
PROC: (CPT 27570; principal; 2023-04-04 09:10)
DX: M24.661 Ankylosis, right knee (principal); I10 Essential (primary) hypertension; Z96.651 Presence of right artificial knee joint; Z79.899 Other long term (current) drug therapy; E66.9 Obesity, unspecified; Z68.33 Body mass index [BMI] 33.0-33.9, adult
CPT/HCPCS: 27570; J7120

== ENCOUNTER → 2023-04-13 | Outpatient (CLI) | payer OTHER, SELFPAY ==
--- NOTE | 2023-04-13 15:11 | RAD_ITS ---
INDICATION: pain EXAMINATION/TECHNIQUE: X-RAY - RIGHT XR Knee 3 Views 3 VIEWS COMPARISON: 03/29/2023 FINDINGS: SOFT TISSUES: There is moderate soft tissue swelling No radiopaque foreign body. BONES/JOINTS: 1. Postoperative changes of total knee arthroplasty. There is joint effusion and soft tissue swelling. 2. There is a defect along the anterior aspect of the medial side of the patella which was not present on prior exam. 3. There is a linear defect in the medial supracondylar ridge which was not present on prior exam. No evidence of loosening of hardware. No other acute bony changes noted. RAD/Knee 3 Views IMPRESSION: 1. Total knee arthroplasty. No change in alignment. 2. There is however development of a linear defect along the anterior surface of the medial aspect of the patella. This is of uncertain etiology, however focal area of infectious or inflammatory erosion are a consideration. Developing osteomyelitis is therefore a consideration. This does not appear to represent a fracture. 3. Additional note of a linear defect in the femoral medial supracondylar ridge. This was not present on prior exam, and a subtle fracture is a consideration. Electronically Signed: Lucio Grant MD at 18:44 EST ,
== END | disposition home or self-care (01) ==
PROVIDERS: PCP Nurse Practitioner Family; Referring Provider Orthopaedic Surgery; Visit Provider Orthopaedic Surgery
DX: M25.561 Pain in right knee (principal); Z96.651 Presence of right artificial knee joint; M24.669 Ankylosis, unspecified knee
CPT/HCPCS: 73562

== ENCOUNTER → 2023-04-20 | Outpatient (CLI) | payer OTHER, SELFPAY ==
--- NOTE | 2023-04-20 15:17 | RAD_ITS ---
STUDY: X-RAY - RIGHT KNEE REASON FOR EXAM: Male, 62 years old. Status post right total knee arthroplasty. TECHNIQUE: 3 views of the right knee. COMPARISON: Right knee radiographs dated 04/13/2023. FINDINGS: Again seen are postoperative changes related to right total knee arthroplasty with patellar resurfacing. The orthopedic hardware components are intact. There is persistent and unchanged lucency in the medial aspect of the patella, which could represent fracture versus osteomyelitis. There is a persistent linear defect in the medial supracondylar ridge, probably representing a healing nondisplaced fracture. Normal proximal tibiofibular articulation. There is a persistent large knee joint effusion. There is persistent prepatellar soft tissue swelling. RAD/Knee 3 Views IMPRESSION: Postoperative changes related to right total knee arthroplasty. Persistent and unchanged lucency in the medial aspect of the patella, which could represent fracture versus osteomyelitis. Persistent linear defect in the medial supracondylar ridge, probably representing a healing nondisplaced fracture. Persistent large knee joint effusion. Persistent prepatellar soft tissue swelling. Electronically Signed: Curtis Andino MD at 9:39 EST Reading Location ID and State: [facility] / [place] , Service support ,
== END | disposition home or self-care (01) ==
LOC: MTRAD 15:14
PROVIDERS: PCP Nurse Practitioner Family; Referring Provider Orthopaedic Surgery; Visit Provider Orthopaedic Surgery
DX: M24.661 Ankylosis, right knee (principal); G89.18 Other acute postprocedural pain
CPT/HCPCS: 73562

== ENCOUNTER → 2023-04-27 | Outpatient (CLI) | payer OTHER, SELFPAY ==
--- NOTE | 2023-04-27 16:03 | RAD_ITS ---
INDICATION: pain EXAMINATION/TECHNIQUE: X-RAY - RIGHT XR Knee 3 Views COMPARISON: FINDINGS: Status post total right knee replacement. The hardware components are well aligned. No acute bony injury. Mild prepatellar soft tissue edema. RAD/Knee 3 Views IMPRESSION: Status post total knee replacement. Electronically Signed: Alvaro Lowery DO at 23:19 EST ,
== END | disposition home or self-care (01) ==
LOC: MTRAD 16:03
PROVIDERS: PCP Nurse Practitioner Family; Referring Provider Orthopaedic Surgery; Visit Provider Orthopaedic Surgery
DX: M25.561 Pain in right knee (principal)
CPT/HCPCS: 73562

== ENCOUNTER → 2023-05-15 | Outpatient (CLI) | payer OTHER, SELFPAY ==
--- NOTE | 2023-05-15 15:04 | RAD_ITS ---
STUDY: X-RAY - PELVIS AND RIGHT HIP REASON FOR EXAM: Male, 62 years old. Pain. TECHNIQUE: 3 views of the pelvis and right hip. COMPARISON: None. FINDINGS: There is a non-specific bowel gas pattern. Normal visualized soft tissue structures. Normal bilateral iliac wings, sacroiliac joints and visualized sacrum. Normal bilateral superior and inferior pubic rami. Normal pubic symphysis. Normal bilateral ischial tuberosities. There are mild osteoarthritic changes of the femoral heads bilaterally with marginal osteophyte formation. There is mild osteoarthritic spur formation of the acetabular rims. There is no demonstrated acute fracture. RAD/HIP, UNI W/ Pelvis 2-3 Views IMPRESSION: Mild degenerative arthrosis of the hip joints bilaterally. Electronically Signed: Curtis Andino MD at 11:16 EST ,
== END | disposition home or self-care (01) ==
PROVIDERS: PCP Nurse Practitioner Family; Referring Provider Orthopaedic Surgery; Visit Provider Orthopaedic Surgery
DX: M25.551 Pain in right hip (principal)
CPT/HCPCS: 73502

== ENCOUNTER → 2023-05-29 | Outpatient (CLI) | payer OTHER, SELFPAY ==
[2023-05-29 16:40] LABS: AST(SGOT) 29 U/L (15-37); Alanine Aminotransfer ALT/SGPT 37 U/L (16-61); Albumin, Serum 4.5 g/dL (3.2-5.0); Alkaline Phosphatase 125 U/L (45-117); Bilirubin, Direct 0.12 mg/dL (0.00-0.30); Globulin 3.3 g/dL (2.2-4.2); Protein, Total 7.8 g/dL (6.4-8.2)
== END | disposition home or self-care (01) ==
PROVIDERS: PCP Nurse Practitioner Family; Referring Provider Podiatrist; Visit Provider Podiatrist
DX: B35.1 Tinea unguium (principal)
CPT/HCPCS: 36415; 80076

== ENCOUNTER 2023-06-15 09:00 | Outpatient (RCR) | payer OTHER, SELFPAY ==
--- NOTE | 2023-02-27 09:36 | HP.PTEVAL ---
Patient's Visit Information Visit Information Visit Information: LUCIO KLINE is a 62 year old M referred to Physical Therapy by Dr. Dorian Pandey DO with a diagnosis of R TKA DOS: 02/21/23. Date of Evaluation: 02/24/23 Physical Therapist: Jason Hernandez DPT Visit Plan Frequency: 3x /Week Duration: 6 Weeks Plan: 1) ROM progressing towards 0-0-120deg. 2) edema control, vaso and ice 3) gait progression, progressing away from AD when ready 4) quad, HS, glute strengthening Subjective Subjective: Pt. is here today for his initial evaluation for R TKA, DOS: 02/21/23. Pt. arrives walking okay, but has marked knee flexion in R stance phase. Pt. reports overall doing okay. Pt. is a young by [employer]str[employer]is[employer]. Pt. is also planning to have his alternate knee replaced as well, next year. Pt. reports 6/10 pain currently. He is having some trouble sleeping as well, but as expected. Pt. reports taking medication as prescribed. No calf pain, no fever, no difficulty breathing. Pt. has been doing in exercises as prescribed. Pt. is hopeful to increase his ROM and strength in order to get back to all of his work activities without limitations. Pain R knee: Pain Intensity (Out of 10): 5 Pain Intensity Range: 2 and 7 Objective Objective: POSTURE: Pt. has normal posture, except increased L lateral lean, lacks TKE on R LE in stance. PALPATION: Pt. marked edema in RLE, non pitting. 5cm difference at mid patella. Bandage in place to remove over the weekend. NEURO: normal sensation in BLEs. Pt. has normal achilles DTR. ROM: R knee: 0-8-81deg. Pt. has pain at both end ranges. Empty end feel. Pt. encouraged to stretch as much as possible. MMT: LLE knee: ext 45.1#, flexion 29.3#; hip: flexion 28.1#. RLE: ext: 0#, flexion 5#; hip: flexion 0#. GAIT: Pt. ambulates well with FWW. He does lack TKE during R stance. He also has limited knee flexion during swing. Marked increase in soreness with stance phase on R side. STAIRS: Pt. completed with step to pattern with 2 HR assistance Balance/Special Test Scores TUG Test Time Seconds: 58.3 WOMAC Total Score: 65 WOMAC Percentatge: 32.3000 Goals Goal 1:: LTG: Pt. to be I with HEP. Goal Time Frame: 4-6 Weeks Goal 2:: STG: pt. to have increased R knee ROM to 0-0-120deg allowing for increased tolerance to all functional mobility. Goal Time Frame: 2-4 Weeks Goal 3:: LTG: Pt. to have normal gait pattern without AD Goal Time Frame: 4-6 Weeks Goal 4:: STG: Pt. be able to sleep throughout the night without increase in symptoms. Goal Time Frame: 2-4 Weeks Goal 5:: STG: pt. to have symmetrical girth from knee to knee. Goal Time Frame: 2-4 Weeks Goal 6:: LTG: pt. to have equal strength between BLEs. Goal Time Frame: 4-6 Weeks Rehabilitation Potential Physical Therapy Diagnosis: Pt. has signs and symptoms consistent with S/P R TKA. Lucio has subsequent hypomobility, weakness, difficulty with gait. Pt. would benefit from PT to address the above limitations progressing back to all work and recreational activities. Rehabilitation Potential: Excellent Anticipated Interventions Patient/Client Instruction: Educate patient on: Condition, Plan of Care, Risk Factors and Benefits of Fitness Program For the Purpose of:: To improve decision making, To facilitate caregiver knowledge, To improve self management, To prevent re-injury, To improve ability to perform tasks related to life management and To improve tolerance to ADL's Therapeutic Exercise to Include: Strength training, Power training, Endurance training, Postural training, Flexibilty training, Gait and locomotor training, Passive ROM and Active ROM For the Purpose of:: To decrease pain, To decrease swelling/inflammation, To increase ROM, To improve nutrient delivery to tissue, To increase oxygenation perfusion, To improve gait and locomotor functions, To improve health of tissue, To decrease soft tissue restriction and To increase flexibility/ROM Manual Therapy Techniques to Include: Mobilization, Passive ROM and Soft tissue mobilization For the Purpose of:: To decrease pain, To decrease swelling/inflammation, To increase ROM, To improve nutrient delivery to tissue and To increase oxygenation perfusion Cryotherapy (ice pack, ice massage): Yes Vasopneumatic device: Yes For the Purpose of:: To decrease pain, To decrease swelling/inflammation, To increase ROM, To improve nutrient delivery to tissue and To increase oxygenation perfusion Text: Thank you for the opportunity to evaluate your patient. For Medicare and Medicare HMO plans, please review the plan of care and approve it. It will need to be FAXED BACK to us at [phone] for Medicare purposes. For Medicare only, by signing this I certify the plan of care. Please let me know if there are questions or concerns regarding this plan of care. Physician Signature: Date:
--- NOTE | 2023-05-11 14:06 | RAD_ITS ---
STUDY: X-RAY - RIGHT KNEE REASON FOR EXAM: Male, 62 years old. Status post right TKA. TECHNIQUE: 3 views of the right knee. COMPARISON: Right knee radiographs dated 04/27/2023. FINDINGS: There are stable postoperative changes related to right total knee arthroplasty with patellar resurfacing. The orthopedic hardware components are intact. There is no periprosthetic fracture. Normal proximal tibiofibular articulation. There is persistent prepatellar soft tissue edema. RAD/Knee 3 Views IMPRESSION: Stable right total knee arthroplasty, with no periprosthetic fracture. Persistent prepatellar soft tissue edema. Electronically Signed: Curtis Andino MD at 14:49 EST ,
--- NOTE | 2023-05-24 10:47 | HP.PTREVAL ---
Re-Evaluation Intro: Dr. Dorian Pandey, DO, It has been my pleasure to treat EDDIE KLINE over the last 35 visits for R TKA DOS: 02/21/23. Please see the progress note below for an update on the physical therapy plan of care! Subjective Subjective: Pt having some R hip pain, last time he saw Dr. Cote and he offered cortisone shot for bursitis and suggested deep pain is most likely d/t arthritis. Pt has appt. with chiro for R hip. Attempted to transition from STS to squats with HEP, more difficult but pt wanting to continue increasing strength. Objective Objective/Function: ROM: 104 flex, lacking 3 deg ext SQUAT: unsupported with no UE use, good form, not full depth STAIRS: anjum HR use, able to use unilateral with ascending but needs anjum for descending d/t fear of R knee giving out, fatigue with step ups on RLE GAIT: increased stance time on RLE d/t pain in L knee Pt overall doing well, has a good HEP routine established. Pt mostly limited by non-surgical side (L knee), and has felt that R knee is less painful, improving with strength, and able to take on more of the load with WB act. Plan Plan Plan: -Increase R quad strength, concentric and eccentric (functional movements, begin conservative and progress with workload as pt tolerates) -LE stretching/OP to increase ROM prn Added step ups to HEP, pt to come touch base after next appt to schedule more Balance/Gait/Functional tests Balance/Special Test Scores TUG Test Time Seconds: 58.3 Tug Test: >30sec.=impaired mobility WOMAC Total Score: 65 WOMAC Percentage: 32.3000 Goals Goals Goal 1:: LTG: Pt. to be I with HEP. Goal Time Frame: 4-6 Weeks Goal Progress: Goal Met Goal 2:: STG: pt. to have increased R knee ROM to 0-0-120deg allowing for increased tolerance to all functional mobility. Goal Time Frame: 2-4 Weeks Goal Progress: Progressing Goal 3:: LTG: Pt. to have normal gait pattern without AD Goal Time Frame: 4-6 Weeks Goal Progress: Progressing Goal 4:: STG: Pt. be able to sleep throughout the night without increase in symptoms. Goal Time Frame: 2-4 Weeks Goal Progress: Goal Met Goal 5:: STG: pt. to have symmetrical girth from knee to knee. Goal Time Frame: 2-4 Weeks Goal Progress: Goal Met Goal 6:: LTG: pt. to have equal strength between BLEs. Goal Time Frame: 4-6 Weeks Goal Progress: Progressing Anticipated Interventions Anticipated Interventions Patient/Client Instruction: Educate patient on: Condition, Plan of Care, Risk Factors and Benefits of Fitness Program For the Purpose of:: To improve decision making, To facilitate caregiver knowledge, To improve self management, To prevent re-injury, To improve ability to perform tasks related to life management and To improve tolerance to ADL's Therapeutic Exercise to Include: Strength training, Power training, Endurance training, Postural training, Flexibilty training, Gait and locomotor training, Passive ROM and Active ROM For the Purpose of:: To decrease pain, To decrease swelling/inflammation, To increase ROM, To improve nutrient delivery to tissue, To increase oxygenation perfusion, To improve gait and locomotor functions, To improve health of tissue, To decrease soft tissue restriction and To increase flexibility/ROM Manual Therapy Techniques to Include: Mobilization, Passive ROM and Soft tissue mobilization For the Purpose of:: To decrease pain, To decrease swelling/inflammation, To increase ROM, To improve nutrient delivery to tissue and To increase oxygenation perfusion Cryotherapy (ice pack, ice massage): Yes Vasopneumatic device: Yes For the Purpose of:: To decrease pain, To decrease swelling/inflammation, To increase ROM, To improve nutrient delivery to tissue and To increase oxygenation perfusion Re-Evaluation Ending Re-evaluation ending: Please do not hesitate to contact me at [phone] by phone or if you have questions or concerns regarding this new plan of care! Sincerely, Jason Hernandez DPT
--- NOTE | 2023-06-15 12:54 | HP.PTDCSUM ---
Discharge Summary D/C summary: It has been my pleasure to treat EDDIE KLINE referred by Dr. Dorian Pandey DO, with the diagnosis of R TKA DOS: 02/21/23 for a total of 42 visit(s). Discharge Date: 06/15/23 Please see the following information for a summary of their discharge status. Subjective Subjective: Pt reports doing well, has been keeping up with HEP. Pt has no pain, but has some occasional stiffness. R knee is feeling stronger, L knee still feels unstable. 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 Pain R knee: Pain Intensity (Out of 10): 0 Overall Improvement % Improvement: 90 Objective Objective/Function: ROM: 0 deg ext, flex 105 with some OP no pain MMT: symmetrical strength, RLE slightly stronger with hip ext and knee flex STS: able to perform from normal height chair, no use of UE STAIRS: reciprocal pattern, uses UE for balance/safety d/t instability of LLE (will be getting L TKA next winter) GAIT: increased stance time on RLE, pt keeps LLE in ABD position d/t instability, no AD Goals Goal 1:: LTG: Pt. to be I with HEP. Goal Progress: Goal Met Goal 2:: STG: pt. to have increased R knee ROM to 0-0-120deg allowing for increased tolerance to all functional mobility. Goal Progress: Progressing Goal 3:: LTG: Pt. to have normal gait pattern without AD Goal Progress: Goal Met Goal 4:: STG: Pt. be able to sleep throughout the night without increase in symptoms. Goal Progress: Goal Met Goal 5:: STG: pt. to have symmetrical girth from knee to knee. Goal Progress: Goal Met Goal 6:: LTG: pt. to have equal strength between BLEs. Goal Progress: Goal Met Plan Plan: Pt to d/c home with indep HEP D/C Information Discharge Comments: Pt met all goals and is able to manage HEP indep at home d/c sentence: If there are questions or concerns regarding this patient's physical therapy, please feel free to call me at [phone]. Thank you for the referral of this patient. Sincerely, Jason Hawkins Sipos, DPT Balance/Gait/Functional tests Balance/Special Test Scores Lower Extremity Functional Score: 68 TUG Test Time Seconds: 58.3 Tug Test: >30sec.=impaired mobility WOMAC Total Score: 65 WOMAC Percentage: 32.3000 Improvement % Improvement: 90
== END 2023-06-15 19:00 | disposition home or self-care (01) ==
LOC: PT 09:00
PROVIDERS: PCP Family Medicine; Referring Provider Orthopaedic Surgery; Visit Provider Orthopaedic Surgery
DX: M17.11 Unilateral primary osteoarthritis, right knee (principal); Z96.651 Presence of right artificial knee joint
CPT/HCPCS: 73562; 97016; 97110; 97112; 97140; 97161; 97530

== ENCOUNTER → 2023-09-20 | Outpatient (CLI) | payer OTHER, SELFPAY ==
--- NOTE | 2023-09-20 09:32 | RAD_ITS ---
STUDY: X-RAY - RIGHT FOOT CLINICAL: Male, 62 years old. PAIN IN FOOT AND ANKLE TECHNIQUE: 3 view(s) of the foot. COMPARISON: None. FINDINGS: There is a plantar calcaneal spur. Normal visualized subtalar, talonavicular, calcaneocuboid, tarsal and tarsometatarsal articulations. Normal metatarsi. Normal metatarsophalangeal joint of the great toe. Normal tibial and fibular sesamoid bones. Normal interphalangeal joint of the great toe. Normal phalanges of the great toe. Normal second through fifth metatarsophalangeal joints. Normal interphalangeal joints and phalanges of the lesser toes. The soft tissue structures are unremarkable. Soft tissue swelling. RAD/Foot min 3 Views IMPRESSION: Soft tissue swelling. Plantar spur. Electronically Signed: Mahin Sevilla MD at 10:33 EDT ,
== END | disposition home or self-care (01) ==
LOC: MTRAD 09:31
PROVIDERS: PCP Nurse Practitioner Family; Referring Provider Podiatrist; Visit Provider Podiatrist
DX: A52.16 Charcot's arthropathy (tabetic) (principal)
CPT/HCPCS: 73630

== ENCOUNTER → 2023-10-18 | Outpatient (CLI) | payer OTHER, SELFPAY ==
--- NOTE | 2023-10-18 15:36 | RAD_ITS ---
STUDY: X-RAY - RIGHT FOOT CLINICAL: Male, 63 years old. PAIN IN FOOT RIGHT TECHNIQUE: 3 views of the right foot. COMPARISON: Right foot radiographs dated 09/20/2023. FINDINGS: Intact talus, calcaneus, and tarsal bones. There is an unchanged small plantar calcaneal spur. Normal visualized subtalar, talonavicular, calcaneocuboid, tarsal and tarsometatarsal articulations. Normal metatarsi. Normal metatarsophalangeal joint of the great toe. Normal tibial and fibular sesamoid bones. Normal interphalangeal joint of the great toe. Normal phalanges of the great toe. Normal second through fifth metatarsophalangeal joints. Normal interphalangeal joints and phalanges of the lesser toes. There is persistent soft tissue swelling along the dorsum of the foot. There is no demonstrated fracture. RAD/Foot min 3 Views IMPRESSION: Persistent soft tissue swelling along the dorsum of the foot. Unchanged small plantar calcaneal spur. No demonstrated fracture. Electronically Signed: Curtis Andino MD at 11:39 EDT ,
== END | disposition home or self-care (01) ==
PROVIDERS: PCP Nurse Practitioner Family; Referring Provider Podiatrist; Visit Provider Podiatrist
DX: M14.671 Charcot's joint, right ankle and foot (principal)
CPT/HCPCS: 73630

== ENCOUNTER → 2023-11-20 | Outpatient (CLI) | payer OTHER, SELFPAY ==
--- NOTE | 2023-11-20 15:30 | MRI_ITS ---
STUDY: MRI RIGHT FOOT REASON FOR EXAM: Male, 63 years old. R/O CHARCOT TO RT MIDFOOT TECHNIQUE: Standardized fat and water weighted pulse sequences were obtained in all 3 orthogonal planes. COMPARISON: Right foot radiographs dated 10/18/2023. FINDINGS: There is a fracture at the base of the second metatarsal. There is a sprain of the Lisfranc ligament with thickening and increased intrasubstance signal (axial STIR series 12 image 9). There is marrow stress edema in all 3 cuneiforms as well as proximal first through third metatarsals. Normal bone marrow of the phalanges and visualized distal tibia/fibula, without fracture, periostitis, erosions or reactive bone edema. Normal sesamoids without sesamoiditis, fracture or avascular necrosis. There are no significant joint effusions. There are no extraarticular fluid collections. Normal intermetatarsal spaces without intermetatarsal ([place]) neuroma or bursitis. Normal visualized Achilles tendon. Normal visualized distal posterior tibialis tendon. Normal visualized distal anterior tibialis tendon. Normal visualized distal peroneus longus and brevis tendons. Normal visualized extensor digitorum longus, extensor hallucis longus, flexor digitorum brevis and flexor hallucis longus tendons. Normal visualized plantar fascia without fasciitis, fibromatosis or tear. Normal intrinsic muscles of the foot, without soft tissue masses or evidence of denervation atrophy. There is mild subcutaneous soft tissue edema along the dorsum of the foot. MRI/Lower Ext/No Jt/w/o IMPRESSION: Fracture at the base of the second metatarsal. Lisfranc ligament sprain. Marrow stress edema in all 3 cuneiforms as well as proximal first through third metatarsals. Mild subcutaneous soft tissue edema along the dorsum of the foot. Electronically Signed: Curtis Andino MD at 13:52 EDT ,
== END | disposition home or self-care (01) ==
LOC: MRI 14:58
PROVIDERS: PCP Nurse Practitioner Family; Referring Provider Podiatrist; Visit Provider Podiatrist
DX: A52.16 Charcot's arthropathy (tabetic) (principal)
CPT/HCPCS: 73718